=== PATIENT | female | born 1955 | race Caucasian/White ===

== ENCOUNTER 2022-03-22 09:41 | Observation (INO) | payer MEDICARE, SELFPAY ==
[2022-03-22] VITALS (8 sets, daily range): BP systolic 92–118; BP diastolic 49–58; PULSE 78–94; RESP 16–20; TEMP 36.3–38.5; O2SAT 94–97; BMI 35.4
--- NOTE | ~2022-03-22 | CT_ITS ---
EXAMINATION: CT abdomen pelvis wo con DATE: 03/22/2022 13:04 INDICATION: Abdominal pain. Leukocytosis. Fever. Diarrhea. TECHNIQUE: Computed tomography (CT) of the abdomen and pelvis was performed without intravenous contr ast. Automated exposure control and iterative reconstruction technique were employed. Exam dose: 193 6.93 mGy-cm total exam DLP. COMPARISON: None. FINDINGS: Mild discoid atelectasis or scarring at the lung bases. Normal Small sliding hiatal hernia.. Uniform the liver, spleen, pancreas are unremarkable. The gallbladder i s distended. No pericholecystic fluid or fat stranding. No bile duct or pancreatic duct dilatation. No Normal morphology of the left adrenal gland. Approximately 1.8 x 2.1 cm right adrenal mass, most likely an adenoma if there is no known malignancy . No renal mass lesion is evident on this limited noncontrast examination. No urinary tract calculus or hydroureteronephrosis. The urinary bladder is evacuated, not optimally demonstrated. The uterus and adnexal areas are unremarkable. Normal appendix. There is diverticulosis of the sigmoid colon; no CT evidence of diverticulitis. No b owel obstruction, bowel wall thickening, pneumatosis or intraperitoneal free air. There is atherosclerotic calcification but normal caliber of the abdominal aorta. No intraperitoneal or retroperitoneal or pelvic mass lesion or adenopathy or ascites. Bilateral severe hip osteoarthritis. There is levoscoliosis and severe degenerative disc disease throughout the lumbar and lumbosacral spi ne. IMPRESSION: Normal appendix Diverticulosis of the sigmoid colon; no CT evidence of diverticulitis Small sliding hiatal hernia 1.8 x 2.1 cm right adrenal mass Reviewed, dictated and finalized at [facility]. Reviewed, dictated and finalized at location A.
--- NOTE | ~2022-03-22 | XR_ITS ---
EXAMINATION: XR chest 1V portable DATE: 03/22/2022 11:37 INDICATION: Weakness. Leukocytosis. TECHNIQUE: A single frontal view of the chest was obtained. COMPARISON: Chest 2 views 03/27/15 FINDINGS: There is chronic blunting of left lateral costophrenic angle, consistent with scarring. No pneumonia, pleural effusion, or pneumothorax. The heart size is normal. There is an old healed left r ib fracture. IMPRESSION: 1. Chronic scarring in left lateral costophrenic angle. Reviewed, dictated and finalized at location A.
--- NOTE | 2022-03-22 09:52 | ED.GENADULT ---
HPI - General Adult General Chief complaint: Weakness Stated complaint: ambulance Time Seen by Provider: 03/22/22 09:53 Source: patient Mode of arrival: EMS History of Present Illness HPI narrative: 66-year-old female with a history of arthritis, bursitis was diagnosed with urinary tract infection yesterday and started on Macrobid. She presents to the ER today via EMS with -- body ache -- abdominal pain. pain is diffuse. no exacerbating or relieving factors. she denied fever Onset (ago): day(s) ( Since yesterday) Radiation: non-radiation Severity: mild Relieving factors: none Exacerbating factors: none Associated symptoms: denies other symptoms Treatments prior to arrival: none Related Data Home Medications Medication Instructions Recorded Confirmed bupropion HCl 150 mg 24 hr tablet, 1 tablet PO DAILY 03/22/22 03/22/22 extended release duloxetine 30 mg capsule,delayed 1 cap PO DAILY 03/22/22 03/22/22 release meloxicam 15 mg tablet 1 tablet PO DAILY 03/22/22 03/22/22 risperidone 0.5 mg tablet 1 tablet PO DAILY 03/22/22 03/22/22 rosuvastatin 20 mg tablet 1 tablet PO DAILY 03/22/22 03/22/22 trazodone 150 mg tablet 1 tablet PO HS 03/22/22 03/22/22 Allergies Allergy/AdvReac Type Severity Reaction Status Date / Time Sulfa (Sulfonamide Allergy Unknown Verified 03/22/22 10:21 Antibiotics) Review of Systems Review of Systems: All systems reviewed & are unremarkable except as noted in HPI and below Constitutional: Constitutional: Reports as per HPI and Reports no additional constitutional complaints Eyes: Eyes: Reports as per HPI and Reports no additional eye complaints ENT: Reports system reviewed and no additional complaints, except as documented and Reports as per HPI Cardiovascular: Cardiovascular: Reports as per HPI and Reports no additional cardiovascular complaints Respiratory: Respiratory: Reports as per HPI and Reports no additional respiratory complaints Gastrointestinal: Gastrointestinal: Reports as per HPI and Reports no additional gastrointestinal complaints Genitourinary: Genitourinary: Reports no additional female genitourinary complaints and Reports as per HPI Musculoskeletal: Musculoskeletal: Reports no additional musculoskeletal complaints, Reports as per HPI and Reports myalgias Integumentary/Breasts: Skin/Breast: Reports system reviewed and no additional complaints, except as docu and Reports as per HPI Neurologic: Reports system reviewed and no additional complaints, except as documented and Reports as per HPI Psychiatric: Psychiatric: Reports no additional psychiatric complaints and Reports as per HPI Endocrine: Endocrine: Reports no additional endocrine complaints and Reports as per HPI Hematologic/Lymphatic: Hematologic/Lymphatic: Reports no additional hematologic/lymphatic complaints and Reports as per HPI Allergic/Immunologic: Allergic/Immunologic: Reports no additional allergic/immunologic complaints and Reports as per HPI Exam Const: General: cooperative, healthy appearing and comfortable HENMT: Head: normal to inspection and No palpable skull fracture present Ears: hearing grossly normal bilaterally and external ears normal General nose exam: Normal external nose present and Normal nares present Face and sinus: normal facial exam and sinuses nontender Mouth: Yes Normal oral and palatal mucosa present, Yes lip normal and Yes tongue normal Throat: posterior oropharynx normal Eyes: General: appearance normal, both eyes and all related structures Neck: Neck: normal visual inspection and full ROM Chest: Chest palpation & inspection: normal inspection of the chest Resp: Effort & Inspection: normal respiratory effort Auscultation: clear to auscultation bilaterally Cardio: Jugular venous distension: no JVD Palpation: normal PMI Rate: regular rate Rhythm: regular rhythm Heart sounds: S1 normal heart sound present and S2 normal heart sound present GI: Inspection:
--- NOTE | 2022-03-22 09:59 | ECG_ITS ---
Measurements Intervals [place] Rate: 75 P: 63 ID: 136 QRS: 64 QRSD: 92 T: 53 QT: 360 QTc: 405 Interpretive Statements SINUS RHYTHM WITH SINUS ARRHYTHMIA BASELINE ARTIFACT- I, III, AVR, AVL, AVF NORMAL ECG Electronically Signed On 03-22-2022 10:16:11 CDT by Hugo Larsen D.O.
[2022-03-22 10:27] LABS: Basophils Absolute Auto 0.02 K/mm3 (0.00-0.10); Basophils Percent Auto 0.1 % (0.0-1.0); Eosinophils Absolute Auto 0.01 K/mm3 (0.02-0.50); Eosinophils Percent Auto 0.1 % (1.0-6.0); Hematocrit 39.9 % (35.0-42.0); Immature Granulocyte Absolute 0.06 K/mm3 (0.00-0.00); Immature Granulocyte Percent A 0.3 % (0.0-0.0); Lymphocytes Absolute Auto 0.07 K/mm3 (1.10-4.50); Lymphocytes Percent Auto 0.4 % (18.0-42.0); Mean Corpuscular HGB Conc 32.6 g/dL (32.0-36.0); Mean Corpuscular Volume 92.1 fL (78.0-102.0); Mean Platelet Volume 9.3 fl (9.2-11.8); Monocytes Absolute Auto 0.28 K/mm3 (0.10-0.90); Monocytes Percent Auto 1.6 % (2.0-11.0); Neutrophils Absolute Auto 17.3 K/mm3 (1.7-7.2); Neutrophils Percent Auto 97.5 % (50.0-70.0); Platelet Count Result 171 K/mm3 (150-420); Red Blood Count 4.33 M/mm3 (4.20-5.40); Red Cell Distribution Width 13.3 % (11.6-14.4); White Blood Count 17.8 K/mm3 (4.8-10.8)
[2022-03-22 10:40] LABS: INR 1.1; Prothrombin Time 11.5 Seconds (9.50-12.10)
[2022-03-22 10:44] LABS: SARS-CoV-2 Ag Negative (Negative)
[2022-03-22 10:46] LABS: Lactic Acid Reflex 1.2 mmol/L (0.4-2.0)
[2022-03-22 10:51] LABS: Alanine Aminotransferase 89 U/L (14-59); Albumin Level 3.1 g/dL (3.4-5.0); Alkaline Phosphatase 59 U/L (46-116); Anion Gap 7 mmol/L (8-16); Aspartate Amino Transferase 66 U/L (15-37); Bilirubin,Total 0.8 mg/dL (0.00-1.00); Blood Urea Nitrogen 22 mg/dL (7-18); Calcium 8.1 mg/dL (8.5-10.1); Carbon Dioxide 24 mmol/L (21-32); Chloride 108 mmol/L (98-108); Estimated Glomerular Filt Rate > 60; Glucose 111 mg/dL (70-99); Lipase 137 U/L (73-393); Osmolality Calculated 292 mOsm/kg (285-295); Potassium 3.9 mmol/L (3.5-5.1); Sodium 139 mmol/L (136-145); Total Protein 5.8 g/dL (6.4-8.2); Troponin I 7.9 ng/L (0.00-60.4)
[2022-03-22 11:14] LABS: Appearance Urine Clear (Clear); Bilirubin Urine Negative (Negative); Color Urine Dark Yellow (Yellow); Glucose Urine UA Negative (Negative); Ketones Urine Trace (Negative); Leukocyte Esterase Ur Negative (Negative); Nitrate Urine Negative (Negative); Protein Urine Trace (Negative); Urobilinogen Urine 0.2 mg/dL (0.2-1.0); pH Urine 6.5 (5.0-8.0)
[2022-03-22 11:19] LABS: Add Urine Microscopic? YES; Bacteria Urine Trace /hpf; Blood Urine Trace-lysed (Negative); Mucus Urine Moderate /lpf; RBC Urine 0-2 /hpf (0-2); Squamous Epithelial Cell Urine Moderate /hpf (Few); WBC Urine 0-3 /hpf (0-3)
[2022-03-22] MEDS: LACTATED RINGERS 1,000 ML 999 ML IV CONT (11:25)
--- NOTE | 2022-03-22 12:16 | PC.NURSE ---
rn called in to room by patient with c.o. shivering, blood sugar 109, temp 101.3. erp made aware.
[2022-03-22 12:19] LABS: Glucose Point of Care 102 mg/dl (65-105)
[2022-03-22] MEDS: ACETAMINOPHEN 325 MG TABLET 650 MG PO ×2 (12:19→21:44)
--- NOTE | 2022-03-22 13:05 | ADMGEN ---
This patient, Kymberly Osullivan, was admitted to 2nd Floor Room 209-1. Patient/family oriented to hospital policies and general routines including ID bracelet, bed and alarms, visiting hours, pain management, procedures, bathroom and other care routines, personal items, smoking policy, room service/diet, and visiting hours. Information on how to activate the Rapid Response Team has been discussed. Patient/Family are encouraged to report perceived risks to care and to ask questions if they do not understand what they are told or what they should do.
[2022-03-22] MEDS: HYDROcodone/acetaminophen (*CRX) 5-325 MG TABLET 1 TAB PO (13:15)
[2022-03-22] MEDS: SODIUM CHLORIDE 0.9% IV 1,000 ML 125 ML IV CONT ×2 (13:15→21:39)
[2022-03-22] MEDS: traMADol HCL (*CRX) 25 MG TABLET PO (20:19)
[2022-03-22] MEDS: traZODone HCL 50 MG TABLET 150 MG PO (20:20)
[2022-03-23] MEDS: SODIUM CHLORIDE 0.9% IV 1,000 ML 125 ML IV CONT (05:18)
[2022-03-23] MEDS: ACETAMINOPHEN 325 MG TABLET 650 MG PO (05:46)
[2022-03-23 08:00] VITALS: BP 114/56; PULSE 67; RESP 16; TEMP 36.1; O2SAT 96
[2022-03-23] MEDS: MELOXICAM 7.5 MG TABLET 15 MG PO (08:16)
[2022-03-23] MEDS: ROSUVASTATIN 10 MG TABLET 20 MG PO (08:17)
[2022-03-23] MEDS: PANTOPRAZOLE SOD SESQUIHYDRATE 20 MG TAB PO (08:17)
[2022-03-23] MEDS: buPROPion HCL XL (24 HR) 150 MG TABCR PO (08:18)
[2022-03-23] MEDS: risperiDONE 1 MG TABLET PO (08:18)
[2022-03-23] MEDS: DULoxetine HCL 30 MG CAPSULE.DR PO (08:18)
[2022-03-23] MEDS: ENOXAPARIN 40 MG/0.4 ML SYRINGE SUB-Q (08:19)
[2022-03-23 08:43] LABS: Hematocrit 38.3 % (35.0-42.0); Hemoglobin 12.4 g/dL (11.7-13.8); Mean Corpuscular HGB Conc 32.4 g/dL (32.0-36.0); Mean Corpuscular Hemoglobin 30.1 pg (27.0-31.0); Mean Platelet Volume 9.3 fl (9.2-11.8); Platelet Count Result 142 K/mm3 (150-420); Red Blood Count 4.12 M/mm3 (4.20-5.40); Red Cell Distribution Width 13.7 % (11.6-14.4); White Blood Count 6.9 K/mm3 (4.8-10.8)
--- NOTE | 2022-03-23 09:19 | PM.SD2 ---
Same Day Admit/Disch: HPI History of Present Illness Chief complaint: FEBRILE ILLNESS Narrative: Kymberly Osullivan is a 66 year old female that presented to emergency department with complaints of body aches and abdominal cramping. Patient has a past medical history of chronic lower back pain, bursitis of the hips and depression. According to patient approxi-1 day before her presentation to our ED she experienced abdominal cramping in body aches. At that time patient denied any nausea, vomiting, bloody stools, the p SOB, CP, palpitation, extremity numbness, lightheadedness, dizziness, constipation, diarrhea, chills, or fever. Patient notes that her symptoms have resolved since her admission and she feels as if she is ready to go home she does live alone denies any PT OT evaluation. Patient was being treated for urinary tract infection with Bactrim. UA does not indicate urinary tract infection patient denies any painful urination hematuria urgency or frequency she will not discharge home with antibiotics to treat urinary tract infection. Patient was treated for febrile illness this hospital stay which has resolved. Vital signs 114/56, 67, 16, 96.9, 96% on room air, WBC 17.8, hemoglobin 13.0, hematocrit 39.9, platelets 171, potassium 3.9, sodium 139, BUN 22, creatinine 0.88, glucose 111, lactic acid 1.2, AST 66, ALT 89, total bilirubin 0.8, troponin 7.9, UA with a trace of protein ketones blood COVID-negative chest x-ray no new findings CT of the abdomen indicates diverticulosis, hiatal hernia, and adrenal mass, EKG sinus rhythm with a heart rate of 78. Patient agrees that she is ready for discharge she will discharge today and follow-up with her primary care physician for follow-up of the adrenal mass she is no longer experiencing any body aches or abdominal cramps. [facility] Past Medical History Medical History (Updated 03/23/22 @ 09:43 by HELADIO Mckeon) Adrenal mass, right Depression Diverticulosis Hiatal hernia Social History Social History Smoking status: Never smoker Same Day Admit/Disch: Med Pre-admit Medications Home Medications Medication Instructions Recorded Confirmed Type bupropion HCl 150 mg 24 hr tablet, 1 tablet PO DAILY 03/22/22 03/22/22 History extended release duloxetine 30 mg capsule,delayed 1 cap PO DAILY 03/22/22 03/22/22 History release meloxicam 15 mg tablet 1 tablet PO DAILY 03/22/22 03/22/22 History risperidone 0.5 mg tablet 1 tablet PO DAILY 03/22/22 03/22/22 History rosuvastatin 20 mg tablet 1 tablet PO DAILY 03/22/22 03/22/22 History trazodone 150 mg tablet 1 tablet PO HS 03/22/22 03/22/22 History Exam Narrative: GENERAL: This is a well-nourished, well-developed patient, in no apparent distress. HEAD: normocephalic, atraumatic. EYES: PERRL. Sclera clear/white. Vision is grossly intact. EARS: External ears normal, auditory canals clear and without drainage, TMs normal without perforation. Hearing grossly intact. NOSE: External nose normal with no obvious nasal discharge, nares without redness, no rhinorrhea. THROAT: Mucous membranes moist, posterior pharynx clear. NECK: Neck supple, non-tender without lymphadenopathy, masses or thyromegaly. CARDIOVASCULAR: Regular rate and rhythm without murmurs, gallops, or rubs. RESPIRATORY: Clear to auscultation. Breath sounds equal bilaterally. No wheezes, rales, or rhonchi. GASTROINTESTINAL: Abdomen soft, non-tender, nondistended. Bowel sounds are active. No hepato-splenomegaly, or palpable masses. No guarding. SKIN: warm, intact with no suspicious lesions or rash, good texture and turgor. NEURO: awake, alert, and oriented to person, place and time. There were no obvious focal neurologic abnormalities. Steady gait EXTREMITIES: Normal range of motion. No edema. No calf tenderness. Negative Homans sign bilaterally. BACK: Nontender without deformity or crepitance. No flank tenderness. DS: Data D
--- NOTE | 2022-03-23 11:05 | PC.NURSE ---
IV access discontinued in preparation for discharge. Discharge instructions give to patient, and patient voiced understanding. Awaiting patient's ride to discharge from unit.
--- NOTE | 2022-03-23 11:25 | PC.NURSE ---
Patient transported off unit in w/c accompanied by her daughter and automobile and property underwriter. Patient left facility in privately owned vehicle. Personal belongings sent with patient.
--- NOTE | 2022-03-29 13:49 | PC.NURSE ---
Unable to contact for discharge call back.
== END 2022-03-23 11:25 | disposition home or self-care (01) ==
LOC: CHSED 12:35 → CHS2ND 12:41
PROVIDERS: Nurse Practitioner; Admitting Provider Internal Medicine; Emergency Provider Internal Medicine Critical Care Medicine; PCP Family Medicine; Visit Provider Internal Medicine
DX: R50.9 Fever, unspecified (principal); N39.0 Urinary tract infection, site not specified; K57.30 Diverticulosis of large intestine without perforation or abscess without bleeding; K44.9 Diaphragmatic hernia without obstruction or gangrene; E27.8 Other specified disorders of adrenal gland; M71.9 Bursopathy, unspecified; M19.90 Unspecified osteoarthritis, unspecified site; F32.A Depression, unspecified
CPT/HCPCS: 36415; 71045; 74176; 80053; 81001; 82948; 83605; 83690; 84443; 84484; 85025; 85027; 85610; 87040; 87426; 93005; 96360; 96361; 96365; 96372; 99285; A9270; C9803; G0378; J0696; J1650; J7030; J7120

== ENCOUNTER 2022-03-29 13:07 | Outpatient (CLI) | payer MEDICARE, SELFPAY ==
[2022-03-29 13:44] LABS: D Dimer 1.31 mg/L (0.19-0.50)
[2022-03-29 13:50] LABS: Alanine Aminotransferase 173 U/L (14-59); Alkaline Phosphatase 167 U/L (46-116); Anion Gap 5 mmol/L (8-16); Aspartate Amino Transferase 30 U/L (15-37); Bilirubin,Total 0.5 mg/dL (0.00-1.00); Blood Urea Nitrogen 12 mg/dL (7-18); Calcium 8.5 mg/dL (8.5-10.1); Carbon Dioxide 29 mmol/L (21-32); Chloride 107 mmol/L (98-108); Estimated Glomerular Filt Rate > 60; Glucose 80 mg/dL (70-99); Osmolality Calculated 290 mOsm/kg (285-295); Potassium 3.8 mmol/L (3.5-5.1); Sodium 141 mmol/L (136-145); Total Protein 6.4 g/dL (6.4-8.2)
== END 2022-03-29 13:08 | disposition home or self-care (01) ==
LOC: CHSLAB 13:13
PROVIDERS: PCP Family Medicine; Visit Provider Family Medicine
DX: M79.604 Pain in right leg (principal); E27.8 Other specified disorders of adrenal gland; N39.0 Urinary tract infection, site not specified
CPT/HCPCS: 36415; 80053; 85380; 87086

== ENCOUNTER 2022-03-29 15:44 | Outpatient (CLI) | payer MEDICARE, SELFPAY ==
--- NOTE | ~2022-03-29 | US_ITS ---
EXAMINATION: US venous doppler [facility] DATE: 03/29/2022 16:55 INDICATION: ELEVATED D DIMER . TECHNIQUE: Grayscale images without and with compression and Doppler images of the bilateral lower ex tremity veins were obtained. COMPARISON: None FINDINGS: The right common femoral vein, profunda (deep) femoral vein, femoral vein, popliteal vein, peroneal v ein, posterior tibial veins, gastrocnemius vein, and greater saphenous vein are patent. The left common femoral vein, profunda femoral vein, femoral vein, popliteal vein, peroneal vein, pos terior tibial veins, gastrocnemius vein, and greater saphenous vein are patent. IMPRESSION: 1. Patent bilateral lower extremity veins. No evidence of deep venous thrombosis. Reviewed, dictated and finalized at location K. IMPRESSION: 1. Patent bilateral lower extremity veins. No evidence of deep venous thrombos is.
== END 2022-03-29 15:45 | disposition home or self-care (01) ==
PROVIDERS: PCP Family Medicine; Visit Provider Family Medicine
DX: R79.89 Other specified abnormal findings of blood chemistry (principal)
CPT/HCPCS: 93970

== ENCOUNTER 2022-04-07 14:05 | Outpatient (CLI) | payer MEDICARE, SELFPAY ==
--- NOTE | ~2022-04-07 | CT_ITS ---
EXAMINATION: CT abdomen wo/w con DATE: 04/07/2022 14:57 INDICATION: TECHNIQUE: Computed tomography (CT) of the abdomen and pelvis was performed without and with 100 cc O mnipaque 300 intravenous contrast. The dose-length product was 2174.20 mGy-cm. Automated exposure con trol and iterative reconstruction technique were employed. COMPARISON: CT dated 03/22/2022. FINDINGS: There is a low-density right adrenal mass measuring 10 Hounsfield units precontrast, compat ible with benign adenoma measuring 1.5 cm. There is left lower lobe atelectasis/scarring. Postcontras t immediate and delayed images performed which demonstrates 78% absolute washout and 64% relative was hout. Absolute washout of 60% or higher is consistent with an adenoma. The spleen, pancreas, left adr enal gland and liver are unremarkable. Gallbladder is present. Small fat-containing umbilical hernia. Nonobstructive bowel gas pattern. No free air or free fluid. IMPRESSION: 1. 1.5 cm right adrenal adenoma. Reviewed, dictated and finalized at location A.
== END 2022-04-07 14:06 | disposition home or self-care (01) ==
PROVIDERS: PCP Family Medicine; Visit Provider Family Medicine
DX: E27.8 Other specified disorders of adrenal gland (principal); D35.01 Benign neoplasm of right adrenal gland
CPT/HCPCS: 74170; Q9967

== ENCOUNTER 2022-06-15 12:39 | Outpatient (CLI) | payer MEDICARE, SELFPAY ==
--- NOTE | ~2022-06-15 | XR_ITS ---
EXAMINATION:XR cervical spine 4-5V DATE: 06/15/2022 13:01 INDICATION: Neck pain TECHNIQUE: AP, lateral, lateral swimmers and odontoid views of the cervical spine are provided. COMPARISON: None FINDINGS: There are 2 mm of retrolisthesis of C3 on C4. The odontoid is intact. No fracture is identi fied. The vertebral body heights are maintained. There is moderate loss of intervertebral disc space height from C3-4 through C6-7. There is severe multilevel facet and uncovertebral joint osteoarthriti s. Prevertebral soft tissues are normal. IMPRESSION: 1. Moderate to severe cervical spondylosis without acute findings. Reviewed, dictated and finalized at location B.
== END 2022-06-15 12:40 | disposition home or self-care (01) ==
PROVIDERS: PCP Family Medicine; Visit Provider Family Medicine
DX: M47.892 Other spondylosis, cervical region (principal)
CPT/HCPCS: 72050

== ENCOUNTER 2022-11-21 15:04 | Outpatient (CLI) | payer MEDICARE, SELFPAY ==
--- NOTE | ~2022-11-21 | US_ITS ---
EXAMINATION: US venous doppler [facility] DATE: 11/21/2022 15:47 INDICATION: Left lower limb pain and swelling. TECHNIQUE: Grayscale ultrasound images without and with compression and Doppler ultrasound images of the left lower extremity veins were obtained. COMPARISON: Ultrasound 03/29/2022 FINDINGS: The visualized portions of left common femoral vein, profunda (deep) femoral vein, femoral vein, popl iteal vein, peroneal veins, posterior tibial veins, and greater saphenous vein outflow are patent. IMPRESSION: 1. No deep venous thrombosis. Reviewed, dictated and finalized at location A.
== END 2022-11-21 15:05 | disposition home or self-care (01) ==
PROVIDERS: PCP Family Medicine
DX: M79.89 Other specified soft tissue disorders (principal)
CPT/HCPCS: 93971

== ENCOUNTER 2022-11-29 13:47 | Outpatient (RCR) | payer MEDICARE, SELFPAY ==
--- NOTE | 2022-11-29 14:40 | PTOPEVAL1 ---
Assessment and note entered by JT File, PT Evaluation Information Assessment Status Evaluation Diagnosis s/p L RICH Onset 10/09/22 Subjective Information patient reports she had her L hip replaced on . she reports she had a lot of arthritis in the L hip prior to surgery, and had a lot of difficulty getting around/walking. she reports since she has been having a lot of pain in the L leg. she reports the pain is in the thigh. she reports it feels like a knife is sticking into her leg. she reports she does have back issues. Reported Pain Level Pain Score 8: Self Report Assessment PT Clinical Summary mrs. salamanca is a 67 yo woman who presents to skilled PT services for evaluation and treatment of pain and weakness in the L hip/LE following L RICH. she presents this date with signs and symptoms of ITB pain and hip weakness, but lumbar radiculopathy cannot be ruled out at this time. she would benefit from skilled PT to improve her objective/ functional deficits, and progress towards a return to her prior level functional activity performance/quality of life. Plan of Care Interventions Electrical Stimulation,Gait Training,Hot Pack/Cold Pack,Manual Therapy,Neuro Re-education,Patient/ Caregiver Educati,Therapeutic Activities, Therapeutic Exercise PT Services Indicated Yes Treatment Frequency and 2x weekly for 10 visits Duration These treatments will address the objective and functional deficits as defined above. The patient will be advanced safely and appropriately in order for the patient to progress towards his/her prior level of function. Additional exercises will be introduced and as well as a comprehensive home exercise program upon discharge, if needed, ?to ensure carryover of functional gains achieved in the clinic. This treatment plan has been reviewed and agreement upon by the patient.
--- NOTE | 2023-01-09 14:41 | PTOPDC ---
Assessment and note entered by Nidhi Ahumada DPT Evaluation Information Assessment Status Re-evaluation Diagnosis s/p L RICH Onset 10/09/22 Subjective Information Patient reports that since start of PT LE strength has improved. She reports that she is able to do activity longer before fatiguing. She does report she is unable to stand or walk for prolonged periods. She reports she would like to make today her last visit. Reported Pain Level Pain Score 4: Self Report Assessment PT Clinical Summary Patient has been seen for 10 visits of skilled PT from 11/29/22-01/09/23. She partially met goals but made good progress towards all. She demonstrated improved LE strength and hip ROM but continues to have difficulty with prolonged ambulation and standing. She also demonstrated a 27% improvement on LEFS score. She was educated on independent HEP this date and will be discharged at this time. Plan of Care PT Services Indicated No
== END 2023-01-09 16:55 | disposition home or self-care (01) ==
LOC: CHSPT 13:47
DX: Z47.1 Aftercare following joint replacement surgery (principal); Z96.642 Presence of left artificial hip joint
CPT/HCPCS: 97014; 97110; 97112; 97140; 97161; 97530; G0283

== ENCOUNTER 2022-12-26 11:00 | Outpatient (CLI) | payer MEDICARE, SELFPAY ==
[2022-12-26 11:17] LABS: Basophils Absolute Auto 0.03 K/mm3 (0.00-0.10); Basophils Percent Auto 0.3 % (0.0-1.0); Eosinophils Absolute Auto 0.21 K/mm3 (0.02-0.50); Eosinophils Percent Auto 2.4 % (1.0-6.0); Hematocrit 42.6 % (35.0-42.0); Hemoglobin 13.6 g/dL (11.7-13.8); Immature Granulocyte Absolute 0.03 K/mm3 (0.00-0.00); Immature Granulocyte Percent A 0.3 % (0.0-0.0); Lymphocytes Absolute Auto 1.78 K/mm3 (1.10-4.50); Mean Corpuscular HGB Conc 31.9 g/dL (32.0-36.0); Mean Corpuscular Hemoglobin 29.1 pg (27.0-31.0); Monocytes Absolute Auto 0.39 K/mm3 (0.10-0.90); Monocytes Percent Auto 4.4 % (2.0-11.0); Neutrophils Absolute Auto 6.5 K/mm3 (1.7-7.2); Neutrophils Percent Auto 72.6 % (50.0-70.0); Platelet Count Result 271 K/mm3 (150-420); Red Blood Count 4.68 M/mm3 (4.20-5.40); Red Cell Distribution Width 13.2 % (11.6-14.4); White Blood Count 8.9 K/mm3 (4.8-10.8)
[2022-12-26 11:49] LABS: Strep Group A RT-PCR NOT DETECTED (Negative)
[2022-12-26 11:51] LABS: Alanine Aminotransferase 22 U/L (14-59); Albumin Level 3.6 g/dL (3.4-5.0); Alkaline Phosphatase 78 U/L (46-116); Anion Gap 8 mmol/L (8-16); Aspartate Amino Transferase 18 U/L (15-37); Bilirubin,Total 0.3 mg/dL (0.00-1.00); Blood Urea Nitrogen 28 mg/dL (7-18); Carbon Dioxide 31 mmol/L (21-32); Chloride 104 mmol/L (98-108); Estimated Glomerular Filt Rate 59; Glucose 94 mg/dL (70-99); Osmolality Calculated 301 mOsm/kg (285-295); Potassium 4.4 mmol/L (3.5-5.1); Sodium 143 mmol/L (136-145); Thyroid Stimulating Hormone 1.23 uIU/mL (0.36-3.74); Total Protein 6.9 g/dL (6.4-8.2)
[2022-12-26 11:57] LABS: Influenza A QL RT-PCR Negative (Negative); Influenza B QL RT-PCR Negative (Negative); SARS-CoV-2 RNA PCR Negative (Negative)
== END 2022-12-26 11:01 | disposition home or self-care (01) ==
LOC: CHSLAB 11:03
PROVIDERS: PCP Family Medicine; Visit Provider Family Medicine
DX: R53.83 Other fatigue (principal); R51.9 Headache, unspecified; J02.9 Acute pharyngitis, unspecified
CPT/HCPCS: 36415; 80053; 84443; 85025; 87636; 87651

== ENCOUNTER 2023-04-10 15:50 | Outpatient (RCR) | payer MEDICARE, SELFPAY ==
--- NOTE | 2023-04-10 17:09 | PTOPEVAL1 ---
Assessment and note entered by Marti Mendez, PT Evaluation Information Assessment Status Evaluation Diagnosis lumbar spinal stenosis Subjective Information Kymberly Osullivan reports she has been having low back pain that increases with walking, twisting, and lifting/carrying household items. She notes stiffness as well. She is using her rollator walker to place household items on the seat and move them around the house. She has to use curbside rock picker or just go in for a few items because she can not walk long enough to grocery shop. She had a left total hip replacement in September 2022 and she feels her low back pain has been exacerbated due to compensation for her hip. She also reports she fell out of bed about one month ago and her right shoulder has been hurting since then which leads to even more difficulty with lifting/carrying household items. Reported Pain Level Pain Score 5: Self Report Assessment PT Clinical Summary Kymberly Osullivan presents with low back pain with a spinal stenosis diagnosis. She reports her back pain started while she was recovering from a left total hip arthroplasty performed in September 2022. She objectively demonstrates impaired gait, decreased balance, decreased and painful lumbar AROM, and tenderness at the left quadratus lumborum. She has limitations with standing, walking, lifting, and carrying which leads to deficits in her ability to perform household activities and grocery shop. She will benefit from skilled PT to address these limitations and improve ability to perform daily activities. Plan of Care Interventions Electrical Stimulation,Hot Pack/Cold Pack,Manual Therapy,Neuro Re-education,Patient/Caregiver Educati,Therapeutic Activities,Therapeutic Exercise PT Services Indicated Yes Treatment Frequency and 2 times a week for 12 visits Duration These treatments will address the objective and functional deficits as defined above. The patient will be advanced safely and appropriately in order for the patient to progress towards his/her prior level of function. Additional exercises will be introduced and as well as a comprehensive home exercise program upon discharge, if needed, ?to ensure carryover of functional gains achieved in the clinic. This treatment plan has been reviewed and agreement upon by the patient.
--- NOTE | 2023-04-10 17:09 | OPREHPOC ---
Outpatient Therapy Plan of Care This is a Multidisciplinary Plan of Care that may contain components documented by all disciplines (PT, OT, and ST.) PT Problem 1 PT Problem #1 Knowledge Deficit PT Goal 1 Goal The patient will be independent in a home exercise program to continue after discharge from formal PT. Target Visit 12 PT Problem 2 PT Problem #2 Pain PT Goal 1 Goal The patient will report a reduction in low back pain to no greater than 3/10 with ADLs. Target Visit 12 PT Problem 3 PT Problem #3 Impaired Strength PT Goal 1 Goal The patient will demonstrate 4+/5 strength in the left gluteus medius to improve gait and balance. Target Visit 12 PT Problem 4 PT Problem #4 Impaired Gait PT Goal 1 Goal The patient will demonstrate a non antalgic gait pattern and walk at least 1,000 feet during a 6 min walk test to improve community ambulation. Target Visit 12
--- NOTE | 2023-05-11 15:26 | PCPTNOTE ---
follow up from early visit and referral to ED services. patient is negative for DVT in the R LE. will call to get back on schedule and finish remaining visits on her POC.
--- NOTE | 2023-05-18 11:21 | OPREHPOC ---
Outpatient Therapy Plan of Care This is a Multidisciplinary Plan of Care that may contain components documented by all disciplines (PT, OT, and ST.) PT Problem 1 PT Problem #1 Knowledge Deficit PT Goal 1 Goal The patient will be independent in a home exercise program to continue after discharge from formal PT. Target Visit 12 Progress Met PT Problem 2 PT Problem #2 Pain PT Goal 1 Goal The patient will report a reduction in low back pain to no greater than 3/10 with ADLs. Target Visit 12 Progress Not Met PT Problem 3 PT Problem #3 Impaired Strength PT Goal 1 Goal The patient will demonstrate 4+/5 strength in the left gluteus medius to improve gait and balance. Target Visit 12 Progress Met PT Problem 4 PT Problem #4 Impaired Gait PT Goal 1 Goal The patient will demonstrate a non antalgic gait pattern and walk at least 1,000 feet during a 6 min walk test to improve community ambulation. Target Visit 12 Progress Not Met
--- NOTE | 2023-05-18 11:22 | PTOPDC ---
Assessment and note entered by JT File, PT Evaluation Information Assessment Status Discharge Diagnosis lumbar spinal stenosis Onset 04/05/23 Subjective Information patient reports her back hurts today, but also reports she is having pain in the R knee over the past few weeks. she reports she has a lot of pain in the R knee with getting up and down from a chair. patient reports she has increased pain in the lower back with walking and standing. Reported Pain Level Pain Score 7,7: Self Report Assessment PT Clinical Summary mrs. salamanca presents to skilled PT services for her 12th skilled PT visit today. she continues to report pain in the lower back that is unchanged in intensity since beginning therapy. she also reports new pain in the R knee beginning about 2 weeks ago. per her re-evalaution today, patient presents with continued DDD in the lumbar spine, and signs/symptoms of hip OA in the R hip. she has met only her goal for HEP performance as of this date, and subjectively reports feeling no significant improvement since beginning skilled PT . she will DC skilled PT and return to MD for evaluation/imaging of the R hip, and referral to seek pain management services for the lower back. Plan of Care PT Services Indicated Yes
== END 2023-05-18 09:38 | disposition home or self-care (01) ==
LOC: CHSPT 15:50
PROVIDERS: PCP Family Medicine; Visit Provider Anesthesiology Pain Medicine
DX: M48.062 Spinal stenosis, lumbar region with neurogenic claudication (principal)
CPT/HCPCS: 97014; 97110; 97140; 97161; 97530; G0283

== ENCOUNTER 2023-04-16 13:41 | Outpatient (CLI) | payer MEDICARE, SELFPAY | END 2023-04-16 13:42 | disposition home or self-care (01) | LOC: CHSCARD 13:44 | PROVIDERS: PCP Family Medicine; Visit Provider Family Medicine | DX: J45.909 Unspecified asthma, uncomplicated (principal); J44.9 Chronic obstructive pulmonary disease, unspecified; R94.2 Abnormal results of pulmonary function studies | CPT/HCPCS: 94060; 94726; 94729 ==

== ENCOUNTER 2023-05-11 11:09 | Emergency (ER) | payer MEDICARE, SELFPAY ==
--- NOTE | ~2023-05-11 | US_ITS ---
EXAMINATION: US venous doppler LE RT DATE: 05/11/2023 11:47 INDICATION: Right lower limb swelling TECHNIQUE: Grayscale ultrasound images without and with compression and Doppler ultrasound images of the right lower extremity veins were obtained. COMPARISON: None. FINDINGS: The visualized portions of right common femoral vein, profunda (deep) femoral vein, femoral vein, pop liteal vein, peroneal trunk, posterior tibial veins, peroneal veins, gastrocnemius vein and greater s aphenous vein outflow are patent. IMPRESSION: 1. No deep venous thrombosis in the right lower limb. Reviewed, dictated and finalized at location A.
[2023-05-11 11:10] VITALS: BP 119/72; PULSE 87; RESP 20; TEMP 36.7; O2SAT 96
--- NOTE | 2023-05-11 11:25 | ED.LOWEXIN ---
HPI - Extremity Injury (Lower) General Chief Complaint: Extremity Problem,Nontraumatic Stated Complaint: DVT r/o Time Seen by Provider: 05/11/23 11:13 Source: patient Mode of arrival: ambulatory Limitations: no limitations History of Present Illness HPI Narrative: patient is a 67-year-old female doing physical therapy here at the hospital for her back pain. She complained of right lower extremity swelling and pain to the therapist and they called the primary doctor who wanted ER visit for ultrasound to rule out DVT. Onset (ago): day(s) (1) Place: home Severity: mild Severity scale (1-10): 3 Relieving factors: nothing Exacerbating factors: nothing Other symptoms: none Related Data Home Medications Medication Instructions Recorded Confirmed bupropion HCl 150 mg 24 hr tablet, 1 tablet PO DAILY 03/22/22 03/22/22 extended release duloxetine 30 mg capsule,delayed 1 cap PO DAILY 03/22/22 03/22/22 release meloxicam 15 mg tablet 1 tablet PO DAILY 03/22/22 03/22/22 risperidone 0.5 mg tablet 1 tablet PO DAILY 03/22/22 03/22/22 rosuvastatin 20 mg tablet 1 tablet PO DAILY 03/22/22 03/22/22 trazodone 150 mg tablet 1 tablet PO HS 03/22/22 03/22/22 Allergies Allergy/AdvReac Type Severity Reaction Status Date / Time Sulfa (Sulfonamide Allergy Unknown Verified 03/22/22 10:21 Antibiotics) Review of Systems Review of Systems: All systems reviewed & are unremarkable except as noted in HPI and below Constitutional: Constitutional: Reports no additional constitutional complaints Eyes: Eyes: Reports no additional eye complaints ENT: Reports system reviewed and no additional complaints, except as documented Cardiovascular: Cardiovascular: Reports no additional cardiovascular complaints Respiratory: Respiratory: Reports no additional respiratory complaints Gastrointestinal: Gastrointestinal: Reports no additional gastrointestinal complaints Genitourinary: Genitourinary: Reports no additional female genitourinary complaints Musculoskeletal: Musculoskeletal: Reports no additional musculoskeletal complaints Integumentary/Breasts: Skin/Breast: Reports system reviewed and no additional complaints, except as docu Neurologic: Reports system reviewed and no additional complaints, except as documented Psychiatric: Psychiatric: Reports no additional psychiatric complaints Endocrine: Endocrine: Reports no additional endocrine complaints Hematologic/Lymphatic: Hematologic/Lymphatic: Reports no additional hematologic/lymphatic complaints Allergic/Immunologic: Allergic/Immunologic: Reports no additional allergic/immunologic complaints [facility] Past Medical History Medical History Adrenal mass, right Depression Diverticulosis Hiatal hernia Social History Social History Smoking status: Never smoker Exam Const: General: healthy appearing, no acute distress and alert Resp: Effort & Inspection: normal respiratory effort, not labored and no retractions Auscultation: clear to auscultation bilaterally and no crackles Cardio: Rate: regular rate Rhythm: regular rhythm Heart sounds: no murmurs GI: Inspection: non-distended GI Palp: Yes Soft to palpation, No Tenderness to palpation present (GI) and No Guarding due to palpation present (GI) Auscultation: normal bowel sounds Back/Spine/Pelvis: Back: no CVA tenderness and No CVA tenderness Cervical Spine: No collar present Skin: General skin exam: normal color, no jaundice and no pallor Neuro: General: patient oriented x3, moves all extremities and no meningeal signs Extrem: General: abnormal to inspection, no clubbing, cyanosis or edema and no pedal edema Other: Right lower extremity is slightly swollen at the calf and ankle with +1 edema and tenderness to palpation with slight redness locally Psych: Mental Status: mental status grossly normal [employer]
--- NOTE | 2023-05-11 11:30 | PC.NURSE ---
pt out of department for uls. per wheelchair
== END 2023-05-11 12:15 | disposition home or self-care (01) ==
PROVIDERS: Emergency Provider Emergency Medicine; PCP Family Medicine
DX: R60.0 Localized edema (principal)
CPT/HCPCS: 93971; 99284

== ENCOUNTER 2023-06-15 10:27 | Outpatient (CLI) | payer MEDICARE, SELFPAY ==
[2023-06-15 11:23] LABS: Alanine Aminotransferase 26 U/L (14-59); Albumin Level 3.7 g/dL (3.4-5.0); Alkaline Phosphatase 68 U/L (46-116); Anion Gap 6 mmol/L (8-16); Aspartate Amino Transferase 16 U/L (15-37); Bilirubin,Total 0.4 mg/dL (0.00-1.00); Blood Urea Nitrogen 27 mg/dL (7-18); Calcium 9.1 mg/dL (8.5-10.1); Carbon Dioxide 29 mmol/L (21-32); Chloride 107 mmol/L (98-108); Estimated Glomerular Filt Rate 53; Glucose 77 mg/dL (70-99); Osmolality Calculated 298 mOsm/kg (285-295); Potassium 4.5 mmol/L (3.5-5.1); Sodium 142 mmol/L (136-145); Total Protein 6.5 g/dL (6.4-8.2)
== END 2023-06-15 10:28 | disposition home or self-care (01) ==
LOC: CHSLAB 10:32
DX: E78.01 Familial hypercholesterolemia (principal)
CPT/HCPCS: 36415; 80053

== ENCOUNTER 2023-06-28 08:52 | Outpatient (CLI) | payer MEDICARE, SELFPAY ==
[2023-06-28 09:49] LABS: Alanine Aminotransferase 27 U/L (14-59); Albumin Level 3.7 g/dL (3.4-5.0); Alkaline Phosphatase 65 U/L (46-116); Anion Gap 10 mmol/L (8-16); Aspartate Amino Transferase 16 U/L (15-37); Bilirubin,Total 0.4 mg/dL (0.00-1.00); Blood Urea Nitrogen 20 mg/dL (7-18); Carbon Dioxide 28 mmol/L (21-32); Chloride 106 mmol/L (98-108); Cholesterol 123 mg/dL (0-200); Estimated Glomerular Filt Rate 60; Glucose 99 mg/dL (70-99); HDL Direct 52 mg/dL (40-60); LDL Cholesterol Calculated 50 mg/dL (<130); Osmolality Calculated 300 mOsm/kg (285-295); Potassium 4.5 mmol/L (3.5-5.1); Sodium 144 mmol/L (136-145); Total Protein 6.4 g/dL (6.4-8.2); Triglycerides 104 mg/dL (0-150)
== END 2023-06-28 08:53 | disposition home or self-care (01) ==
DX: E78.01 Familial hypercholesterolemia (principal)
CPT/HCPCS: 36415; 80053; 80061

== ENCOUNTER 2023-07-27 13:20 | Outpatient (CLI) | payer MEDICARE, SELFPAY ==
--- NOTE | ~2023-07-27 | MM_ITS ---
EXAMINATION: MM screening giulia BI w raghavendra HISTORY: Screening mammogram TECHNIQUE: Craniocaudal and mediolateral oblique 3-D tomosynthesis images were obtained and synthetic 2-D images were generated. CAD analysis was submitted and interpreted. COMPARISON: No prior mammogram is available for comparison at this institution. BREAST PARENCHYMAL COMPOSITION: There are scattered areas of fibroglandular density. FINDINGS: RIGHT BREAST: There is focal asymmetry in the subareolar aspect of the right breast. LEFT BREAST: There are grouped calcifications in the middle third of the upper outer quadrant of the breast. IMPRESSION: 1. Bilateral breast findings as described above which may represent the patient's baseline however no comparison is currently available. 2. Comparison with prior mammograms is necessary. BI-RADS Category 0: Incomplete: Needs comparison with prior mammograms. Reviewed, dictated and finalized at location A. 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 Bilateral breast findings as described above which may represent the patient 's baseline however no comparison is currently available. 2. Comparison with prior mammograms is necessary. BI-RADS Category 0: Incomplete: Needs comparison with prior mammograms.
== END 2023-07-27 13:21 | disposition home or self-care (01) ==
LOC: CHSIMG 13:21
DX: Z12.31 Encounter for screening mammogram for malignant neoplasm of breast (principal); R92.8 Other abnormal and inconclusive findings on diagnostic imaging of breast
CPT/HCPCS: 77063; 77067

== ENCOUNTER 2023-10-20 13:46 | Outpatient (CLI) | payer MEDICARE, SELFPAY | END 2023-10-20 13:47 | disposition home or self-care (01) | LOC: CHSLAB 13:50 | DX: Z51.81 Encounter for therapeutic drug level monitoring (principal); Z79.899 Other long term (current) drug therapy | CPT/HCPCS: 80307; 80349; 80361; G0480 ==

== ENCOUNTER 2024-02-22 19:19 | Emergency (ER) | payer MEDICARE, SELFPAY ==
[2024-02-22 19:27] VITALS: BP 149/84; PULSE 70; RESP 18; TEMP 36.3; O2SAT 97
--- NOTE | 2024-02-22 19:30 | ECG_ITS ---
Test Date: 2024-02-22 19:41:40 Measurements Intervals [place] Rate: 69 P: 58 [place]: 147 QRS: 66 QRSD: 95 T: 67 QT: 382 QTc: 411 Interpretive Statements SINUS RHYTHM WITH SINUS ARRHYTHMIA borderline ECG No previous ECG available for comparison Electronically Signed On 02-25-2024 11:25:46 CDT by Rosas Molina M.D.
--- NOTE | 2024-02-22 19:32 | ED.CHESTPAIN ---
HPI - Chest Pain General Chief Complaint: Chest Pain Stated Complaint: Indigestion/heartburn Time Seen by Provider: 02/22/24 19:30 Source: patient Mode of arrival: ambulatory History of Present Illness HPI narrative: patient is a 60-year-old female with significant past medical history that presents today for indigestion/ abdominal/chest pain. She states she has had ingestion very bad for the last 3-4 days now. She says she has taken [id number] medications prior sec and famotidine and has not had any relief with that. She states she did not eat very much because this but then today went to [employer] and had a cheeseburger and a shake because she thought she needed some food in her and that made it worse. She states she has had heartburn in the past and this does feel similar to that. She does have a little chest pain with heartburn but denies any shortness of breath or any other symptoms. MD complaint: chest discomfort and other (GERD) Pertinent past history: other (prior GERD) Onset (ago): day(s) Timing of current episode: constant Prior episodes: Yes Onset: after eating Pain location: epigastric Pain radiation: none Severity: mild Pain scale (0-10): 3 Quality: heaviness, dull and burning Relieving factors: antacids Exacerbating factors: nothing Associated symptoms: nausea Treatment prior to arrival: other ( antacids ) Risk Factors Coronary artery disease risk factors: none Related Data Home Medications Medication Instructions Recorded Confirmed bupropion HCl 150 mg 24 hr tablet, 1 tablet PO DAILY 03/22/22 02/22/24 extended release duloxetine 30 mg capsule,delayed 1 cap PO DAILY 03/22/22 02/22/24 release meloxicam 15 mg tablet 1 tablet PO DAILY 03/22/22 02/22/24 risperidone 0.5 mg tablet 1 tablet PO DAILY 03/22/22 02/22/24 rosuvastatin 20 mg tablet 1 tablet PO DAILY 03/22/22 02/22/24 trazodone 150 mg tablet 1 tablet PO HS 03/22/22 02/22/24 Allergies Allergy/AdvReac Type Severity Reaction Status Date / Time Sulfa (Sulfonamide Allergy Unknown Verified 03/22/22 10:21 Antibiotics) Review of Systems Review of Systems: All systems reviewed & are unremarkable except as noted in HPI and below Constitutional: Constitutional: Reports as per HPI Eyes: Eyes: Reports no additional eye complaints ENT: Reports system reviewed and no additional complaints, except as documented Cardiovascular: Cardiovascular: Reports chest pain Respiratory: Respiratory: Reports no additional respiratory complaints Gastrointestinal: Gastrointestinal: Reports abdominal pain, Reports bloating and Reports heartburn Genitourinary: Genitourinary: Reports no additional female genitourinary complaints Musculoskeletal: Musculoskeletal: Reports no additional musculoskeletal complaints Integumentary/Breasts: Skin/Breast: Reports system reviewed and no additional complaints, except as docu Neurologic: Reports system reviewed and no additional complaints, except as documented Psychiatric: Psychiatric: Reports no additional psychiatric complaints Endocrine: Endocrine: Reports no additional endocrine complaints Hematologic/Lymphatic: Hematologic/Lymphatic: Reports no additional hematologic/lymphatic complaints Allergic/Immunologic: Allergic/Immunologic: Reports no additional allergic/immunologic complaints [facility] Past Medical History Medical History Adrenal mass, right Depression Diverticulosis Hiatal hernia Social History Social History Smoking status: Never smoker Exam Const: General: healthy appearing Nutritional Appearance: well nourished Orientation/consciousness: patient oriented x3 HENMT: Head: normal to inspection Ears: external ears normal Face/Nose/Sinus: Normal external nose present Face and sinus: normal facial exam Eyes: Conjunctivae: conjunctivae normal Pupils: Equal, round and reactiv
--- NOTE | 2024-02-22 19:35 | PC.NURSE ---
Cardiopulmonary at the bedside. Lab notified of new orders
--- NOTE | 2024-02-22 19:39 | PC.NURSE ---
Addendum entered by Rukhsana Monroy RN 02/22/24 19:39: at the bedside Original Note: lab
[2024-02-22 19:44] LABS: Basophils Absolute Auto 0.02 K/mm3 (0.00-0.10); Basophils Percent Auto 0.2 % (0.0-1.0); Hematocrit 42.4 % (35.0-42.0); Hemoglobin 13.8 g/dL (11.7-13.8); Immature Granulocyte Absolute 0.03 K/mm3 (0.00-0.00); Immature Granulocyte Percent A 0.3 % (0.0-0.0); Lymphocytes Absolute Auto 0.73 K/mm3 (1.10-4.50); Lymphocytes Percent Auto 7.3 % (18.0-42.0); Mean Corpuscular HGB Conc 32.5 g/dL (32-36); Mean Corpuscular Hemoglobin 30.3 pg (27.0-31.0); Mean Platelet Volume 9.3 fl (9.2-11.8); Monocytes Absolute Auto 0.33 K/mm3 (0.10-0.90); Monocytes Percent Auto 3.3 % (2.0-11.0); Neutrophils Absolute Auto 8.84 K/mm3 (1.70-7.20); Neutrophils Percent Auto 87.9 % (50.0-70.0); Platelet Count Result 228 K/mm3 (150-420); Red Blood Count 4.56 M/mm3 (4.20-5.40); Red Cell Distribution Width 12.2 % (11.6-14.4); White Blood Count 10.1 K/mm3 (4.8-10.8)
[2024-02-22] MEDS: MAG HYDROX/ALUMINUM HYD/SIMETH 30 ML, PHENobarb/HYOSCY/ATROPINE/SCOP 32.4 MG, LIDOCAINE... PO (19:51)
[2024-02-22] MEDS: SODIUM CHLORIDE 0.9% IV 1,000 ML 999 ML IV CONT (19:51)
[2024-02-22] MEDS: KETOROLAC 30 MG/ML VIAL (*BKC) IV PUSH (19:52)
[2024-02-22] MEDS: ONDANSETRON INJ 4 MG/2 ML VIAL IV PUSH (19:52)
[2024-02-22] MEDS: PANTOPRAZOLE SODIUM IV 40 MG VIAL IV PUSH (19:52)
[2024-02-22 20:02] LABS: Alanine Aminotransferase 120 U/L (14-59); Albumin Level 3.4 g/dL (3.4-5.0); Alkaline Phosphatase 80 U/L (46-116); Anion Gap 11 mmol/L (4-12); Aspartate Amino Transferase 164 U/L (15-37); Bilirubin,Total 0.8 mg/dL (0.00-1.00); Blood Urea Nitrogen 23 mg/dL (7-18); Calcium 8.8 mg/dL (8.5-10.1); Carbon Dioxide 27 mmol/L (21-32); Chloride 104 mmol/L (98-108); Estimated CRCL calculation 61 ml/min; Estimated Glomerular Filt Rate 60; Glucose 140 mg/dL (70-99); Lactic Acid Reflex 1.6 mmol/L (0.4-2.0); Lipase 19 U/L (16-77); Osmolality Calculated 299 mOsm/kg (285-295); Potassium 4.1 mmol/L (3.5-5.1); Sodium 142 mmol/L (136-145); Total Protein 6.8 g/dL (6.4-8.2); Troponin I 6.9 ng/L (0.00-60.4)
[2024-02-22 20:04] VITALS: BP 141/69; PULSE 76; RESP 15; O2SAT 96
--- NOTE | 2024-02-22 20:04 | PC.NURSE ---
patient medicated per NOV. Now laying on her left side. call light in reach
--- NOTE | 2024-02-22 20:28 | PC.NURSE ---
patient reports that she is feeling better. no longer has indigestion. ER provider notified
[2024-02-22 20:31] VITALS: BP 123/56; PULSE 86; RESP 20; O2SAT 96
== END 2024-02-22 20:49 | disposition home or self-care (01) ==
PROVIDERS: Emergency Provider Family Medicine
DX: K21.9 Gastro-esophageal reflux disease without esophagitis (principal); Z79.899 Other long term (current) drug therapy; Z79.1 Long term (current) use of non-steroidal anti-inflammatories (NSAID)
CPT/HCPCS: 36415; 80053; 83605; 83690; 84484; 85025; 93005; 96361; 96374; 96375; 99284; A9270; C9113; J1885; J2405; J7030

== ENCOUNTER 2024-05-15 14:24 | Outpatient (CLI) | payer MEDICARE, SELFPAY ==
--- NOTE | ~2024-05-15 | DEXA_ITS ---
Bone Density Report Name: JUAN MIGUEL MALDONADO Age: 68 Sex: Female Ethnicity: White Date of : 1955 Indication: postmenopausal; screening for osteoporosis; height loss; Referring Provider: UNKNOWN, UNKNOWN Study: Bone densitometry was performed. Exam Date: May 15, 2024 Accession number: [id number] Bone Density: Region BMD T-score Z-score Classification AP Spine(L1-L4) 1.212 1.5 3.5 Normal Femoral Neck (Right) 0.716 -1.2 0.5 Osteopenia Total Hip (Right) 0.817 -1.0 0.4 Normal World Health Organization criteria for BMD impression classify patients as: Normal (T-score at or above -1.0), Osteopenia (T-score between -1.0 and -2.5), or Osteoporosis (T-score at or below -2.5). 10-year Fracture Risk(1): Major Osteoporotic Fracture 8.5% Hip Fracture 0.9% Reported Risk Factors: [place] (), Neck BMD=0.716, BMI=33.6 (1) FRAX(R) Version 3.08. Fracture probability calculated for an untreated patient. Fracture probability may be lower if the patient has received treatment. Clinical Information Provided by Patient: Patient maximum height was 69 Menopause Age: 47 No regular weight bearing exercise Does not regularly consume dairy products Drinks caffeinated beverages Onset of menses at age 12 Number of children 2 Impression: The patient has low bone mass, based on the Right Femoral Neck T-score. The patient has an estimated ten-year risk of hip fracture of 0.9% and an estimated ten-year risk of major fracture of 8.5%, based on the WHO FRAX algorithm. Discussion: BONE DENSITY IS LOW AT ONE OR MORE SKELETAL SITES. This patient's lowest T-score is low at one or more skeletal sites. It meets the World Health Organization's (WHO) criteria for ?low bone mass? (T-score between -1.0 and -2.5). The patient's 10-year risk of fracture as calculated by FRAX is less than the threshold where pharmacological therapy is recommended by the National Osteoporosis Foundation (NOF). However, all treatment decisions require clinical judgment and consideration of individual patient factors, including patient preferences, comorbidities, previous drug use, risk factors not captured in the FRAX model (e.g., frailty, falls, vitamin D deficiency, increased bone turnover, interval significant decline in bone density) and possible under or overestimation of fracture risk by FRAX. The patient should follow a healthful lifestyle (good nutrition with adequate calcium and vitamin D, and appropriate weight-bearing exercise). Follow-Up: Consider repeating this study in 2 to 3 years to reassess this patient's status, or sooner if there is some new clinical indication. Reported by: Dr. Jas Henderson on 05/15/2024 2:51:00 PM. Reviewed, dictated and finalized at location A. [facility]
== END 2024-05-15 14:25 | disposition home or self-care (01) ==
DX: Z78.0 Asymptomatic menopausal state (principal); M85.88 Other specified disorders of bone density and structure, other site
CPT/HCPCS: 77080

== ENCOUNTER 2024-05-23 19:20 | Emergency (ER) | payer MEDICARE, SELFPAY ==
--- NOTE | ~2024-05-23 | XR_ITS ---
XR hip RT min 3V w AP pelvis Ordering provider: Yifan Allen MD History: . Right hip pain after sudden twist . Comparison: None. FINDINGS: BONES: No acute fracture or dislocation. HIP JOINT SPACES: Left hip arthroplasty. Right hip severe osteoarthritic changes. SACROILIAC JOINT SPACES/LUMBAR SPINE: The sacroiliac joint spaces are normal. Mild degenerative dietrich es of the visualized lower lumbar spine. Levoscoliosis. PUBIC SYMPHYSIS: Normal. SOFT TISSUES: Normal. IMPRESSION: No acute osseous abnormality pelvis and right hip. Reviewed, dictated and finalized at location A.
[2024-05-23 19:24] VITALS: BP 126/68; PULSE 81; RESP 18; TEMP 36.2; O2SAT 95
--- NOTE | 2024-05-23 19:57 | ED.EXTPRO ---
HPI - Extremity Problem General Chief complaint: Extremity Problem,Nontraumatic Stated complaint: hip pain Time Seen by Provider: 05/23/24 19:26 Source: patient Mode of arrival: ambulatory Limitations: no limitations History of Present Illness HPI Narrative: 68 years old white female came to the ED complaining of right hip pain which been going for over E. patient is status post left hip replacement September 2021. Patient been favoring right hip since, 1 leg shorter than the other, limping during walking, has been on hydrocodone 10 mg for over 1 year for chronic right hip pain. Yesterday patient twisted her right hip while standing and tried to turn, triggered more pain. She denies any specific trauma. Fever, chills, nausea, vomiting, radiation of pain. Pain worse with certain movement and certain position, better laying still. Patient did not see her orthopedic for the last 2 years Patient currently on meloxicam 50 mg once a day and hydrocodone 10 mg as needed Related Data Home Medications Medication Instructions Recorded Confirmed bupropion HCl 150 mg 24 hr tablet, 1 tablet PO DAILY 03/22/22 02/22/24 extended release duloxetine 30 mg capsule,delayed 1 cap PO DAILY 03/22/22 02/22/24 release meloxicam 15 mg tablet 1 tablet PO DAILY 03/22/22 02/22/24 risperidone 0.5 mg tablet 1 tablet PO DAILY 03/22/22 02/22/24 rosuvastatin 20 mg tablet 1 tablet PO DAILY 03/22/22 02/22/24 trazodone 150 mg tablet 1 tablet PO HS 03/22/22 02/22/24 Allergies Allergy/AdvReac Type Severity Reaction Status Date / Time Sulfa (Sulfonamide Allergy Unknown Verified 03/22/22 10:21 Antibiotics) Review of Systems Review of Systems: All systems reviewed & are unremarkable except as noted in HPI and below PMFSH Past Medical History Medical History Adrenal mass, right Depression Diverticulosis Hiatal hernia Social History Social History Smoking status: Never smoker Exam Narrative: General appearance: Well-developed, well-nourished Skin: Normal color Chest and respiratory: Airway patent, no respiratory distress, no accessory muscle use Heart: Regular rate/rhythm Abdomen: Soft, nontender, no organomegaly, quiet bowel sounds Vascular: Normal peripheral pulses, normal capillary refill. Musculoskeletal: moderate pain right groin area, worse with hip movement, no bruises, no swelling, no rash, no mass, no lymphadenopathy Neurologic: Alert and oriented ?3, [employer] RECEPTIONIST is normal as tested, no gross motor deficit Course Vital Signs Vital signs: Vital Signs Temperature 36.2 C L 05/23/24 19:24 Pulse Rate 81 05/23/24 19:24 Respiratory Rate 18 05/23/24 19:24 Blood Pressure 126/68 05/23/24 19:24 Pulse Oximetry 95 05/23/24 19:24 Oxygen Delivery Room Air 05/23/24 19:24 Temperature 36.2 C L 05/23/24 19:24 Pulse Rate 81 05/23/24 19:24 Respiratory Rate 18 05/23/24 19:24 Blood Pressure 126/68 05/23/24 19:24 Pulse Oximetry 95 05/23/24 19:24 Oxygen Delivery Room Air 05/23/24 19:24 MDM - Extremity (Nontraumatic) Differential Diagnosis Differential diagnosis: Likely other ( progression of arthritis, strain, sprain, less likely fracture) Imaging Data Radiologist's impression: Impressions Hip/Pelvis X-Ray 05/23/24 20:03 IMPRESSION: No acute osseous abnormality pelvis and right hip. Critical Care Time Critical Care Time Critical Care Time: No Discharge Plan Discharge Clinical Impression: Chronic pain of right hip Patient Disposition: Home, Self-Care Condition: Stable Instru
[2024-05-23] MEDS: HYDROmorphone HCL INJ (*CRX) 2 MG/ML VIAL 1 MG IM (20:21)
[2024-05-23] MEDS: ONDANSETRON HCL ODT 4 MG TABLET PO (20:24)
[2024-05-23] MEDS: IBUPROFEN 600 MG TABLET PO (20:24)
== END 2024-05-23 20:32 | disposition home or self-care (01) ==
PROVIDERS: Emergency Provider Emergency Medicine
DX: M25.551 Pain in right hip (principal); Z79.891 Long term (current) use of opiate analgesic
CPT/HCPCS: 73502; 96372; 99283; A9270; J1170

== ENCOUNTER 2024-08-19 14:46 | Outpatient (RCR) | payer MEDICARE, SELFPAY ==
--- NOTE | 2024-08-19 16:20 | OPREHPOC ---
Outpatient Therapy Plan of Care This is a Multidisciplinary Plan of Care that may contain components documented by all disciplines (PT, OT, and ST.) PT Problem 1 PT Problem #1 Knowledge Deficit PT Goal 1 Goal / Goal Update The patient will be independent in a home exercise program. Target Visit 4 PT Problem 2 PT Problem #2 Pain PT Goal 1 Goal / Goal Update The patient will report no greater than 5/10 right hip pain with standing for 10 minutes. Target Visit 10 PT Problem 3 PT Problem #3 Impaired Functional Mobility PT Goal 1 Goal / Goal Update 1. The patient will demonstrate 40% or less self perceived disability per the LEFS questionnaire. 2. The patient will ambulate 800 feet during the 6 minute walk test to improve community ambulation. Target Visit 10 PT Problem 4 PT Problem #4 Impaired Range of Motion PT Goal 1 Goal / Goal Update 1. The patient will demonstrate 90 of right hip flexion AROM to improve transfers. Target Visit 10
--- NOTE | 2024-08-19 16:20 | PTOPEVAL1 ---
Assessment and note entered by Marti Mendez, PT Evaluation Information Assessment Status Evaluation ICD-10 Condition Codes (PT) Pain in right hip M25.551,Aftercare following joint replacement surgery Z47.1 Onset 08/11/24 Subjective Information Kymberly Osullivan reports she had her right hip replaced on 08/11/24. She had surgery secondary to osteoarthritis. She did not have to stay in the hospital. She has been using a walker for ambulation since surgery. She lives with her adult son who helps with cooking, cleaning, and getting groceries. She is able to perform bathing, grooming, and toileting independently. She drove today for the first time. She does note she has to help lift the left leg into the vehicle. She also feels limited with standing to 5 minutes or less. She has pain in the right hip down to the knee along the outside and into the groin. She has not been able to sleep in bed because she can not get her right leg into the bed. Reported Pain Level Pain Score 10: Self Report Assessment PT Clinical Summary Kymberly Osullivan presents 8 days s/p right RICH. 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 She objectively demonstrates impaired gait, decreased balance, decreased right hip AROM, decreased right hip and knee strength, and decreased functional mobility. She is unable to actively flex the right hip and requires moderate assist to transfer sit to/from supine. She is currently a high fall risk. She will benefit from skilled PT to address these limitations. Plan of Care Interventions Electrical Stimulation,Gait Training,Hot Pack/Cold Pack,Neuro Re-education,Patient/Caregiver Education,Therapeutic Activities,Therapeutic Exercise PT Services Indicated Yes Treatment Frequency and 2 times a week for 10 visits Duration These treatments will address the objective and functional deficits as defined above. The patient will be advanced safely and appropriately in order for the patient to progress towards his/her prior level of function. Additional exercises will be introduced and as well as a comprehensive home exercise program upon discharge, if needed, ?to ensure carryover of functional gains achieved in the clinic. This treatment plan has been reviewed and agreement upon by the patient.
--- NOTE | 2024-10-01 14:59 | OPREHPOC ---
Outpatient Therapy Plan of Care This is a Multidisciplinary Plan of Care that may contain components documented by all disciplines (PT, OT, and ST.) PT Problem 1 PT Problem #1 Knowledge Deficit PT Goal 1 Goal / Goal Update The patient will be independent in a home exercise program. Target Visit 4 Progress Met PT Problem 2 PT Problem #2 Pain PT Goal 1 Goal / Goal Update The patient will report no greater than 5/10 right hip pain with standing for 10 minutes. Target Visit 18 Progress Not Met PT Goal 2 Goal / Goal Update Continue PT Problem 3 PT Problem #3 Impaired Functional Mobility PT Goal 1 Goal / Goal Update 1. The patient will demonstrate 40% or less self perceived disability per the LEFS questionnaire. 2. The patient will ambulate 800 feet during the 6 minute walk test to improve community ambulation. Target Visit 18 Progress Not Met PT Goal 2 Goal / Goal Update Continue PT Problem 4 PT Problem #4 Impaired Range of Motion PT Goal 1 Goal / Goal Update 1. The patient will demonstrate 90 of right hip flexion AROM to improve transfers. Target Visit 10 Progress Met
--- NOTE | 2024-10-01 15:01 | PTOPPROG ---
Assessment and note entered by JT File, PT Evaluation Information Assessment Status Progress ICD-10 Condition Codes (PT) Pain in right hip M25.551,Aftercare following joint replacement surgery Z47.1 Onset 08/11/24 Subjective Information Mrs. Osullivan feels like she's improved her walking and now ambulates without AD. She experiences the most difficulty with getting out of her recliner at home, as well as some difficulty getting in and out of her car due to having to lift her leg to get in. She is now able to sleep in bed. Assessment PT Clinical Summary Mrs. Osullivan has attended 10 skilled PT visits for aftercare following R RICH on 08/11/24. She has made improvements in ROM and strength but continues to demonstrate significant hip flexor weakness and reduced functional capacity. She will benefit from continued skilled PT treatment to address these deficits to be able to perform all functional tasks without pain. Plan of Care Interventions Electrical Stimulation,Gait Training,Hot Pack/Cold Pack,Neuro Re-education,Patient/Caregiver Education,Therapeutic Activities,Therapeutic Exercise PT Services Indicated Yes Treatment Frequency and 2x/week for 8 more visits Duration These treatments will address the objective and functional deficits as defined above. The patient will be advanced safely and appropriately in order for the patient to progress towards his/her prior level of function. Additional exercises will be introduced and as well as a comprehensive home exercise program upon discharge, if needed, ?to ensure carryover of functional gains achieved in the clinic. This treatment plan has been reviewed and agreement upon by the patient.
--- NOTE | 2024-11-05 15:29 | OPREHPOC ---
Outpatient Therapy Plan of Care This is a Multidisciplinary Plan of Care that may contain components documented by all disciplines (PT, OT, and ST.) PT Problem 1 PT Problem #1 Knowledge Deficit PT Goal 1 Goal / Goal Update The patient will be independent in a home exercise program. Target Visit 4 Progress Met PT Goal 2 Progress Met PT Problem 2 PT Problem #2 Pain PT Goal 1 Goal / Goal Update The patient will report no greater than 5/10 right hip pain with standing for 10 minutes. Target Visit 18 Progress Not Met PT Goal 2 Goal / Goal Update Continue Progress Met PT Problem 3 PT Problem #3 Impaired Functional Mobility PT Goal 1 Goal / Goal Update 1. The patient will demonstrate 40% or less self perceived disability per the LEFS questionnaire. 2. The patient will ambulate 800 feet during the 6 minute walk test to improve community ambulation. Target Visit 18 Progress Partially Met PT Goal 2 Goal / Goal Update progress towards Progress Partially Met PT Problem 4 PT Problem #4 Impaired Range of Motion PT Goal 1 Goal / Goal Update 1. The patient will demonstrate 90 of right hip flexion AROM to improve transfers. Target Visit 10 Progress Met PT Goal 2 Goal / Goal Update progress towards Progress Not Met
--- NOTE | 2024-11-05 15:29 | PTOPDC ---
Assessment and note entered by Marti Mendez, PT Evaluation Information Assessment Status Discharge Diagnosis s/p R RICH ICD-10 Condition Codes (PT) Pain in right hip M25.551,Aftercare following joint replacement surgery Z47.1 Onset 08/11/24 Subjective Information Kymberly Osullivan reports her right hip is doing well overall. She is able to get around in her home, go up and down 2-3 stairs, and walk short distances without difficulty. She does still have stiffness in her right hip after sittting for a long period or first thing in the morning. Reported Pain Level Pain Score 0,0: Self Report Assessment PT Clinical Summary Kymberly Osullivan has completed 18 skilled PT visits following a right RICH performed on 08/11/24. She is reporting no pain in the right hip most of the time and she is able to ambulate in her home and short distances without a cane now. She is also driving and going up and down stairs. She objectively demonstrates improved right hip ROM, improved right hip strength, improved gait, and improved balance. She is independent in a home exercise program to continue right hip strengthening. She will be discharged to her [facility]. Plan of Care PT Services Indicated No
== END 2024-11-05 15:53 | disposition home or self-care (01) ==
LOC: CHSPT 14:46
DX: M25.551 Pain in right hip (principal); Z47.1 Aftercare following joint replacement surgery
CPT/HCPCS: 97110; 97161; 97530; 97750

== ENCOUNTER 2024-11-07 14:02 | Outpatient (RCR) | payer MEDICARE, SELFPAY ==
--- NOTE | 2024-11-17 14:04 | PCPTNOTE ---
Cancelled session due to illness.
--- NOTE | 2024-11-20 17:57 | OPREHPOC ---
Outpatient Therapy Plan of Care This is a Multidisciplinary Plan of Care that may contain components documented by all disciplines (PT, OT, and ST.) PT Problem 1 PT Problem #1 Knowledge Deficit PT Goal 1 Goal / Goal Update 1. independent and compliant with HEP Target Visit 4 PT Problem 2 PT Problem #2 Pain PT Goal 1 Goal / Goal Update 1. decrease pain at worst to 3/10 or less in the bilateral shoulders Target Visit 8 PT Problem 3 PT Problem #3 Impaired Range of Motion PT Goal 1 Goal / Goal Update 1. 145 degrees or better active bilateral shoulder flexion 2. 65 degrees or better active bilateral shoulder IR 3. 80 degrees or better active bilateral shoulder ER Target Visit 8 PT Problem 4 PT Problem #4 Impaired Strength PT Goal 1 Goal / Goal Update 1. 4+/5 or better overall shoulder strength Target Visit 8 PT Problem 5 PT Problem #5 Impaired Functional Mobility PT Goal 1 Goal / Goal Update 1. 25% or less deficits per the quick dash 2. patient to lift 5lb weight overhead to tall shelf with bilateral UE's Target Visit 8
--- NOTE | 2024-11-20 17:57 | PTOPEVAL1 ---
Assessment and note entered by JT File, PT Evaluation Information Assessment Status Evaluation ICD-10 Condition Codes (PT) Pain in right shoulder M25.511,Pain in left shoulder M25.512 Onset 10/14/24 Subjective Information patient reports both of her shoulders have been bothering her for a few months. she reports no injury. 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 she reports she has increased pain in the bilateral shoulders with taking off her clothes. she reports it also hurts to reach and grab items from tables at home. Assessment PT Clinical Summary mrs. salamanca presents to skilled PT services for evaluation of her bilateral shoulder pain. she presents today with deficits in bilateral shoulder rom, shoulder strength, and functional use of the UE's due to pain in the shoulders. she displays signs and symptoms consistent with RTC tendonitis and secondary impingement. she would benefit from continued skilled PT to address her objective/ functional deficits and return to her prior level functional activity performance/quality of life. ` Plan of Care Interventions Electrical Stimulation,Hot Pack/Cold Pack,Manual Therapy,Neuro Re-education,Patient/Caregiver Education,Therapeutic Activities,Therapeutic Exercise PT Services Indicated Yes Treatment Frequency and 2x weekly for 8 visits Duration These treatments will address the objective and functional deficits as defined above. The patient will be advanced safely and appropriately in order for the patient to progress towards his/her prior level of function. Additional exercises will be introduced and as well as a comprehensive home exercise program upon discharge, if needed, ?to ensure carryover of functional gains achieved in the clinic. This treatment plan has been reviewed and agreement upon by the patient.
--- NOTE | 2024-11-28 15:03 | OPREHPOC ---
Outpatient Therapy Plan of Care This is a Multidisciplinary Plan of Care that may contain components documented by all disciplines (PT, OT, and ST.) PT Problem 1 PT Problem #1 Knowledge Deficit PT Goal 1 Goal / Goal Update 1. independent and compliant with HEP Target Visit 4 Progress Met PT Problem 2 PT Problem #2 Pain PT Goal 1 Goal / Goal Update 1. decrease pain at worst to 3/10 or less in the bilateral shoulders Target Visit 12 Progress Not Met PT Problem 3 PT Problem #3 Impaired Range of Motion PT Goal 1 Goal / Goal Update 1. 145 degrees or better active bilateral shoulder flexion 2. 65 degrees or better active bilateral shoulder IR. met 3. 80 degrees or better active bilateral shoulder ER Target Visit 12 Progress Partially Met PT Problem 4 PT Problem #4 Impaired Strength PT Goal 1 Goal / Goal Update 1. 4+/5 or better overall shoulder strength Target Visit 12 Progress Not Met PT Problem 5 PT Problem #5 Impaired Functional Mobility PT Goal 1 Goal / Goal Update 1. 25% or less deficits per the quick dash 2. patient to lift 5lb weight overhead to tall shelf with bilateral UE's Target Visit 12 Progress Not Met
--- NOTE | 2024-11-28 15:03 | PTOPREEVAL ---
Assessment and note entered by JT File, PT Evaluation Information Assessment Status Re-evaluation ICD-10 Condition Codes (PT) Pain in right shoulder M25.511,Pain in left shoulder M25.512 Onset 10/14/24 Subjective Information patient reports she is hurting more today in both her shoulders. she reports she really struggles to get dressed and perform activities like cleaning around her house. she reports her shoulder are a little better since starting PT. Reported Pain Level Pain Score 5,5: Self Report Assessment PT Clinical Summary mrs. salamanca presents to skilled PT for her 6th skilled PT visit for the bilateral shoulders. she continues to have pain and deficits in functional activities like getting dressed and caring for the house. she does display some improvement in bilateral shoulder arom and passive rom. however, she still lacks achievement of goals in pain, rom, strength, and function. continued skilled PT is indicated to further improved patients objective/ functional deficits and achieve her remaining goals to improve her quality of life and functional activity performance. Plan of Care Interventions Electrical Stimulation,Hot Pack/Cold Pack,Manual Therapy,Neuro Re-education,Patient/Caregiver Education,Therapeutic Activities,Therapeutic Exercise PT Services Indicated Yes Treatment Frequency and continue skilled PT 2x weekly for 6 more visits Duration These treatments will address the objective and functional deficits as defined above. The patient will be advanced safely and appropriately in order for the patient to progress towards his/her prior level of function. Additional exercises will be introduced and as well as a comprehensive home exercise program upon discharge, if needed, ?to ensure carryover of functional gains achieved in the clinic. This treatment plan has been reviewed and agreement upon by the patient.
--- NOTE | 2024-12-23 13:51 | OPREHPOC ---
Outpatient Therapy Plan of Care This is a Multidisciplinary Plan of Care that may contain components documented by all disciplines (PT, OT, and ST.) PT Problem 1 PT Problem #1 Knowledge Deficit PT Goal 1 Goal / Goal Update 1. independent and compliant with HEP Target Visit 4 Progress Met PT Problem 2 PT Problem #2 Pain PT Goal 1 Goal / Goal Update 1. decrease pain at worst to 3/10 or less in the bilateral shoulders Target Visit 12 Progress Not Met PT Problem 3 PT Problem #3 Impaired Range of Motion PT Goal 1 Goal / Goal Update 1. 145 degrees or better active bilateral shoulder flexion. met 2. 65 degrees or better active bilateral shoulder IR. met 3. 80 degrees or better active bilateral shoulder ER Target Visit 12 Progress Partially Met PT Problem 4 PT Problem #4 Impaired Strength PT Goal 1 Goal / Goal Update 1. 4+/5 or better overall shoulder strength Target Visit 12 Progress Not Met PT Problem 5 PT Problem #5 Impaired Functional Mobility PT Goal 1 Goal / Goal Update 1. 25% or less deficits per the quick dash. met 2. patient to lift 5lb weight overhead to tall shelf with bilateral UE's. met for L Target Visit 12 Progress Partially Met
--- NOTE | 2024-12-23 13:51 | PTOPDC ---
Assessment and note entered by JT File, PT Evaluation Information Assessment Status Discharge ICD-10 Condition Codes (PT) Pain in right shoulder M25.511,Pain in left shoulder M25.512 Onset 10/14/24 Subjective Information patient reports she feels Better since starting PT. she reports the R shoulder does not hurt at all today, and she only has a little pain in the L shoulder. she reports she is doing her cane exercises at home. she reports she is ready to take a break from skilled PT for a while. Reported Pain Level Pain Score 3,1: Self Report Assessment PT Clinical Summary mrs. salamanca presents to skilled PT services today for her 12th skilled PT visit. she displays improved active and passive rom of the selma shoulders today. she has met HEP goal, and made partial progress on other goals in skilled PT thus far. despite her continued deficits in rom and strength, as well as functional lifting ability of the bilateral shoulders, she would like to DC therapy to an independent HEP today. Plan of Care PT Services Indicated Yes
== END 2024-12-23 20:00 | disposition home or self-care (01) ==
LOC: CHSPT 14:02
DX: M25.511 Pain in right shoulder (principal); M25.512 Pain in left shoulder
CPT/HCPCS: 97014; 97110; 97112; 97140; 97150; 97161; G0283

== ENCOUNTER 2024-12-08 07:10 | Outpatient (CLI) | payer MEDICARE, SELFPAY ==
--- OUTSIDE RECORDS SUMMARY | 2024-12-08 07:17 | XMS_ITS | Clinical Summary ---
Author Organization [facility] Address [address] [place] [address] Care Team Providers Care Radiographic Technologist Name Role Phone Clem Suggs MD Unavailable [phone] Valentín Mandel MD Primary Care Provi desiree Allergies Active Allergy Reactions Criticality Noted Date Comments Cephalexin Anaphylaxis High 03/27/2024 Penicillins Anaphylaxis High 03/27/2024 Sulfa Anaphylaxis High 05/29/2024 Medications multivitamin capsule Take 1 capsule by mouth daily Active aspirin 81 mg enteric coated tablet Take 1 tablet (81 mg total) by mouth daily Active ARIPiprazole (ABILIFY) 5 mg tabletIndicatio ns:Bipolar Disorder TAKE 1 TABLET (5 MG TOTAL) BY MOUTH DAILY. 90 tablet 3 4 Active rosuvastatin (CRESTOR) 20 mg tablet TAKE 1 TABLET BY MOUTH EVERY DAY 90 tablet 3 4 Active celecoxib (CeleBREX) 200 mg capsuleIndicati ons:Osteoarthri tis Take 1 capsule (200 mg total) by mouth daily 90 capsule 3 5 Active buPROPion XL (WELLBUTRIN XL) 150 mg 24 hr tablet Take 1 tablet (150 mg total) by mouth every morning 90 tablet 3 5 10/13/19 26 Active oxyBUTYnin (DITROPAN) 5 mg tablet Take 1 tablet (5 mg total) by mouth 2 (two) times a day 30 tablet 5 10/30/19 26 Active solifenacin (VESIcare) 5 mg tablet Take 1 tablet (5 mg total) by mouth daily 30 tablet 5 5 11/11/19 26 Active oxyCODONE-aceta minophen (PERCOCET) 10-325 mg per tabletIndicatio ns:Pain Take 1 tablet by mouth every 6 (six) hours as needed for pain 78 tablet 5 Active oxyCODONE-aceta minophen (PERCOCET) 10-325 mg per tabletIndicatio ns:Pain Take 1 tablet by mouth every 6 (six) hours as needed for pain 78 tablet 5 11/28/19 25 Discontinu ed(Reorder ) Active Problems Problem Noted Date Diagnosed Date Cigarette nicotine dependence in remission 08/03 Chronic bilateral low back pain without sciatica 08/03/2021 Bipolar depression 08/03/2021 Panlobular emphysema 05/25/2021 Calcification of abdominal aorta 01/31/2021 Overview (08/16/2021): Noted on lumbar x-ray 09/16/20 Carotid atherosclerosis 01/31/2021 Overview (08/16/2021): Noted on CT 06/20/13 Alcoholism 01/06/2015 Insomnia 01/06/2015 Chronic GERD 02/12/2013 Essential familial hypercholesterolemia 02/13/20 13 Peripheral retinal edema 02/12/2013 Resolved Problems Problem Noted Date Diagnosed Date Resolved Date Primary osteoarthritis of right hip 06/23/2024 09/11/2024 Primary osteoarthritis of right hip 11/01/2023 09/11/2024 It band syndrome, left 11/23/202207/03 Aftercare following left hip joint replacement surgery 10/20/2022 07/03/2023 Primary osteoarthritis of left hip 09/12/2022 10/20/2022 Trochanteric bursitis, left hip 02/14/2022 09/11/2024 Palpitations 10/26/2021 07/03/2023 Precordial pain 09/14/2021 10/11/2021 Family history of coronary arteriosclerosis 09/14/2021 10/11/2021 Smoker 09/14/2021 10/11/2021 Tinnitus 07/22/2021 08/16/2021 KOROMA (dyspnea on exertion) 02/04/2021 Depression, major 2015 08/16/2021 Impaired fasting glucose 01/06/201503/2021 Sciatica 10/22/2013 08/16/2021 Arthralgia of left shoulder region 07/11/2013 10/11/2021 Generalized osteoarthritis 02/12/2013 1 10/17/2020 De Quervain's tenosynovitis 11/22/2012 10/11/2021 Ganglion 11/22/2012 08/16/2021 Encounters Date Type Department Care Team Description 12/02/2024 Telephone [facility] Family Medicine [address] [place] [address] Valentín Mandel MD Additional Services Or Orders 11/10/2024 Nurse Triage [facility] [address] [place] [address] Valentín Mandel MD 10/28/2024 Telephone [facility] [address] [place] [address] Valentín Mandel MD Med Refill 10/26/2024 Results Follow-Up [facility] [address] [place] [address] Valentín Mandel MD Encounter for colorectal cancer screening (Primary Dx) 10/13/2024 Patient Message [facility] [address] [place] [address] Valentín Mandel MD Tremors in left arm 10/12/2024 Patient Message [facility] [address] [place] [address] Valentín Mandel MD Arms 10/10/2024 3:25 PM UPWARD BOUND DIRECTOR Ancillary Procedure [facility] Imaging at [address] [phone] Chronic pain of both shoulders 10/10/2024 3:00 PM UPWARD BOUND DIRECTOR Office Visit [facility] at [address] [phone] Megan Yañez NP Chronic pain of both shoulders (Primary Dx) 10/10/2024 Nurse Triage [facility] [address] [place] [address] Valentín Mandel MD 09/17/2024 Telephone [facility] [address] [place] [phone] Valentín Mandel MD Medical Question/Miscellan eous 09/11/2024 11:15 AM UPWARD BOUND DIRECTOR Telemedicine [facility] [address] [place] [address] Valentín Mandel MD Bipolar depression (HCC) (Primary Dx); History of right hip replacement 09/11/2024 Telephone [facility] [address] [place] [phone] Valentín Mandel MD 09/09/2024 Orders Only [facility] [address] [place] [phone] Valentín Mandel MD from Last 3 Months Immunizations Immunization Administration Dates Next Due Influenza, Quad, Adjuvantate d, Intramuscular 05/29/2024(Deferred: Patient Refused),08/22/2023(Deferred: Patient Refused),11/08/2022(Deferred: Patient Refused),10/11/2022(Deferred: Patient Refused),10/11/2022(Deferred: Patient Refused) Influenza, Quadrivalent, Hig h Dose, Preservative Free, Intrr 05/29/2024(Deferred: Patient Refused),07/03/2023,06/22/2021 Influenza, Quadrivalent, Rec ombinant, Egg Free, Preservative Free, Intramuscular 05/25/2020,06/23/2019 Influenza, Quadrivalent, Spl it, Preservative Free, Intramuscular 06/14/2022,07/19/2015 Influenza, Trivalent, High D ose, Split, Preservative Free, Intramuscular 07/14/2024 Influenza, Unspecified 05/29/2024(Deferr ed: Patient Refused),11/14/2023(Deferred: Patient Refused),11/11/2023(Deferred: Patient decision),11/11/2023(Deferred: Patient Refused),11/10/2022(Deferred: Patient Refused),06/22/2021,06/04/2018, 017,10/03/2016,07/21/2015,07/19/2015,1 09/10/2012,09/30/2012 Pfizer SARS-CoV-2 Monovalent Vaccination (12+ Yrs) PURPLE 06/22/2021,11/12/2020,10/12/2020 Pneumococcal Conjugate PCV 13 05/25/2020 Pneumococcal Polysaccharide PPV23 05/28/2015 Sars-CoV-2, Unspecified 06/22/2021 ZOSTER Recombinant 07/12/2022,01/24/2022 Surgical History Surgery Date Site/Laterality Comments SPINE SURGERY HIP SURGERY 10/09/2021 Left replaced - Dr. Suggs Medical History Medical History Date Comments Arthritis Emphysema of lung (HCC) Hypercholesteremia Depression Family History Medical History Relation Name Comments No Known Problems Brother 1 Alcohol abuse Father Heart disease Father Hypertension Father Breast cancer Maternal Grandmother Gout Mother Heart disease Mother Hypertension Mother No Known Problems Other 2 children No Known Problems Sister 1 No Known Problems Sister 2 Relation Name Status Comments Brother 1 Alive Brother 2 Sucide Father Maternal Grandmother Mother Other 2 children Alive Sister 1 Alive Sister 2 Alive Social History Tobacco Use Types Packs/Day Years Used Date Smoking Tobacco: Former Cigarettes 1 45 0 09/25/1976 - 09/25/2021 Smokeless Tobacco: Never Tobacco Cessation:Counseling Given: Not Answered Alcohol Use Standard Drinks/Week Comments Yes 0 (1 standard drink = 0.6 oz pur e alcohol) OASIS D0700: Social Isolation Answer Da te Recorded Frequency of experiencing loneliness or isolatio n Never 11/01/2022 OASIS A1250: Transportation Answer Date Recorded Lack of Transportation (Medical) No 11/01/2022 Lack of Transportation (Non-Medical) No 11/01/2022 Patient Unable or Declines to Respond No 11/01/2022 OASIS B1300: Health Literacy Answer Kranthi e Recorded Frequency of needing help to read materials from doctor or pharmacy Sometimes 11/01/2022 AUDIT-C Answer Date Recorded Q1: How often do you have a drink containing alc ohol? Monthly or less 10/09/2022 Q2: How many drinks containi ng alcohol do you have on a typical day when you are drinking? 1 or 2 10/09/2022 Q3: How often do you have si x or more drinks on one occasion? Never 10/09/2022 PHQ-2 Answer Date Recorded PHQ-2 Total Score (If total score is 3 or more points, staff should administer the PHQ-9) 1 12/07/2024 Personal Safety Answer Date Recorded Getting School Help Needed Denies 08/22 Comments No Sex and Gender Information Value Date Recorded Sex Assigned at Not on file Legal Sex Female 5:33 PM UPWARD BOUND DIRECTOR Gender Identity Female 09/11/2024 10:09 AM UPWARD BOUND DIRECTOR Sexual Orientation Straight 09/11/2024 10 :09 AM UPWARD BOUND DIRECTOR Obstetrics History Para Term AB IAB SAB Ectopic Multiple Livin g Live Births 2 2 2 Date Outcome GA Total Labor Labor/2nd/3rd Weight Sex Type Anes PTL Cathie A1 A5 Name Clin Term Term Last Filed Vital Signs Vital Sign Reading Time Taken Comments Blood Pressure 132/68 10/10/2024 3:06 PM UPWARD BOUND DIRECTOR Pulse 68 10/10/2024 3:06 PM UPWARD BOUND DIRECTOR Temperature 36.7 C (98 F) 10/10/2024 3:06 PM UPWARD BOUND DIRECTOR Respiratory Rate 20 10/10/2024 3:06 PM UPWARD BOUND DIRECTOR Oxygen Saturation 98% 10/10/2024 3:06 PM UPWARD BOUND DIRECTOR Inhaled Oxygen Concentration - - Weight 93.9 kg (207 lb) 10/10/2024 3:06 PM UPWARD BOUND DIRECTOR Height 165.1 cm (5' 5 ) 09/11/2024 11:19 AM UPWARD BOUND DIRECTOR Body Mass Index 34.45 09/11/2024 11:19 AM UPWARD BOUND DIRECTOR Plan of Treatment Health Maintenance Due Date Last Done Comments Hepatitis C Screening 1955 DTaP/Tdap/Td Vaccine (1 - Tdap) 1966 Hepatitis B Screening 1973 Lung Cancer Screening 2005 Well Visit 65+ 07/03/2024 07/03/2023, 08/16/2021 Breast Cancer Screening-Mammogram 07/27/2024 07/27/2023, 07/27/2023, 12/26/2021, Additional history exists Covid-19 Vaccine ( season) 2025 08/07/2023, 07/11/2022, 01/24/2022, Additional history exists Postponed from 05/11/2024 (Patient declined, but will receive in the future) Pneumococcal vaccine 65+ (3 of 3 - PCV20 or PCV21) 05/29/2025 05/25/2020, 05/28/2015 Postponed f rom 05/25/2025 (Patient declined, but will receive in the future) Depression Screening 07/14/2025 07/14/2024, 07/03/2023, 10/10/2021, Additional history exists Fall Risk Assessment 07/14/2025 07/14/2024, 07/03/2023, 10/11/2022, Additional history exists Osteoporosis Screening-Bone Density Scan 05/19/2026 05/19/2024, 12/26/2021 Colon Cancer Screening-DNA Stool 10/23/2027 10/23/2024, 08/01/2024, 08/12/2021, Additional history exists Zoster Vaccine Completed 07/12/2022, 01/24/2022 Influenza Vaccine Completed 07/14/2024, , 06/14/2022, Additional history exists Colon Cancer Screening-FIT Discontinued 10/23, 08/01/2024, 08/12/2021, Additional history exists Medical Devices Implanted Type Area Wildland Fire Fighter Device Identifier Shelf Expiration Date Model / Serial / Lot [employer] [place] 54mm 36mm Hip Neutral Liner Acetabular Altrx Sterile Latex Free [id number] - [id number] Implanted:Qty: 1 on 10/09/2022 by Clem Suggs MD at [facility] Left: Hip [employer] 08/09/2027 [id number] / / [id number] [employer] [place] 54mm Sector Hip Shell Acetabular Gription Sterile Latex Free [id number] - [id number] Implanted:Qty: 1 on 10/09/2022 by Clem Suggs MD at [facility] Left: Hip [employer] 07/10/2032 [id number] / / [id number] [employer] [place] 6.5mm 35mm Acetabular Cancellous Screw Bone Sterile 1217-35-500 - [id number] Implanted:Qty: 1 on 10/09/2022 by Clem Suggs MD at [facility] Left: Hip [employer] 04/09/2032 1217-35-500 / / [id number] [employer] Actis Collar Hip 7 High Offset Stem Femoral [id number] - [id number] Implanted:Qty: 1 on 10/09/2022 by Clem Suggs MD at [facility] Left: Hip [employer] 04/09/2032 [id number] / / [id number] [employer] Articul/Viet 36mm Cementless Hip +1.5mm 08/23 Taper Head Femoral Latex Free [id number] - [id number] Implanted:Qty: 1 on 10/09/2022 by Clem Suggs MD at [facility] Left: Hip [employer] 09/09/2027 [id number] / / [id number] Procedures Procedure Name Priority Date/Time Associated Diagnosis Comments STOOL DNA COLOGUARD Routine 10/23/2024 8:55 AM UPWARD BOUND DIRECTOR Colon cancer screening XR SHOULDER BILATERAL 2+ VIEWS Schedule GELACIO, Read GELACIO (Appt Today, Awaiting Results) 10/10/2024 3:30 PM UPWARD BOUND DIRECTOR Chronic pain of both shoulders DEXA AXIAL SKELETON BONE DENSITY 1 OR MORE SITES Schedule Routine, Read Routine (OP Routine) 05/19/2024 11:38 AM CDT Postmenopausal SCREENING MAMMOGRAM BILATERAL W JOE Schedule Routine, Read Routine (OP Routine) 07/27/2023 Breast cancer screening by mammogram from Last 3 Months or Most Recently Relevant to Health Maintenance Results * Stool DNA - Cologuard (10/23/2024 8:55 AM UPWARD BOUND DIRECTOR) Stool DNA - Cologuard Negative Negative [employer] (CLIA #:[id number]) Comment: NEGATIVE TEST RESULT. A negative Cologuard result indicates a low likelihood that a colorectal cancer (CRC) or advanced adenoma (adenomatous polyps with more advanced pre-malignant features) is present. The chance that a person with a negative Cologuard test has a colorectal cancer is less than 1 in 1500 (negative predictive value >99.9%) or has an advanced adenoma is less than 5.3% (negative predictive value 94.7%). These data are based on a prospective cross-sectional study of 10,000 individuals at average risk for colorectal cancer who were screened with both Cologuard and colonoscopy. (Diego Bauer al, N Engl J Med 2014;370(14):4420-3944) The normal value (reference range) for this assay is negative. COLOGUARD RE-SCREENING RECOMMENDATION: Periodic colorectal cancer screening is an important part of preventive healthcare for asymptomatic individuals at average risk for colorectal cancer. Following a negative Cologuard result, the [place] [employer] Society and U.S. Multi-Society Task Force screening guidelines recommend a Cologuard re-screening interval of 3 years. References: [place] [employer] Guideline for Colorectal Cancer Screening: https://www.cancer.org/cancer/afcsj-plzgnq-eilbfk/ijdpkisrw-adxkxftap-efskycp/ac s-rec ommendations.html.; Larry DK, Joshua CR, Tom JonesK, Colorectal Cancer Screening: Recommendations for Physicians and Patients from the U.S. Multi-Society Task Force on Colorectal Cancer Screening , Am J Gastroenterology 2017; 112:1507-4308. TEST DESCRIPTION: Composite algorithmic analysis of stool DNA-biomarkers with hemoglobin immunoassay. Quantitative values of individual biomarkers are not reportable and are not associated with individual biomarker result reference ranges. Cologuard is intended for colorectal cancer screening of adults of either sex, 45 years or older, who are at average-risk for colorectal cancer (CRC). Cologuard has been approved for use by the U.S. FDA. The performance of Cologuard was established in a cross sectional study of average-risk adults aged 50-84. Cologuard performance in patients ages 45 to 49 years was estimated by sub-group analysis of near-age groups. Colonoscopies performed for a positive result may find as the most clinically significant lesion: colorectal cancer [4.0%], advanced adenoma (including sessile serrated polyps greater than or equal to 1cm diameter) [20%] or non- advanced adenoma [31%]; or no colorectal neoplasia [45%]. These estimates are derived from a prospective cross-sectional screening study of 10,000 individuals at average risk for colorectal cancer who were screened with both Cologuard and colonoscopy. (Diego Bauer al, N Engl J Med 2014;370(14):2705-0821.) Cologuard may produce a false negative or false positive result (no colorectal cancer or precancerous polyp present at colonoscopy follow up). A negative Cologuard test result does not guarantee the absence of CRC or advanced adenoma (pre-cancer). The current Cologuard screening interval is every 3 years. ([place] [employer] Society and U.S. Multi-Society Task Force). Cologuard performance data in a 10,000 patient pivotal study using colonoscopy as the reference method can be accessed at the following location: www.FibeRio.NanoCompound/results. Additional description of the Cologuard test process, warnings and precautions can be found at www.FontselfogLagoonrd.com. Stool 10/23/2024 8:55 AM UPWARD BOUND DIRECTOR 11/20/2024 9:49 AM CDT Valentín Mandel MD LAB BODY FLUIDS AND STOOLS ORDERABLES Final Result [employer] (CLIA #:[id number]) [address] [place], [place] [address] * XR Shoulder Bilateral 2 or More Views (10/10/2024 3:30 PM UPWARD BOUND DIRECTOR) Anatomical Region Laterality Modality Upper Extremities, Shoulder Digi julee Radiography 10/10/2024 8:39 PM UPWARD BOUND DIRECTOR Narrative 10/10/2024 8:41 PM UPWARD BOUND DIRECTOR EXAM DESCRIPTION: XR SHOULDER BILATERAL 2+ VIEWS REASON FOR STUDY: Other (type) Pt complains of generalized bilateral shoulder pain for months. No known injury. No prior surgery to either shoulder. TECHNIQUE: Internal rotation, external rotation, and Y views of the right and left shoulder. COMPARISON: 03/02/2023 FINDINGS: BONES/JOINTS: No fracture, malalignment, or suspicious osseous lesion is identified. Mild glenohumeral and acromioclavicular joint osteoarthritis. Subacromial space and coracoclavicular distance appear normal. Visualized ribs and spine intact. SOFT TISSUES: Unremarkable. IMPRESSION: Mild glenohumeral and acromioclavicular joint osteoarthritis. Moderate C-spine facet hypertrophy incidentally noted. THIS IS AN ELECTRONICALLY VERIFIED FINAL REPORT 10/10/2024 8:41 PM - Electronically signed by Ross Barbosa M.D. AR T: Report ID: [id number] Reading Location: [id number] Procedure Note Ross Barbosa MD - 10/10/2024 EXAM DESCRIPTION: XR SHOULDER BILATERAL 2+ VIEWS REASON FOR STUDY: Other (type) Pt complains of generalized bilateral shoulder pain for months. No known injury. No prior surgery to either shoulder. TECHNIQUE: Internal rotation, external rotation, and Y views of theright and left shoulder. COMPARISON: 03/02/2023 FINDINGS: BONES/JOINTS: No fracture, malalignment, or suspicious osseous lesion is identified. Mild glenohumeral and acromioclavicular joint osteoarthritis. Subacromial space and coracoclavicular distance appear normal. Visualized ribs and spine intact. SOFT TISSUES: Unremarkable. IMPRESSION: Mild glenohumeral and acromioclavicular joint osteoarthritis. Moderate C-spine facet hypertrophy incidentally noted. THIS IS AN ELECTRONICALLY VERIFIED FINAL REPORT 10/10/2024 8:41 PM - Electronically signed by Ross Barbosa M.D. AR T: Report ID: [id number] Reading Location: [id number] Megan Yañez NP IMG XR PROCEDURES Final Result * Dexa Axial Skeleton Bone Density 1 Or 2 Site (05/19/2024 11:38 AM CDT) Anatomical Region Laterality Modality Body N/A Radiographic Krissy ging Valentín Mandel MD IM DXA PROCEDURES Final Result * Screening Mammogram Bilateral W Joe (07/27/2023) Anatomical Region Laterality Modality Breast Bilateral Mammography Valentín Mandel MD [facility] MAMMO PROCEDURE S Final Result from Last 3 Months or Most Recently Relevant to Health Maintenance Insurance [employer] MEDICARE [facility] Address: [place] [address] [employer] MEDICARE [facility] Address: [address] [address] [facility] MEDICARE [facility] Address: [address] [address] [place] [address] [facility] MED[facility] Address: [address] [address] [place] [address] Advance Directives For more information, please contact: [phone] * Full Code (Latest Code Status on File) Date Activated Date Inactivated Comments 10/09/2022 5:02 PM 10/11/2022 8:58 PM Care Teams Radiographic Technologist Relationship Specialty Start Date End Date Valentín Mandel MD [address] [place] [address] PCP - General Family Medicine 05/03/23 Clem Suggs MD [address] [place] [address] [address], [place] [address] Surgeon Orthopedic Surgery 10/10/22
--- OUTSIDE RECORDS SUMMARY | 2024-12-08 07:17 | XMS_ITS | Encounter Summary ---
Author Organization [facility] Address [address] [place] [address] Care Team Providers Care Product Safety And Standards Engineer Name Role Phone Valentín Mandel MD Primary Care Provider Encounter Details Date Type Department Care Team (Late Contact Info) Description 06/23/2024 [place] [address] Malinda Nicholson, [facility] [address] [facility] [place] [address] Visit Follow Up Social History Tobacco Use Types Packs/Day Years Used Date Smoking Tobacco: Former Cigarettes 1 42 0 01/16/1978 - 01/17/2020 Smokeless Tobacco: Never Alcohol Use Standard Drinks/Week Comments Yes 0 (1 standard drink = 0.6 oz pur e alcohol) occasional PHQ-2 Answer Date Recorded PHQ-2 Score - If the patient scores above 3, please move on to questions 3-9 2 05/25/2021 Comments No Sex and Gender Information Value Date Recorded Sex Assigned at Female 10/20/2024 2:15 PM BANDSAW OPERATOR Legal Sex Female 9:56 PM CDT Gender Identity Not on file Sexual Orientation Not on file documented as of this encounter Plan of Treatment Upcoming Encounters Date Type Department Care Team (Late Contact Info) Description 08/17/2025 1:30 PM BANDSAW OPERATOR Office Visit [address] [place] [phone] Sahil Marcano Jr., DO [address] [place] [address] documented as of this encounter Visit Diagnoses Not on filedocumented in this encounter Additional Health Concerns Infection Onset Date Last Indicated Resolved Time MRSA 04/16/2017 04/16/2017 Assessment Noted Time PHQ-9 Depression Total Score: 2 05/25/20 21 11:41 AM CDT documented as of this encounter Care Teams Product Safety And Standards Engineer Relationship Specialty Start Date End Date Valentín Mandel MD PCP - General FAMILY PRACTICE 09/14/21 documented as of this encounter
--- OUTSIDE RECORDS SUMMARY | 2024-12-08 07:17 | XMS_ITS | Encounter Summary ---
Author Organization [facility] Address [address] [place] [address] Care Team Providers Care Software Configuration Specialist Name Role Phone Valentín Mandel MD Primary Care Provider Encounter Details Date Type Department Care Team (Late Contact Info) Description 11/19/2024 [employer] Office [address] [place] [phone] [address] [employer], [facility] Provider Action Needed Social History Tobacco Use Types Packs/Day Years [...] Sex Assigned at Female 10/20/2024 2:15 PM OVENS SUPERVISOR Legal Sex Female 9:56 PM CDT Gender Identity Not on file Sexual Orientation Not on file documented as of this encounter Plan of Treatment Upcoming Encounters Date Type Department Care Team (Late Contact Info) Description 08/17/2025 1:30 PM OVENS SUPERVISOR Office Visit [facility] [address] [address] Sahil Marcano Jr., DO [address] [place] [address] documented as of this encounter Visit Diagnoses Not on filedocumented in this encounter Additional Health Concerns Infection Onset Date Last Indicated Resolved Time MRSA 04/16/2017 04/16/2017 Assessment Noted Time PHQ-9 Depression Total Score: 2 05/25/20 21 11:41 AM CDT documented as of this encounter Care Teams Software Configuration Specialist Relationship Specialty Start Date End Date Valentín Mandel MD PCP - General FAMILY PRACTICE 09/14/21 documented as of this encounter
--- OUTSIDE RECORDS SUMMARY | 2024-12-08 07:17 | XMS_ITS | Encounter Summary ---
Author Organization [facility] Healthcare Address [address] [place] [address] Care Team Providers Care Forklift Picker Name Role Phone Clem Suggs MD Unavailable [phone] Valentín Mandel MD Primary Care Provi desiree Encounter Details Date Type Department Care Team (Late st Contact Info) Description 10/26/2024 Results Follow-Up [facility] Family Medicine [address] [place] [address] Valentín Mandel MD [address] [place] [address] Encounter for colorectal cancer screening (Primary Dx) Social History Tobacco Use Types Packs/Day Years Used Date Smoking Tobacco: Former Cigarettes 1 45 0 09/25/1976 - 09/25/2021 Smokeless Tobacco: Never Alcohol Use Standard Drinks/Week [...] more points, staff should administer the PHQ-9) 0 07/14/2024 Personal Safety Answer Date Recorded Getting School Help Needed Denies 08/22 Comments No Sex and Gender Information Value Date Recorded Sex Assigned at Not on file Legal Sex Female 5:33 PM KILN SETTER Gender Identity Female 09/11/2024 10:09 AM KILN SETTER Sexual Orientation Straight 09/11/2024 10 :09 AM KILN SETTER documented as of this encounter Plan of Treatment Not on file documented as of this encounter Visit Diagnoses Diagnosis Encounter for colorectal cancer screening- Primary documented in this encounter Care Teams Forklift Picker Relationship Specialty Start Date End Date Valentín Mandel MD [address] [place] [address] PCP - General Family Medicine 05/03/23 Clem Suggs MD [address] [place] [address] Surgeon Orthopedic Surgery 10/10/22 documented as of this encounter
--- OUTSIDE RECORDS SUMMARY | 2024-12-08 07:17 | XMS_ITS | Clinical Summary ---
Author Organization [facility] Address [address] [place] [address] Care Team Providers Care Unit Clerk Name Role Phone Valentín Mandel MD Primary Care Provider Allergies Active Allergy Reactions Criticality Noted Date Comments Cephalexin Anaphylaxis High 03/27/2024 Penicillins Anaphylaxis High 03/27/2024 Sulfa Antibiotics Hives,Anaphylaxis High 06/17/2018 Medications multivitamin tablet Take 1 tablet by mouth daily. Active TRAZODONE 150 MG tabletIndicatio ns:Recurrent major depressive disorder, in remission,Chron ic bilateral low back pain without sciatica TAKE 1 TABLET BY MOUTH NIGHTLY AT BEDTIME 90 tablet 1 08/14/2021 Active ARIPiprazole (ABILIFY) 5 MG tablet Take 1 tablet (5 mg total) by mouth daily. 04/11/2024 Active MYRBETRIQ 50 MG 24 hr tablet Take 1 tablet (50 mg total) by mouth daily. 04/01/2024 Active oxyCODONE-aceta minophen (PERCOCET) 10-325 MG tablet Take 1 tablet by mouth every 6 (six) hours as needed. 06/10/2024 Active celecoxib (CELEBREX) 200 MG capsule Take 1 capsule (200 mg total) by mouth daily. 06/30/2024 Active aspirin 81 MG chewable tablet Chew 1 tablet (81 mg total) by mouth daily. 30 tablet 08/11/2024 Active rosuvastatin (CRESTOR) 20 MG tablet Take 1 tablet (20 mg total) by mouth daily. 06/23/2024 Active Active Problems Problem Noted Date Diagnosed Date History of right hip replacement 08/25/2024 Primary osteoarthritis of right hip 06/23/2024 Tinnitus, unspecified laterality 07/22/2021 Other emphysema ([facility]) 05/25/2021 Shortness of breath 02/04/2021 Calcification of abdominal aorta 01/31/2021 Overview (01/31/2021): Noted on lumbar x-ray 09/16/20 Carotid atherosclerosis, unspecified laterality 01/31/2021 Overview (01/31/2021): Noted on CT 06/20/13 Mild mood disorder 05/25/2020 Depression, major 2015 Impaired fasting glucose 01/06/2015 Alcoholism ([facility]) 01/06/2015 Insomnia 01/06/2015 Chronic lower back pain 05/22/2014 Sciatica 10/22/2013 Arthralgia of left shoulder region 07/11/2013 Bipolar affective disorder ([facility]) 01/2013 Chronic GERD 02/12/2013 Essential familial hypercholesterolemia 02/13/20 13 Generalized osteoarthritis 02/12/2013 Peripheral retinal edema 02/12/2013 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 11/22/2012 De Quervain's tenosynovitis 11/22/2012 Ganglion 11/22/2012 Encounters Date Type Department Care Team Description 11/19/2024 [employer] [facility] Business Office [address] [place] [id number] [facility] Provider Action Needed 10/20/2024 2:30 PM COMPUTER COMPOSITOR Office Visit [address] [address] Sahil Marcano Jr., DO Postop Followup (DOS: 08/11/2024 - RIGHT primary total hip arthroplasty, non-cemented, via a direct anterior approach)) 10/20/2024 Travel 09/22/2024 1:30 PM COMPUTER COMPOSITOR Office Visit [address] [address] Sahil Marcano Jr., DO Postop Followup (DOS: 08/11/2024 - RIGHT primary total hip arthroplasty, non-cemented, via a direct anterior approach) 09/22/2024 Telephone [facility] [address], [place] [address] Erum Ferrell PA Follow Up Call 09/22/2024 Travel from Last 3 Months Immunizations Name Administration Dates Next Due Flublok (Quadrivalent) 05/25/2020,06/23/2019 Influenza (Generic) 10/03/2016,07/21/2015,2012,09/30/2012 Influenza Adult (Generic) 06/22/2021,06/04/2018, 07/12/2017,07/19/2015 Pneumococcal (Pneumovax 23) 05/28/2015 Pneumococcal (Prevnar 13) 05/25/2020 Family History Medical History Relation Comments CHF Father Coronary artery disease Father Breast Cancer Maternal Grandmother Stroke Maternal Grandmother Stroke Mother Relation Status Comments Father Alive Maternal Grandmother Mother Social History Tobacco Use Types Packs/Day Years [...] Sex Assigned at Female 10/20/2024 2:15 PM COMPUTER COMPOSITOR Legal Sex Female 9:56 PM CDT Gender Identity Not on file Sexual Orientation Not on file Last Filed Vital Signs Vital Sign Reading Time Taken Comments Blood Pressure 117/52 08/11/2024 1:08 PM COMPUTER COMPOSITOR Pulse 84 08/11/2024 1:08 PM COMPUTER COMPOSITOR Temperature 35.9 C (96.6 F) 08/11/2024 1:08 PM COMPUTER COMPOSITOR Respiratory Rate 16 08/11/2024 1:08 PM COMPUTER COMPOSITOR Oxygen Saturation 100% 08/11/2024 1:08 PM COMPUTER COMPOSITOR Inhaled Oxygen Concentration - - Weight 93.4 kg (206 lb) 10/20/2024 2:22 PM COMPUTER COMPOSITOR Height 170.2 cm (5' 7 ) 10/20/2024 2:22 PM COMPUTER COMPOSITOR Body Mass Index 32.26 10/20/2024 2:22 PM COMPUTER COMPOSITOR Plan of Treatment Upcoming Encounters Date Type Department Care Team (Late st Contact Info) Description 08/17/2025 1:30 PM COMPUTER COMPOSITOR Office Visit [facility] [address] [place] [address] Sahil Marcano Jr., DO [address] [place] [address] Health Maintenance Due Date Last Done Comments Hepatitis C 1973 DTaP, Tdap and Td Vaccines (1 - Tdap) 1974 Lung Cancer Screening 2005 RSV Immunization or 60+ Years (1 - Risk 60-74 years 1-dose series) 2015 Colorectal Cancer Screening Colonoscopy (10 Years) 09/10/2017 09/10/2007 Pneumococcal Vaccine: 65+ Years (3 of 3 - PPSV23 or PCV20) 05/25/2021 05/25/2020, 05/28/2015 ASCVD LDL 06/07/2021 06/07/2020, 08/0 02/2019, 04/09/2018, Additional history exists Annual Medicare Wellness Visit 05/26/2022 05/25/2021 COVID-19 Vaccine ( season) 2024 06/22/2021, 06/22/2021, 11/12/2020, Additional history exists Mammogram Screening 07/27/2025 07/27/2023, 12/26/2021, 12/24/2020, Additional history exists Zoster Vaccines Completed 07/12/2022, 01/24/2022 Dexa Scan (General) Completed 05/19/2024, Meningococcal B Vaccine Aged Out No l onger eligible based on patient's age to complete this topic Meningococcal Vaccine Aged Out No saida mariah eligible based on patient's age to complete this topic RSV Immunizations Under 20 Months Aged Out No longer eligible based on patient's age to complete this topic Medical Devices Implanted Type Area Toxics Program Officer Device Identifier Shelf Expiration Date Model / Serial / Lot Shell Acetabular Zayra [employer] Osseoti G7 4 Hole 56mm F - [id number] Implanted:Qty: 1 on 08/11/2024 by Sahil Marcano Jr. DO at [facility] Hip Components Right: Hip [employer] INC [id number] 04/05/2034 [id number] / / [id number] Stem Femoral Collar Avenir Complete 6 Standard Hip Sterile Latex Free - [id number] Implanted:Qty: 1 on 08/11/2024 by Sahil Marcano Jr., DO at [facility] Hip Components Right: Hip [employer] INC [id number] 12/16/2028 [id number] / / [id number] Dual Mobility Acetabular System 44mm Bearing Size Liner Size F Neutral Acetabular Liner Co-Cr-Mo Implanted:Qty: 1 on 08/11/2024 by Sahil Marcano Jr. DO at [facility] Right: Hip [employer] INC [id number] 02/19/2034 [id number] / / [id number] Biolox Option Ceramic Femoral Head Implanted:Qty: 1 on 08/11/2024 by Sahil Marcano Jr. DO at [facility] Right: Hip [employer] INC [id number] 03/19/2034 [id number] -[id number] / / [id number] Dual Mobility Vivacit-E Vitamin E Highly Crosslinked Polyethylene Implanted:Qty: 1 on 08/11/2024 by Sahil Marcano Jr., DO at [facility] Right: Hip [employer] [id number] 02/04/2029 [id number] / / [id number] Procedures Procedure Name Priority Date/Time Associated Diagnosis Comments MG SCREENING W ADRIANNA NORM DIGI Routine 12/24/2020 12:17 PM CDT Encounter for screening mammogram for malignant neoplasm of breast LIPID PANEL Routine 06/07/2020 9:59 AM CDT Essential familial hypercholesterolemia Encounter For Preventive Health Examination COLONOSCOPY Routine 09/10/2007 12:00 AM COMPUTER COMPOSITOR from Last 3 Months or Most Recently Relevant to Health Maintenance Results * MG SCREENING W ADRIANNA NORM DIGI (12/24/2020 12:17 PM CDT) Anatomical Region Laterality Modality Breast Bilateral Mammography 12/24/2020 12:3 8 PM CDT Impressions 12/28/2020 9:58 AM CDT IMPRESSION: No significant interval change. No mammographic evidence of malignancy. . RECOMMENDATION: Annual screening mammography bilaterally in 12 months. BI-RADS 2 - BENIGN FINDINGS. . Referred By: DENTON MALDONADO Interpreted By: Kd Vaca, 12/24/2020 12:38 PM Narrative 12/28/2020 9:58 AM CDT EXAMINATION: MG SCREENING W ADRIANNA NORM DIGI INDICATIONS: Screening TECHNIQUE: Digital full field CC and MLO screening mammography bilaterally to include 3-D Tomosynthesis technique. This study was read with the assistance of a computer-aided detection system. HISTORY: No reported personal or first degree family history of breast cancer. No reported prior breast procedure or current breast complaint. COMPARISON: Multiple prior examinations dating back to 05/17/2007 the most recent of 11/12/2019, 10/31/2018, and 10/30/2017. TISSUE DENSITY: The breasts are heterogeneously dense, which may obscure small masses. FINDINGS: Scattered grossly stable typically benign round, rim, and punctate calcifications bilaterally. No suspicious microcalcification or mass. No architectural distortion or developing asymmetry. No axillary adenopathy. us Denton Maldonado MD MAMMO Final Result * (ABNORMAL) LIPID PANEL (06/07/2020 9:59 AM CDT) CHOLESTEROL 202(H) 0 - 199 MG/DL [facility] TRIGLYCERIDES 156(H) 0 - 149 MG/DL [facility] HDL 49(L) 50 - 240 MG/DL [facility] LDL (CALCULATED) 122(H) 0 - 99 MG/DL [facility] CHOL/HDL RATIO 4.1 [facility] NON HDL CHOLESTEROL 153(H) 0 - 129 MG/DL [facility] Comment: FOR AGES >=20 YEARS (MG/DL) .................IDEAL....ELEVATED....BORDERLINE......HIGH.....VERY HIGH CHOL*........<200.......................................200-239....>=240 TRIG...........<150.....................150-199......200-499....>=500 LDL-C.......<100...100-129.....130-159......160-189....>=190 NONHDL-C.<130...130-159.....160-189......190-219....>=220 BRANDEE GOLDEN, ET AL. NATIONAL LIPID ASSOCIATION RECOMMENDATIONS FOR PATIENT-CENTERED MANAGEMENT OF DYSLIPIDEMIA: PART 1-FULL REPORT. J CLIN LIPIDOL 2015;129-169. *THIRD REPORT OF THE NATIONAL CHOLESTEROL EDUCATION PROGRAM (NCEP) EXPERT PANEL ON DETECTION, EDUCATION, AND TREATMENT OF HIGH BLOOD CHOLESTEROL IN ADULTS (ADULT TREATMENT PANEL III): FINAL REPORT. CIRCULATION 2002; 106:3143. 06/07/2020 9:59 AM CDT 06/08/2020 5:20 AM CDT Narrative [facility] - 06/08/2020 6:49 AM CDT REPORT: [id number] IS PATIENT FASTING?->YES Shyam Lewis DO LABORATORY Final Resul t Performing Organization Address City/[facility] de Phone Number [id number] [place] [address] * Colonoscopy (09/10/2007 12:00 AM COMPUTER COMPOSITOR) 09/10/2007 09/10/2007 Narrative [facility] TO EPIC CONVERSION - 09/10/2007 12:00 AM COMPUTER COMPOSITOR Documented hx of procedure Procedure Note Dipak Peña MD - 07/14/2018 Documented hx of procedure Dipak Conversion Md PEÑA GI PROCEDURE ORDERABLES Final Result [facility] TO EPIC CONVERSION from Last 3 Months or Most Recently Relevant to Health Maintenance Additional Health Concerns Infection Onset Date Last Indicated MRSA 04/16/2017 04/16/2017 Insurance [id number] Care Teams Unit Clerk Relationship Specialty Start Date End Date Valentín Mandel MD PCP - General FAMILY PRACTICE 09/14/21
--- OUTSIDE RECORDS SUMMARY | 2024-12-08 07:17 | XMS_ITS | Referral Summary ---
Author Organization [facility] Address [address] [place] [address] Care Team Providers Care Software Quality Analyst Name Role Phone Clem Suggs MD Unavailable Valentín Mandel MD Primary Care Provi desiree Encounters Date Type Department Care Team Description 12/02/2024 Telephone [facility] Family Medicine [address] [place] [address] Valentín Mandel MD Additional Services Or Orders 11/10/2024 Nurse Triage [facility] Family Medicine [address] [place] [address] Valentín Mandel MD 10/28/2024 Telephone [facility] Family Medicine [address] [place] [address] Valentín Mandel MD Med Refill 10/26/2024 Results Follow-Up [facility] Family Medicine [address] [place] [address] Valentín Mandel MD Encounter for colorectal cancer screening (Primary Dx) 10/13/2024 Patient Message [facility] Family Medicine [address] [place] [address] Valentín Mandel MD Tremors in left arm 10/12/2024 Patient Message [facility] Medicine [address] [place] [address] Valentín Mandel MD Arms 10/10/2024 3:25 PM AIRPORT OPERATIONS COORDINATOR Ancillary Procedure [facility] Imaging at [address] [phone] Chronic pain of both shoulders 10/10/2024 3:00 PM AIRPORT OPERATIONS COORDINATOR Office Visit [facility] at [address] [phone] Megan Yañez NP Chronic pain of both shoulders (Primary Dx) 10/10/2024 Nurse Triage [facility] [address] [place] [address] Valentín Mandel MD 09/17/2024 Telephone [facility] [address] [place] [address] Valentín Mandel MD Medical Question/Miscellan eous 09/11/2024 Telephone [facility] [address] [place] [address] Valentín Manedl MD 09/11/2024 11:15 AM AIRPORT OPERATIONS COORDINATOR Telemedicine [facility] [address] [place] [address] Valentín Mandel MD Bipolar depression (HCC) (Primary Dx); History of right hip replacement 09/09/2024 Orders Only [facility] [address] [place] [address] Valentín Mandel MD from Last 3 Months Allergies Active Allergy Reactions Criticality Noted Date [...] Chronic GERD 02/12/2013 Essential familial hypercholesterolemia 02/13/20 Peripheral retinal edema 02/12/2013 Resolved Problems Problem [...] Quervain's tenosynovitis 11/22/2012 10/11/2021 Ganglion 11/22/2012 08/16/2021 Immunizations Immunization Administration Dates Next Due Influenza, [...] 05/28/2015 Sars-CoV-2, Unspecified 06/22/2021 ZOSTER Recombinant 07/12/2022,01/24/2022 Social History Tobacco Use Types Packs/Day Years [...] on file Legal Sex Female 5:33 PM AIRPORT OPERATIONS COORDINATOR Gender Identity Female 09/11/2024 10:09 AM AIRPORT OPERATIONS COORDINATOR Sexual Orientation Straight 09/11/2024 10 :09 AM AIRPORT OPERATIONS COORDINATOR Last Filed Vital Signs Vital Sign Reading Time Taken Comments Blood Pressure 132/68 10/10/2024 3:06 PM AIRPORT OPERATIONS COORDINATOR Pulse 68 10/10/2024 3:06 PM AIRPORT OPERATIONS COORDINATOR Temperature 36.7 C (98 F) 10/10/2024 3:06 PM AIRPORT OPERATIONS COORDINATOR Respiratory Rate 20 10/10/2024 3:06 PM AIRPORT OPERATIONS COORDINATOR Oxygen Saturation 98% 10/10/2024 3:06 PM AIRPORT OPERATIONS COORDINATOR Inhaled Oxygen Concentration - - Weight 93.9 kg (207 lb) 10/10/2024 3:06 PM AIRPORT OPERATIONS COORDINATOR Height 165.1 cm (5' 5 ) 09/11/2024 11:19 AM AIRPORT OPERATIONS COORDINATOR Body Mass Index 34.45 09/11/2024 11:19 AM AIRPORT OPERATIONS COORDINATOR Plan of Treatment Not on file Medical Devices Implanted Type Area Industrial Production Manager Device Identifier Shelf Expiration Date Model / Serial / Lot Depuy [employer] [place] 54mm 36mm Hip Neutral Liner Acetabular Altrx Sterile Latex Free [id number] - [id number] Implanted:Qty: 1 on 10/09/2022 by Clem Suggs MD at [facility] Left: Hip [employer] Inc 08/09/2027 [id number] / / [id number] [employer] [place] 54mm Sector Hip Shell Acetabular Gription Sterile Latex Free [id number] - [id number] Implanted:Qty: 1 on 10/09/2022 by Clem Suggs MD at [facility] Left: Hip [employer] 07/10/2032 [id number] / / [id number] Dep[employer] [place] 6.5mm 35mm Acetabular Cancellous Screw Bone Sterile [id number] - [id number] Implanted:Qty: 1 on 10/09/2022 by Clem Suggs MD at [facility] Left: Hip [employer] Inc 04/09/2032 [id number] / / [id number] Depuy [employer] Inc Actis Collar Hip 7 High Offset Stem Femoral [id number] - [id number] Implanted:Qty: 1 on 10/09/2022 by Clem Suggs MD at [facility] Left: Hip [employer] 04/09/2032 [id number] / / [id number] Dep[employer] Inc Articul/Viet 36mm Cementless Hip +1.5mm 08/23 Taper Head Femoral Latex Free [id number] - [id number] Implanted:Qty: 1 on 10/09/2022 by Clem Suggs MD at [facility] Left: Hip [employer] 09/09/2027 [id number] / / [id number] Procedures Procedure Name Priority Date/Time Associated Diagnosis Comments STOOL DNA COLOGUARD Routine 10/23/2024 8:55 AM AIRPORT OPERATIONS COORDINATOR Colon cancer screening XR SHOULDER BILATERAL 2+ VIEWS Schedule GELACIO, Read GELACIO (Appt Today, Awaiting Results) 10/10/2024 3:30 PM AIRPORT OPERATIONS COORDINATOR Chronic pain of both shoulders DEXA AXIAL SKELETON BONE DENSITY 1 OR MORE SITES Schedule Routine, Read Routine (OP Routine) 05/19/2024 11:38 AM CDT Postmenopausal SCREENING MAMMOGRAM BILATERAL W JOE Schedule Routine, Read Routine (OP Routine) 07/27/2023 Breast cancer screening by mammogram from Last 3 Months or Most Recently Relevant to Health Maintenance Results * Stool DNA - Cologuard (10/23/2024 8:55 AM AIRPORT OPERATIONS COORDINATOR) Stool DNA - Cologuard Negative Negative [facility] (CLIA #:[id number]) Comment: NEGATIVE TEST RESULT. A negative Cologuard [...] screened with both Cologuard and colonoscopy. (Diego Hawkins et al, N Engl J Med 2014;370(14):5009-4666) The normal value (reference range) for this assay is negative. COLOGUARD RE-SCREENING RECOMMENDATION: Periodic colorectal cancer screening is an important part of preventive healthcare for asymptomatic individuals at average risk for colorectal cancer. Following a negative Cologuard result, the [place] [employer] Society and U.S. Multi-Society Task Force screening guidelines recommend a Cologuard re-screening interval of 3 years. References: [place] [employer] Guideline for Colorectal Cancer Screening: https://www.cancer.org/cancer/hqxdk-tostog-xxlkfz/qnjzgrjky-seldfknjo-jqjehbs/ac s-rec ommendations.html.; Larry DK, Joshua MOISE, Tom JonesK, Colorectal Cancer Screening: Recommendations for Physicians and Patients from the U.S. Multi-Society Task Force on Colorectal Cancer Screening , Am J Gastroenterology 2017; 112:9726-8866. TEST DESCRIPTION: Composite algorithmic analysis of stool [...] (Diego Bauer al, N Engl J Med 2014;370(14):8335-8915.) Cologuard may produce a false negative or false positive result (no colorectal cancer or precancerous polyp present at colonoscopy follow up). A negative Cologuard test result does not guarantee the absence of CRC or advanced adenoma (pre-cancer). The current Cologuard screening interval is every 3 years. ([place] [employer] Society and U.S. Multi-Society Task Force). Cologuard performance data in a 10,000 patient pivotal study using colonoscopy as the reference method can be accessed at the following location: www.[employer]/results. Additional description of the Cologuard test process, warnings and precautions can be found at www.[employer].com. Stool 10/23/2024 8:55 AM AIRPORT OPERATIONS COORDINATOR 11/20/2024 9:49 AM CDT Valentín Mandel MD LAB BODY FLUIDS AND STOOLS ORDERABLES Final Result [facility] (CLIA #:[id number]) [address] [place] [address] * XR Shoulder Bilateral 2 or More Views (10/10/2024 3:30 PM AIRPORT OPERATIONS COORDINATOR) Anatomical Region Laterality Modality Upper Extremities, Shoulder Digi julee Radiography 10/10/2024 8:39 PM AIRPORT OPERATIONS COORDINATOR Narrative 10/10/2024 8:41 PM AIRPORT OPERATIONS COORDINATOR EXAM DESCRIPTION: XR SHOULDER BILATERAL 2+ VIEWS [...] Ross Barbosa M.D. AR T: Report ID: [id number] Reading Location: [id number] Procedure Note Ross Barbosa MD - 10/10/2024 [...] Ross Barbosa M.D. AR T: Report ID: [id number] Reading Location: [id number] us Megan Yañez NP IMG XR PROCEDURES Final Result * Dexa Axial Skeleton Bone Density 1 Or 2 Site (05/19/2024 11:38 AM CDT) Anatomical Region Laterality Modality Body N/A Radiographic Krissy ging Valentín Mandel MD IMG DXA PROCEDURES Final Result * Screening Mammogram Bilateral W Joe (07/27/2023) Anatomical Region Laterality Modality Breast Bilateral Mammography Valentín Mandel MD IMG MAMMO PROCEDURE S Final Result from Last 3 Months or Most Recently Relevant to Health Maintenance Insurance MEDICARE ADVANTAGE MEDICARE ADVANTAGE Member Subscriber Plan / Payer (Ef fective 2022-) Name:Kymberly Osullivan Relation to Subscriber:Self Name:Kymberly Osullivan Payer ID:[id number] (NAIC) Type:[facility] MEDICARE Address: [place] [id number] [facility] MEDICARE ADVANTAGE [facility] MEDICARE ADVANTAGE Advance Directives For more information, please contact: [phone] * Full Code (Latest Code Status on File) Date Activated Date Inactivated Comments 10/09/2022 5:02 PM 10/11/2022 8:58 PM Care Teams Software Quality Analyst Relationship Specialty Start Date End Date Valentín Mandel MD [address] [facility] [address] [place] [address] PCP - General Family Medicine 05/03/23 Clem Suggs MD [address] [place] [address] Surgeon Orthopedic Surgery 10/10/22
--- OUTSIDE RECORDS SUMMARY | 2024-12-08 07:17 | XMS_ITS | Encounter Summary ---
Author Organization [facility] Address [address] [place] [address] Care Team Providers Care Cut Press Operator Name Role Phone Shyam Lewis DO Primary Care Provider [phone] Valentín Mandel MD Primary Care Provider Encounter Details Date Type Department Care Team (Latest Contact Info) Description 04/19/2021 Locappy Message Enc [facility] Medical Group Multispecialty Care - [facility] [address] [facility], [address] [place] [address] Face-Me, [facility] Provider please call our office Social History Tobacco Use Types Packs/Day Years Used Date Smoking Tobacco: Former Cigarettes 1 42 0 01/16/1978 - 01/17/2020 Smokeless Tobacco: Never Alcohol Use Standard Drinks/Week Comments Yes 0 (1 standard drink = 0.6 oz pur e alcohol) occasional PHQ-2 Answer Date Recorded PHQ-2 Score - If the patient scores above 3, please move on to questions 3-9 2 05/25/2020 Comments No Sex and Gender Information Value Date Recorded Sex Assigned at Female 10/20/2024 2:15 PM MESSAGE CLERK Legal Sex Female 9:56 PM CDT Gender Identity Not on file Sexual Orientation Not on file documented as of this encounter Plan of Treatment Upcoming Encounters Date Type Department Care Team (Late st Contact Info) Description 08/17/2025 1:30 PM MESSAGE CLERK Office Visit [facility] [place] [id number] [address] Sahil Marcano Jr., DO [address] [place] [address] documented as of this encounter Visit Diagnoses Not on filedocumented in this encounter Additional Health Concerns Infection Onset Date Last Indicated Resolved Time MRSA 04/16/2017 04/16/2017 COVID-19 Rule Out 05/09/2021 05/09/2021 05/10/2021 12:31 PM CDT documented as of this encounter Care Teams Cut Press Operator Relationship Specialty Start Date End Date Shyam Lewis DO PCP - General 09/27/16 09/13/21 Valentín Mandel MD PCP - General FAMILY PRACTICE 09/14/21 documented as of this encounter
[2024-12-08 08:46] LABS: Alanine Aminotransferase 30 U/L (14-59); Albumin Level 3.7 g/dL (3.4-5.0); Alkaline Phosphatase 72 U/L (46-116); Anion Gap 4 mmol/L (4-12); Aspartate Amino Transferase 17 U/L (15-37); Bilirubin,Total 0.5 mg/dL (0.00-1.00); Blood Urea Nitrogen 21 mg/dL (7-18); Calcium 9.2 mg/dL (8.5-10.1); Carbon Dioxide 32 mmol/L (21-32); Chloride 104 mmol/L (98-108); Cholesterol 127 mg/dL (0-200); Estimated Glomerular Filt Rate 54; Glucose 80 mg/dL (70-99); HDL Direct 62 mg/dL (40-60); LDL Cholesterol Calculated 49 mg/dL (<130); Osmolality Calculated 292 mOsm/kg (285-295); Potassium 4.4 mmol/L (3.5-5.1); Sodium 140 mmol/L (136-145); Total Protein 6.8 g/dL (6.4-8.2); Triglycerides 81 mg/dL (0-150)
== END 2024-12-08 07:11 | disposition home or self-care (01) ==
LOC: CHSLAB 07:14
DX: E78.2 Mixed hyperlipidemia (principal)
CPT/HCPCS: 36415; 80053; 80061

== ENCOUNTER 2024-12-19 11:56 | Outpatient (CLI) | payer MEDICARE, SELFPAY ==
--- NOTE | ~2024-12-19 | MM_ITS ---
EXAMINATION: MM screening [facility] BI w raghavendra HISTORY: Screening TECHNIQUE: Craniocaudal and mediolateral oblique 3-D tomosynthesis images were obtained and synthetic 2-D images were generated. CAD analysis was submitted and interpreted. COMPARISON: 08/06/2023 BREAST PARENCHYMAL COMPOSITION: Not dense: There are scattered areas of fibroglandular density. FINDINGS: The right breast is stable without evidence for malignancy. There is increased number and d ensity of clustered calcifications in a linear array in the upper outer quadrant of the left breast. IMPRESSION: 1. Developing cluster of indeterminate left breast calcifications, upper outer quadrant, middle third . 2. Magnification views are recommended. BI-RADS Category 0: Incomplete: Needs additional imaging evaluation. Reviewed, dictated and finalized at location A. IMPRESSION: 1. Developing cluster of indeterminate left breast calcifications, upper outer quadrant, middle third. 2. Magnification views are recommended. BI-RADS Category 0: Incomplete: Needs additional imaging evaluation.
--- OUTSIDE RECORDS SUMMARY | 2024-12-19 12:04 | XMS_ITS | Encounter Summary ---
Author Organization [facility] Address [address] [place] [address] Care Team Providers Care Crossword Puzzle Maker Name Role Phone Shyam Lewis DO Primary Care Provider [phone] Valentín Mandel MD Primary Care Provider Encounter Details Date Type Department Care Team (Latest Contact Info) Description 04/19/2021 trakkies Research Message Enc [facility] Medical Group Multispecialty Care - [facility] [address] [facility], [address] [place] [address] PrivacyProtector, [facility] Provider please call our office Social History [...] Sex Assigned at Female 10/20/2024 2:15 PM DENTAL ASSISTING INSTRUCTOR Legal Sex Female 9:56 PM CDT Gender Identity Not on file Sexual Orientation Not on file documented as of this encounter Plan of Treatment Upcoming Encounters Date Type Department Care Team (Late st Contact Info) Description 08/17/2025 1:30 PM DENTAL ASSISTING INSTRUCTOR Office Visit [facility] [place] [id number] [address] Sahil Marcano Jr., DO [address] [place] [address] documented as of this encounter Visit Diagnoses Not on filedocumented in this encounter Additional Health Concerns Infection Onset Date Last Indicated Resolved Time MRSA 04/16/2017 04/16/2017 COVID-19 Rule Out 05/09/2021 05/09/2021 05/10/2021 12:31 PM CDT documented as of this encounter Care Teams Crossword Puzzle Maker Relationship Specialty Start Date End Date Shyam Lewis DO PCP - General 09/27/16 09/13/21 Valentín Mandel MD PCP - General FAMILY PRACTICE 09/14/21 documented as of this encounter
--- OUTSIDE RECORDS SUMMARY | 2024-12-19 12:04 | XMS_ITS | Encounter Summary ---
Author Organization [facility] Address [address] [place] [address] Care Team Providers Care Television Service Engineer Name Role Phone Valentín Mandel MD Primary Care Provider Encounter Details Date Type Department Care Team (Late Contact Info) Description 11/19/2024 [employer] [facility] [address] [place] [address] [employer], [facility] Provider Action Needed Social History Tobacco Use [...] Sex Assigned at Female 10/20/2024 2:15 PM VARNISHER APPRENTICE Legal Sex Female 9:56 PM CDT Gender Identity Not on file Sexual Orientation Not on file documented as of this encounter Plan of Treatment Upcoming Encounters Date Type Department Care Team (Late Contact Info) Description 08/17/2025 1:30 PM VARNISHER APPRENTICE Office Visit [facility] [address] [address] Sahil Marcano Jr., DO [address] [place] [address] documented as of this encounter Visit Diagnoses Not on filedocumented in this encounter Additional Health Concerns Infection Onset Date Last Indicated Resolved Time MRSA 04/16/2017 04/16/2017 Assessment Noted Time PHQ-9 Depression Total Score: 2 05/25/20 21 11:41 AM CDT documented as of this encounter Care Teams Television Service Engineer Relationship Specialty Start Date End Date Valentín Mandel MD PCP - General FAMILY PRACTICE 09/14/21 documented as of this encounter
--- OUTSIDE RECORDS SUMMARY | 2024-12-19 12:04 | XMS_ITS | Referral Summary ---
Author Organization [facility] Address [address] [place] [address] Care Team Providers Care Collar Fuser Name Role Phone Clem Suggs MD Unavailable [phone] Valentín Mandel MD Primary Care Provi desiree Encounters Date Type Department Care Team Description 12/12/2024 Letter (Out) [facility] Family Medicine [address] [place] [address] 12/12/2024 9:00 AM CDT Telemedicine [facility] Medicine [address] [facility] [address] [place] [address] Valentín Mandel MD Essential familial hypercholesterolemia (Primary Dx); Breast cancer screening by mammogram; Bipolar depression (HCC); Panlobular emphysema (HCC); Alcoholism (HCC) 12/09/2024 Orders Only [facility] Family Medicine [address] [place] [address] Valentín Mandel MD 12/02/2024 Telephone [facility] Medicine [address] [facility] [address] [place] [address] Valentín Mandel MD Additional Services Or Orders 11/10/2024 Nurse Triage [facility] [address] [facility] [address] [place] [address] Valentín Mandel MD 10/28/2024 Telephone [facility] [address] [facility] [address] [place] [address] Valentín Mandel MD Med Refill 10/26/2024 Results Follow-Up [facility] [address] [facility] [address] [place] [address] Valentín Mandel MD Encounter for colorectal cancer screening (Primary Dx) 10/13/2024 Patient Message [facility] [address] [facility] [address] [place] [address] Valentín Mandel MD Tremors in left arm 10/12/2024 Patient Message [facility] [address] [facility] [address] [place] [address] Valentín Mandel MD Arms 10/10/2024 3:25 PM DONOR RELATIONS OFFICER Ancillary Procedure [facility] Imaging at [address] [phone] Chronic pain of both shoulders 10/10/2024 3:00 PM DONOR RELATIONS OFFICER Office Visit [facility] Convenient Care at [address] [address] Megan Yañez NP Chronic pain of both shoulders (Primary Dx) 10/10/2024 Nurse Triage [facility] [address] [phone] Valentín Mandel MD from Last 3 Months Allergies Active Allergy Reactions Criticality Noted Date Comments Sulfa Anaphylaxis High 05/29/2024 Medications multivitamin capsule Take 1 capsule by mouth daily Active aspirin 81 mg enteric coated tablet Take 1 tablet (81 mg total) by mouth daily Active ARIPiprazole (ABILIFY) 5 mg tabletIndicatio ns:Bipolar Disorder TAKE 1 TABLET (5 MG TOTAL) BY MOUTH DAILY. 90 tablet 3 Active rosuvastatin (CRESTOR) 20 mg tablet TAKE [...] 90 tablet 3 5 10/13/19 26 Active solifenacin (VESIcare) 5 mg tablet Take 1 tablet (5 mg total) by mouth daily 30 tablet 5 5 11/11/19 26 Active oxyCODONE-aceta minophen (PERCOCET) 10-325 mg per tabletIndicatio ns:Pain Take 1 tablet by mouth every 6 (six) hours as needed for pain 78 tablet 5 Active clonazePAM (KlonoPIN) 0.5 mg tablet Take 1 tablet (0.5 mg total) by mouth 2 (two) times a day 60 tablet 5 5 01/08/20 25 Active traZODone (DESYREL) 150 mg tablet Take 1 tablet (150 mg total) by mouth nightly 5 Active oxyCODONE-aceta minophen (PERCOCET) 10-325 mg per tabletIndicatio ns:Pain Take 1 tablet by mouth every 6 (six) hours as needed for pain 78 tablet 5 11/28/19 25 Discontinu ed(Reorder ) oxyBUTYnin (DITROPAN) 5 mg tablet Take 1 tablet (5 mg total) by mouth 2 (two) times a day 30 tablet 5 12/13/19 25 Discontinu ed(Therapy completed) Active Problems Problem Noted Date Diagnosed Date History of right hip replacement 08/25/2024 Cigarette nicotine dependence in remission 08/03 Chronic bilateral low back pain without sciatica 08/03/2021 Bipolar depression 08/03/2021 Panlobular emphysema 05/25/2021 Calcification of abdominal aorta 01/31/2021 Overview (08/16/2021): Noted on lumbar x-ray 1/7/21 Carotid atherosclerosis 01/31/2021 Overview (08/16/2021): Noted on [...] Used Date Smoking Tobacco: Former Cigarettes 1 48.5 0 03/10/1973 - 09/25/2021 Vaping Smokeless Tobacco: Current Tobacco Cessation:Ready to Q uit: No; Counseling Given: Not Answered Comments:I quit smoking cigarettes 09/25/2020. Alcohol Use Standard Drinks/Week Comments Yes 0 [...] on file Legal Sex Female 5:33 PM DONOR RELATIONS OFFICER Gender Identity Female 09/11/2024 10:09 AM DONOR RELATIONS OFFICER Sexual Orientation Straight 09/11/2024 10 :09 AM DONOR RELATIONS OFFICER Last Filed Vital Signs Vital Sign Reading Time Taken Comments Blood Pressure 132/68 10/10/2024 3:06 PM DONOR RELATIONS OFFICER Pulse 68 10/10/2024 3:06 PM DONOR RELATIONS OFFICER Temperature 36.7 C (98 F) 10/10/2024 3:06 PM DONOR RELATIONS OFFICER Respiratory Rate 20 10/10/2024 3:06 PM DONOR RELATIONS OFFICER Oxygen Saturation 98% 10/10/2024 3:06 PM DONOR RELATIONS OFFICER Inhaled Oxygen Concentration - - Weight 93.9 kg (207 lb) 10/10/2024 3:06 PM DONOR RELATIONS OFFICER Height 165.1 cm (5' 5 ) 09/11/2024 11:19 AM DONOR RELATIONS OFFICER Body Mass Index 34.45 09/11/2024 11:19 AM DONOR RELATIONS OFFICER Plan of Treatment Not on file Medical Devices Implanted Type Area Silver Recovery Operator Device Identifier Shelf Expiration Date Model / Serial / Lot [employer] [place] 54mm 36mm Hip Neutral Liner Acetabular Altrx Sterile Latex Free [id number] - [id number] Implanted:Qty: 1 on 10/09/2022 by Clem Suggs MD at [facility] Left: Hip [employer] 08/09/2027 [id number] / / [id number] [employer] [place] 54mm Sector Hip Shell Acetabular Gription Sterile Latex Free [id number] - [id number] Implanted:Qty: 1 on 10/09/2022 by Clem Suggs MD at [facility] Left: Hip [employer] 07/10/2032 [id number] / / [id number] [employer] [place] 6.5mm 35mm Acetabular Cancellous Screw Bone Sterile 1217-35-500 - [id number] Implanted:Qty: 1 on 10/09/2022 by Clem Suggs MD at [facility] Left: Hip [employer] 04/09/2032 1217-35-500 / / [id number] [employer] Actis Collar Hip 7 High Offset Stem Femoral [id number] - [id number] Implanted:Qty: 1 on 10/09/2022 by Clem Suggs MD at [facility] Left: Hip [employer] 04/09/2032 [id number] / / [id number] [employer] Articul/Viet 36mm Cementless Hip +1.5mm 12/14 Taper Head Femoral Latex Free [id number] - [id number] Implanted:Qty: 1 on 10/09/2022 by Clem Suggs MD at [facility] Left: Hip [employer] 09/09/2027 [id number] / / [id number] Procedures Procedure Name Priority Date/Time Associated Diagnosis Comments SCAN - LABS Routine 12/08/2024 STOOL DNA COLOGUARD Routine 10/23/2024 8:55 AM DONOR RELATIONS OFFICER Colon cancer screening XR SHOULDER BILATERAL 2+ VIEWS Schedule GELACIO, Read GELACIO (Appt Today, Awaiting Results) 10/10/2024 3:30 PM DONOR RELATIONS OFFICER Chronic pain of both shoulders DEXA AXIAL SKELETON BONE DENSITY 1 OR MORE SITES Schedule Routine, Read Routine (OP Routine) 05/19/2024 11:38 AM CDT Postmenopausal SCREENING MAMMOGRAM BILATERAL W JOE Schedule Routine, Read Routine (OP Routine) 07/27/2023 Breast cancer screening by mammogram from Last 3 Months or Most Recently Relevant to Health Maintenance Results * SCAN - LABS (12/08/2024) us Historical Provider MD Final Res ult [address] [phone] * Stool DNA - Cologuard (10/23/2024 8:55 AM DONOR RELATIONS OFFICER) Stool DNA - Cologuard Negative Negative [employer] (CLIA #:[id number]) Comment: NEGATIVE TEST RESULT. A negative Cologuard [...] Hawkins et al, N Engl J Med 2014;370(14):7520-4351) The normal value (reference range) for this assay is negative. COLOGUARD RE-SCREENING RECOMMENDATION: Periodic colorectal cancer screening is an important part of preventive healthcare for asymptomatic individuals at average risk for colorectal cancer. Following a negative Cologuard result, the [place] [employer] Society and U.S. Multi-Society Task Force screening guidelines recommend a Cologuard re-screening interval of 3 years. References: [place] [employer] Guideline for Colorectal Cancer Screening: https://www.cancer.org/cancer/ysmvz-jahzad-kniltl/nisjqxlwz-byjxjiqki-qtaivdy/ac s-rec ommendations.html.; Larry DK, Joshua CR, Tom JonesK, Colorectal Cancer Screening: Recommendations for Physicians and Patients from the U.S. Multi-Society Task Force on Colorectal Cancer Screening , Am J Gastroenterology 2017; 112:7031-1449. TEST DESCRIPTION: Composite algorithmic analysis of stool [...] (Diego Bauer al, N Engl J Med 2014;370(14):1126-1952.) Cologuard may produce a false negative or false positive result (no colorectal cancer or precancerous polyp present at colonoscopy follow up). A negative Cologuard test result does not guarantee the absence of CRC or advanced adenoma (pre-cancer). The current Cologuard screening interval is every 3 years. ([place] [employer] Society and U.S. Multi-Society Task Force). Cologuard performance data in a 10,000 patient pivotal study using colonoscopy as the reference method can be accessed at the following location: www.Tagwhat.Around Knowledge/results. Additional description of the Cologuard test process, warnings and precautions can be found at www.cologuard.com. Stool 10/23/2024 8:55 AM DONOR RELATIONS OFFICER 11/20/2024 9:49 AM CDT us Valentín Mandel MD LAB BODY FLUIDS AND STOOLS ORDERABLES Final Result [facility] (CLIA #:[id number]) [address] [place] [address] * XR Shoulder Bilateral 2 or More Views (10/10/2024 3:30 PM DONOR RELATIONS OFFICER) Anatomical Region Laterality Modality Upper Extremities, Shoulder Digi julee Radiography 10/10/2024 8:39 PM DONOR RELATIONS OFFICER Narrative 10/10/2024 8:41 PM DONOR RELATIONS OFFICER EXAM DESCRIPTION: XR SHOULDER BILATERAL 2+ VIEWS [...] Ross Barbosa M.D. AR T: Report ID: [id number] Reading Location: [id number] Procedure Note Ross Barbosa MD - 10/10/2024 [...] Ross Barbosa M.D. AR T: Report ID: [id number] Reading Location: [id number] us Megan Yañez NP IMG XR PROCEDURES Final Result * Dexa Axial Skeleton Bone Density 1 Or 2 Site (05/19/2024 11:38 AM CDT) Anatomical Region Laterality Modality Body N/A Radiographic Krissy ging us Valentín Mandel MD IMG DXA PROCEDURES Final Result * Screening Mammogram Bilateral W Joe (07/27/2023) Anatomical Region Laterality Modality Breast Bilateral Mammography us Valentín Mandel MD IMG MAMMO PROCEDURE S Final Result from Last 3 Months or Most Recently Relevant to Health Maintenance Insurance MEDICARE [facility] MEDICARE Address: [address] [address] [facility] MEDICARE [facility] MEDICARE Address: [address] [address] [place] [address] [facility] MEDICARE [facility] MEDIC[facility] Address: [address] [place] [address] [facility] MEDICARE [facility] MEDIC[facility] Address: [address] [address] [place] [address] Advance Directives For more information, please contact: [phone] * Full Code (Latest Code Status on File) Date Activated Date Inactivated Comments 10/09/2022 5:02 PM 10/11/2022 8:58 PM Care Teams Collar Fuser Relationship Specialty Start Date End Date Valentín Mandel MD [facility] [address] [address] PCP - General Family Medicine 05/03/23 Clem Suggs MD [address] [place] [address] DR ROSENBERG [address] [place], [place] [address], [place] [address] Surgeon Orthopedic Surgery 10/10/22
--- OUTSIDE RECORDS SUMMARY | 2024-12-19 12:04 | XMS_ITS | Encounter Summary ---
Author Organization [facility] Address [address] [place] [address] Care Team Providers Care Wall And Floor Tiler Name Role Phone Valentín Mandel MD Primary Care Provider Encounter Details Date Type Department Care Team (Late Contact Info) Description 06/23/2024 [place] [address] Malinda Nicholson, [facility] [address] [facility] [place] [address] Visit Follow Up Social History Tobacco Use [...] Sex Assigned at Female 10/20/2024 2:15 PM DATA DEVELOPER Legal Sex Female 9:56 PM CDT Gender Identity Not on file Sexual Orientation Not on file documented as of this encounter Plan of Treatment Upcoming Encounters Date Type Department Care Team (Late Contact Info) Description 08/17/2025 1:30 PM DATA DEVELOPER Office Visit [address] [place] [phone] Sahil Marcano Jr., DO [address] [place] [address] documented as of this encounter Visit Diagnoses Not on filedocumented in this encounter Additional Health Concerns Infection Onset Date Last Indicated Resolved Time MRSA 04/16/2017 04/16/2017 Assessment Noted Time PHQ-9 Depression Total Score: 2 05/25/20 21 11:41 AM CDT documented as of this encounter Care Teams Wall And Floor Tiler Relationship Specialty Start Date End Date Valentín Mandel MD PCP - General FAMILY PRACTICE 09/14/21 documented as of this encounter
--- OUTSIDE RECORDS SUMMARY | 2024-12-19 12:04 | XMS_ITS | Clinical Summary ---
Author Organization [facility] Address [address] [place] [address] Care Team Providers Care Sale Professional Digital Marketing Name Role Phone Clem Suggs MD Unavailable [phone] Valentín Mandel MD Primary Care Provi desiree [...] Date Type Department Care Team Description 12/12/2024 9:00 AM CDT Telemedicine [facility] [address] [facility] [address] [place] [phone] Valentín Mandel MD Essential familial hypercholesterolemia (Primary Dx); Breast cancer screening by mammogram; Bipolar depression (HCC); Panlobular emphysema (HCC); Alcoholism (HCC) 12/12/2024 Letter (Out) [facility] [address] [facility] [address] [place] [phone] 12/09/2024 Orders Only [address] [place] [phone] Valentín Mandel MD 12/02/2024 Telephone [facility] [address] [facility] [address] [place] [phone] Valentín Mandel MD Additional Services Or Orders 11/10/2024 Nurse Triage [address] [place] [phone] Valentín Mandel MD 10/28/2024 Telephone [facility] [address] [facility] [address] [place] [phone] Valentín Mandel MD Med Refill 10/26/2024 Results Follow-Up [facility] [address] [facility] [address] [place] [address] Valentín Mandel MD Encounter for colorectal cancer screening (Primary Dx) 10/13/2024 Patient Message [facility] [address] [facility] [address] [place] [phone] Valentín Mandel MD Tremors in left arm 10/12/2024 Patient Message [facility] [address] [facility] [address] [place] [phone] Valentín Mandel MD Arms 10/10/2024 3:25 PM PICKLER HELPER Ancillary Procedure [facility] Imaging at [address] [phone] Chronic pain of both shoulders 10/10/2024 3:00 PM PICKLER HELPER Office Visit [facility] at [address] [phone] Megan Yañez NP Chronic pain of both shoulders (Primary Dx) 10/10/2024 Nurse Triage [facility] [address] [facility] [address] [place] [phone] Valentín Mandel MD from Last 3 Months [...] SURGERY 10/09/2021 Left replaced - Dr. Suggs ANGIOPLASTY 10/09/2020 & 08/11/2024 TUBAL LIGATION 02/1986 FRACTURE SURGERY 10/2010 Medical History Medical History Date Comments Arthritis Emphysema of lung (HCC) Hypercholesteremia Depression GERD (gastroesophageal reflux disease) 03/2024 Alcohol abuse 1994 Anxiety 2016? Family History Medical History Relation Name Comments No Known Problems Brother 1 Alcohol abuse Father Luis Oquendo Heart disease Father Luis Oquendo Hypertension Father Luis Oquendo Breast cancer Maternal Grandmother Gout Mother [place] Muskopf Heart disease Mother Dana Muskopf Hypertension Mother [place] Stroke Mother Dana Muskopf No Known Problems Other 2 children No Known Problems Sister 1 No Known Problems Sister 2 Relation Name Status Comments Brother 1 Alive Brother 2 Sucide Father Luis Oquendo Maternal Grandmother Mother Dana Mon Other 2 children Alive Sister 1 Alive [...] on file Legal Sex Female 5:33 PM PICKLER HELPER Gender Identity Female 09/11/2024 10:09 AM PICKLER HELPER Sexual Orientation Straight 09/11/2024 10 :09 AM PICKLER HELPER Obstetrics History Para Term AB IAB SAB Ectopic Multiple Livin g Live Births 2 2 2 Date Outcome GA Total Labor Labor/2nd/3rd Weight Sex Type Anes PTL Cathie A1 A5 Name Clin Term Term Last Filed Vital Signs Vital Sign Reading Time Taken Comments Blood Pressure 132/68 10/10/2024 3:06 PM PICKLER HELPER Pulse 68 10/10/2024 3:06 PM PICKLER HELPER Temperature 36.7 C (98 F) 10/10/2024 3:06 PM PICKLER HELPER Respiratory Rate 20 10/10/2024 3:06 PM PICKLER HELPER Oxygen Saturation 98% 10/10/2024 3:06 PM PICKLER HELPER Inhaled Oxygen Concentration - - Weight 93.9 kg (207 lb) 10/10/2024 3:06 PM PICKLER HELPER Height 165.1 cm (5' 5 ) 09/11/2024 11:19 AM PICKLER HELPER Body Mass Index 34.45 09/11/2024 11:19 AM PICKLER HELPER Plan of Treatment Health Maintenance Due Date Last Done Comments Hepatitis C Screening 1955 DTaP/Tdap/Td Vaccine (1 - Tdap) 1966 Hepatitis B Screening 1973 Lung Cancer Screening 2005 Breast Cancer Screening-Mammogram 07/27/2024 07/27/2023, 07/27/2023, 12/26/2021, Additional history exists Covid-19 Vaccine ( season) 2025 08/07/2023, 07/11/2022, 01/24/2022, Additional history exists Postponed from 05/11/2024 (Patient declined, but will receive in the future) Pneumococcal vaccine 65+ (3 of 3 - PCV20 or PCV21) 05/29/2025 05/25/2020, 05/28/2015 Postponed f rom 05/25/2025 (Patient declined, but will receive in the future) Depression Screening 12/12/2025 12/12/2024, 07/14/2024, 07/03/2023, Additional history exists Fall Risk Assessment 12/12/2025 12/12/2024, 07/14/2024, 07/03/2023, Additional history exists Well Visit 65+ 12/12/2025 12/12/2024, 04/0 12/2024, 07/03/2023, Additional history exists Osteoporosis Screening-Bone Density Scan 05/19/2026 05/19/2024, 12/26/2021 Colon Cancer Screening-DNA Stool 10/23/2027 10/23/2024, 08/01/2024, 08/12/2021, Additional history exists Zoster Vaccine Completed 07/12/2022, 01/24/2022 Influenza Vaccine Completed 07/14/2024, , 06/14/2022, Additional history exists Colon Cancer Screening-FIT Discontinued 10/23, 08/01/2024, 08/12/2021, Additional history exists Medical Devices Implanted Type Area Email Manager Device Identifier Shelf Expiration Date Model / Serial / Lot [employer] [place] 54mm 36mm Hip Neutral Liner Acetabular Altrx Sterile Latex Free [id number] - [id number] Implanted:Qty: 1 on 10/09/2022 by Clem Suggs MD at [facility] Left: Hip [employer] 08/09/2027 [id number] / / [id number] [employer] [place] 54mm Sector Hip Shell Acetabular Gription Sterile Latex Free [id number] - [id number] Implanted:Qty: 1 on 10/09/2022 by Clem Suggs MD at [facility] Left: Hip [employer] 07/10/2032 [id number] / / [id number] [employer] [place] 6.5mm 35mm Acetabular Cancellous Screw Bone Sterile [id number] - [id number] Implanted:Qty: 1 on 10/09/2022 by Clem Suggs MD at [facility] Left: Hip [employer] 04/09/2032 [id number] / / [id number] [employer] Actis Collar Hip 7 High Offset Stem Femoral [id number] - [id number] Implanted:Qty: 1 on 10/09/2022 by Clem Suggs MD at [facility] Left: Hip [employer] 04/09/2032 [id number] / / [id number] [employer] Articul/Viet 36mm Cementless Hip +1.5mm 12/14 Taper Head Femoral Latex Free [id number] - [id number] Implanted:Qty: 1 on 10/09/2022 by Clem Suggs MD at [facility] Left: Hip [employer] 09/09/2027 [id number] / / [id number] Procedures Procedure Name Priority Date/Time Associated Diagnosis Comments SCAN - LABS Routine 12/08/2024 STOOL DNA COLOGUARD Routine 10/23/2024 8:55 AM PICKLER HELPER Colon cancer screening XR SHOULDER BILATERAL 2+ VIEWS Schedule GELACIO, Read GELACIO (Appt Today, Awaiting Results) 10/10/2024 3:30 PM PICKLER HELPER Chronic pain of both shoulders DEXA AXIAL [...] us Historical Provider MD Final Res ult [address] [phone] * Stool DNA - Cologuard (10/23/2024 8:55 AM PICKLER HELPER) Stool DNA - Cologuard Negative Negative [employer] (CLIA #:[id number]) Comment: NEGATIVE TEST RESULT. A negative Cologuard [...] (Diego Bauer al, N Engl J Med 2014;370(14):1407-6501) The normal value (reference range) for this assay is negative. COLOGUARD RE-SCREENING RECOMMENDATION: Periodic colorectal cancer screening is an important part of preventive healthcare for asymptomatic individuals at average risk for colorectal cancer. Following a negative Cologuard result, the British Cancer Society and U.S. Multi-Society Task Force screening guidelines recommend a Cologuard re-screening interval of 3 years. References: British Cancer Society Guideline for Colorectal Cancer Screening: https://www.cancer.org/cancer/prfko-hlgoig-jwlykr/jajjhdfmk-apgifntsa-kusjqzt/ac s-rec ommendations.html.; Larry DK, Joshua CR, Tom JonesK, Colorectal Cancer Screening: Recommendations for Physicians and Patients from the U.S. Multi-Society Task Force on Colorectal Cancer Screening , Am J Gastroenterology 2017; 112:2649-2198. TEST DESCRIPTION: Composite algorithmic analysis of stool [...] (Diego Bauer al, N Engl J Med 2014;370(14):2724-1991.) Cologuard may produce a false negative or false positive result (no colorectal cancer or precancerous polyp present at colonoscopy follow up). A negative Cologuard test result does not guarantee the absence of CRC or advanced adenoma (pre-cancer). The current Cologuard screening interval is every 3 years. (British Cancer Society and U.S. Multi-Society Task Force). Cologuard performance data in a 10,000 patient pivotal study using colonoscopy as the reference method can be accessed at the following location: www.AudioCaseFiles[facility]/results. Additional description of the Cologuard test process, warnings and precautions can be found at www.Instantisrd.com. Stool 10/23/2024 8:55 AM PICKLER HELPER 11/20/2024 9:49 AM CDT us Valentín Mandel MD LAB BODY FLUIDS AND STOOLS ORDERABLES Final Result [employer] (CLIA #:[id number]) [address] [place] [address] * XR Shoulder Bilateral 2 or More Views (10/10/2024 3:30 PM PICKLER HELPER) Anatomical Region Laterality Modality Upper Extremities, Shoulder Digi julee Radiography 10/10/2024 8:39 PM PICKLER HELPER Narrative 10/10/2024 8:41 PM PICKLER HELPER EXAM DESCRIPTION: XR SHOULDER BILATERAL 2+ VIEWS [...] 8:41 PM - Electronically signed by Ross CRYSTAL T: Report ID: [id number] Reading Location: [place] [address] Procedure Note Ross Barbosa MD - 10/10/2024 [...] 8:41 PM - Electronically signed by Ross CRYSTAL T: Report ID: [id number] Reading Location: [place] [address] Megan Yañez NP IMG XR PROCEDURES Final Result * Dexa Axial Skeleton Bone Density 1 Or 2 Site (05/19/2024 11:38 AM CDT) Anatomical Region Laterality Modality Body N/A Radiographic Krissy ging Valentín Mandel MD [facility] DXA PROCEDURES Final Result * Screening Mammogram Bilateral W Joe (07/27/2023) Anatomical Region Laterality Modality Breast Bilateral Mammography Valentín Mandel MD [facility] MAMMO PROCEDURE S Final Result from Last 3 Months or Most Recently Relevant to Health Maintenance Insurance [facility] MEDICARE ADVANTAGE MEDICARE ADVANTAGE MEDICARE ADVANTAGE MEDICARE ADVANTAGE Advance Directives For more information, please contact: [phone] * Full Code (Latest Code Status on File) Date Activated Date Inactivated Comments 10/09/2022 5:02 PM 10/11/2022 8:58 PM Care Teams Sale Professional Digital Marketing Relationship Specialty Start Date End Date Valentín Mandel MD [address] [facility] [address] [place] [address] PCP - General Family Medicine 05/03/23 Clem Suggs MD [address] [place] [address] Surgeon Orthopedic Surgery 10/10/22
--- OUTSIDE RECORDS SUMMARY | 2024-12-19 12:04 | XMS_ITS | Clinical Summary ---
Author Organization [facility] Address [address] [place] [address] Care Team Providers Care Ornamental Ironworker Helper Name Role Phone Valentín Mandel MD Primary [...] 06/23/2024 Tinnitus, unspecified laterality 07/22/2021 Other emphysema ([facility]) 05/25/2021 Shortness of breath 02/04/2021 Calcification of abdominal aorta 01/31/2021 Overview (01/31/2021): Noted on lumbar x-ray 09/16/20 Carotid atherosclerosis, unspecified laterality 01/31/2021 Overview (01/31/2021): Noted on CT 06/20/13 Mild mood disorder 05/25/2020 Depression, major 2015 Impaired fasting glucose 01/06/2015 Alcoholism ([facility]) 01/06/2015 Insomnia 01/06/2015 Chronic lower back pain 05/22/2014 Sciatica 10/22/2013 Arthralgia of left shoulder region 07/11/2013 Bipolar affective disorder ([facility]) 01/2013 Chronic GERD 02/12/2013 Essential familial hypercholesterolemia 02/13/20 13 Generalized osteoarthritis 02/12/2013 Peripheral retinal edema 02/12/2013 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 11/22/2012 De Quervain's tenosynovitis 11/22/2012 Ganglion 11/22/2012 Encounters Date Type Department Care Team Description 11/19/2024 [facility] [address] [place] [phone] [facility] Provider Action Needed 10/20/2024 2:30 PM TECHNOLOGY SALES SPECIALIST Office Visit [address] [address] Sahil Marcano Jr., DO Postop Followup (DOS: 08/11/2024 - RIGHT primary total hip arthroplasty, non-cemented, via a direct anterior approach)) 10/20/2024 Travel 09/22/2024 1:30 PM TECHNOLOGY SALES SPECIALIST Office Visit [address] [address] Sahil Marcano Jr., DO Postop Followup (DOS: 08/11/2024 - RIGHT primary total hip arthroplasty, non-cemented, via a direct anterior approach) 09/22/2024 Telephone [facility] [address], [place] [address] Erum Ferrell PA Follow Up Call 09/22/2024 [...] Sex Assigned at Female 10/20/2024 2:15 PM TECHNOLOGY SALES SPECIALIST Legal Sex Female 9:56 PM CDT Gender Identity Not on file Sexual Orientation Not on file Last Filed Vital Signs Vital Sign Reading Time Taken Comments Blood Pressure 117/52 08/11/2024 1:08 PM TECHNOLOGY SALES SPECIALIST Pulse 84 08/11/2024 1:08 PM TECHNOLOGY SALES SPECIALIST Temperature 35.9 C (96.6 F) 08/11/2024 1:08 PM TECHNOLOGY SALES SPECIALIST Respiratory Rate 16 08/11/2024 1:08 PM TECHNOLOGY SALES SPECIALIST Oxygen Saturation 100% 08/11/2024 1:08 PM TECHNOLOGY SALES SPECIALIST Inhaled Oxygen Concentration - - Weight 93.4 kg (206 lb) 10/20/2024 2:22 PM TECHNOLOGY SALES SPECIALIST Height 170.2 cm (5' 7 ) 10/20/2024 2:22 PM TECHNOLOGY SALES SPECIALIST Body Mass Index 32.26 10/20/2024 2:22 PM TECHNOLOGY SALES SPECIALIST Plan of Treatment Upcoming Encounters Date Type Department Care Team (Late st Contact Info) Description 08/17/2025 1:30 PM TECHNOLOGY SALES SPECIALIST Office Visit [facility] [address] [facility] [address] [place] [address] Sahil Marcano Jr., DO [address] [place] [address] Health Maintenance Due Date Last [...] this topic Medical Devices Implanted Type Area Highway Maintenance Technician Device Identifier Shelf Expiration Date Model / Serial / Lot Shell Acetabular [employer] Osse[place] G7 4 Hole 56mm F - [id number] Implanted:Qty: 1 on 08/11/2024 by Sahil Marcano Jr. DO at [facility] Hip Components Right: Hip [employer] INC [id number] 04/05/2034 [id number] / / [id number] Stem Femoral Collar Avenir Complete 6 Standard Hip Sterile Latex Free - [id number] Implanted:Qty: 1 on 08/11/2024 by Sahil Marcano Jr., DO at [facility] Hip Components Right: Hip [employer] [id number] 12/16/2028 [id number] / / [id number] Dual Mobility Acetabular System 44mm Bearing Size Liner Size F Neutral Acetabular Liner Co-Cr-Mo Implanted:Qty: 1 on 08/11/2024 by Sahil Marcano Jr. DO at [facility] Right: Hip [employer] [id number] 02/19/2034 [id number] / / [id number] Biolox Option Ceramic Femoral Head Implanted:Qty: 1 on 08/11/2024 by Sahil Marcano Jr. DO at [facility] Right: Hip [employer] [id number] 03/19/2034 [id number] / / [id number] Dual Mobility Vivacit-E Vitamin E Highly Crosslinked Polyethylene Implanted:Qty: 1 on 08/11/2024 by Sahil Marcano Jr., DO at [facility] Right: Hip [employer] [id number] 02/04/2029 [id number] / / [id number] Procedures Procedure Name Priority Date/Time Associated Diagnosis Comments MG SCREENING W [place]NA NORM DIGI Routine 12/24/2020 12:17 PM CDT Encounter for screening mammogram for malignant neoplasm of breast LIPID PANEL Routine 06/07/2020 9:59 AM CDT Essential familial hypercholesterolemia Encounter For Preventive Health Examination COLONOSCOPY Routine 09/10/2007 12:00 AM TECHNOLOGY SALES SPECIALIST from Last 3 Months or Most Recently [...] CDT) CHOLESTEROL 202(H) 0 - 199 MG/DL [facility] 156(H) 0 - 149 MG/DL [facility] HDL 49(L) 50 - 240 MG/DL [facility] LDL (CALCULATED) 122(H) 0 - 99 MG/DL [facility] CHOL/HDL RATIO 4.1 [facility] NON HDL CHOLESTEROL 153(H) 0 - 129 MG/DL [facility] Comment: FOR AGES >=20 YEARS (MG/DL) .................IDEAL....ELEVATED....BORDERLINE......HIGH.....VERY [...] AM CDT 06/08/2020 5:20 AM CDT Narrative [facility] - 06/08/2020 6:49 AM CDT REPORT: [id number] IS PATIENT FASTING?->YES Shyam Lewis DO LABORATORY Final Resul t Performing Organization Address City/[facility] Phone Number [id number] [place] [address] * Colonoscopy (09/10/2007 12:00 AM TECHNOLOGY SALES SPECIALIST) 09/10/2007 09/10/2007 Narrative [facility] TO EPIC CONVERSION - 09/10/2007 12:00 AM TECHNOLOGY SALES SPECIALIST Documented hx of procedure Procedure Note Dipak Peña MD - 07/14/2018 Documented hx of procedure Dipak Conversion Md PEÑA GI PROCEDURE ORDERABLES Final Result [facility] CONVERSION from Last 3 Months or Most Recently Relevant to Health Maintenance Additional Health Concerns Infection Onset Date Last Indicated MRSA 04/16/2017 04/16/2017 Insurance [id number] Care Teams Ornamental Ironworker Helper Relationship Specialty Start Date End Date Valentín Mandel MD PCP - General FAMILY PRACTICE 09/14/21
--- OUTSIDE RECORDS SUMMARY | 2024-12-19 12:04 | XMS_ITS | Encounter Summary ---
Author Organization [facility] Healthcare Address [address] [place] [address] Care Team Providers Care Housekeeper Name Role Phone Clem Suggs MD Unavailable [phone] Valentín Mandel MD Primary Care Provi desiree Encounter Details Date Type Department Care Team (Late st Contact Info) Description 10/26/2024 Results Follow-Up [facility] Family Medicine [address] [place] [address] Valentín Mandel MD [address] [place] [address] Encounter for colorectal cancer screening [...] on file Legal Sex Female 5:33 PM DIRECTOR ONLINE MARKETING Gender Identity Female 09/11/2024 10:09 AM DIRECTOR ONLINE MARKETING Sexual Orientation Straight 09/11/2024 10 :09 AM DIRECTOR ONLINE MARKETING documented as of this encounter Plan of Treatment Not on file documented as of this encounter Visit Diagnoses Diagnosis Encounter for colorectal cancer screening- Primary documented in this encounter Care Teams Housekeeper Relationship Specialty Start Date End Date Valentín Mandel MD [address] [place] [address] PCP - General Family Medicine 05/03/23 Clem Suggs MD [address] [place] [address] Surgeon Orthopedic Surgery 10/10/22 documented as of this encounter
== END 2024-12-19 11:57 | disposition home or self-care (01) ==
LOC: CHSIMG 11:59
PROVIDERS: Visit Provider Family Medicine
DX: Z12.31 Encounter for screening mammogram for malignant neoplasm of breast (principal); R91.8 Other nonspecific abnormal finding of lung field
CPT/HCPCS: 77063; 77067

== ENCOUNTER 2025-01-13 09:39 | Outpatient (CLI) | payer MEDICARE, SELFPAY ==
--- NOTE | ~2025-01-13 | MM_ITS ---
EXAMINATION: MM diagnostic giulia LT w raghavendra HISTORY: Follow-up left breast calcifications TECHNIQUE: Additional 3-D tomosynthesis images of the left breast were performed and synthetic 2-D im ages were generated. CAD analysis was submitted and interpreted. COMPARISON: Comparison to multiple prior studies sequentially, with oldest reviewed study dated 07/11. BREAST PARENCHYMAL COMPOSITION: Not dense: There are scattered areas of fibroglandular density. FINDINGS: There is a cluster of calcifications in the upper outer quadrant of the left breast which i s developing compared with prior studies. These calcifications have an indeterminate appearance altho ugh course. No suspicious masses or architectural distortion. IMPRESSION: 1. Developing cluster of indeterminate calcifications upper outer quadrant of the left breast. 2. Stereotactic left breast biopsy recommended. BI-RADS category 4, suspicious findings. Reviewed, dictated and finalized at location A. IMPRESSION: 1. Developing cluster of indeterminate calcifications upper outer quadrant of t he left breast. 2. Stereotactic left breast biopsy recommended. BI-RADS category 4, suspicious findings.
--- OUTSIDE RECORDS SUMMARY | 2025-01-13 10:19 | XMS_ITS | Encounter Summary ---
Author Organization [facility] Address [address] [place] [address] Care Team Providers Care Junior Qa Analyst Name Role Phone Shyam Lewis DO Primary Care Provider [phone] Valentín Mandel MD Primary Care Provider Encounter Details Date Type Department Care Team (Latest Contact Info) Description 04/19/2021 Handmade Mobile Message Enc [facility] Medical Group Multispecialty Care - [facility] [address], [address] [place] [address] [employer], [facility] Provider please call our office [...] Sex Assigned at Female 10/20/2024 2:15 PM SENIOR BENEFITS MANAGER Legal Sex Female 9:56 PM CDT Gender Identity Not on file Sexual Orientation Not on file documented as of this encounter Plan of Treatment Upcoming Encounters Date Type Department Care Team (Late st Contact Info) Description 08/17/2025 1:30 PM SENIOR BENEFITS MANAGER Office Visit [facility] [place] [id number] [address] [address] Sahil Marcano Jr., DO [address] [place] [address] documented as of this encounter Visit Diagnoses Not on filedocumented in this encounter Additional Health Concerns Infection Onset Date Last Indicated Resolved Time MRSA 04/16/2017 04/16/2017 COVID-19 Rule Out 05/09/2021 05/09/2021 05/10/2021 12:31 PM CDT documented as of this encounter Care Teams Junior Qa Analyst Relationship Specialty Start Date End Date Shyam Lewis DO PCP - General 09/27/16 09/13/21 Valentín Mandel MD PCP - General FAMILY PRACTICE 09/14/21 documented as of this encounter
--- OUTSIDE RECORDS SUMMARY | 2025-01-13 10:19 | XMS_ITS | Clinical Summary ---
Author Organization [facility] Address [address] [place] [address] Care Team Providers Care Hot Molder Name Role Phone Valentín Mandel MD Primary [...] 06/23/2024 Tinnitus, unspecified laterality 07/22/2021 Other emphysema ([facility]) 05/25/2021 Shortness of breath 02/04/2021 Calcification of abdominal aorta 01/31/2021 Overview (01/31/2021): Noted on lumbar x-ray 09/16/20 Carotid atherosclerosis, unspecified laterality 01/31/2021 Overview (01/31/2021): Noted on CT 06/20/13 Mild mood disorder 05/25/2020 Depression, major 2015 Impaired fasting glucose 01/06/2015 Alcoholism ([facility]) 01/06/2015 Insomnia 01/06/2015 Chronic lower back pain 05/22/2014 Sciatica 10/22/2013 Arthralgia of left shoulder region 07/11/2013 Bipolar affective disorder ([facility]) 01/2013 Chronic GERD 02/12/2013 Essential familial hypercholesterolemia 02/13/20 13 Generalized osteoarthritis 02/12/2013 Peripheral retinal edema 02/12/2013 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 Message [employer] Business Office [address] [place] [phone] [facility] Provider Action Needed 10/20/2024 2:30 PM CAFETERIA WORKER Office Visit [facility] [address] [place] [address] Sahil Marcano Jr., DO Postop Followup (DOS: 08/11/2024 - RIGHT primary total hip arthroplasty, non-cemented, via a direct anterior approach)) 10/20/2024 Travel from Last 3 Months Immunizations Immunization Administration Dates Next Due Flublok (Quadrivalent) 05/25/2020,06/23/2019 [...] Sex Assigned at Female 10/20/2024 2:15 PM CAFETERIA WORKER Legal Sex Female 9:56 PM CDT Gender Identity Not on file Sexual Orientation Not on file Last Filed Vital Signs Vital Sign Reading Time Taken Comments Blood Pressure 117/52 08/11/2024 1:08 PM CAFETERIA WORKER Pulse 84 08/11/2024 1:08 PM CAFETERIA WORKER Temperature 35.9 C (96.6 F) 08/11/2024 1:08 PM CAFETERIA WORKER Respiratory Rate 16 08/11/2024 1:08 PM CAFETERIA WORKER Oxygen Saturation 100% 08/11/2024 1:08 PM CAFETERIA WORKER Inhaled Oxygen Concentration - - Weight 93.4 kg (206 lb) 10/20/2024 2:22 PM CAFETERIA WORKER Height 170.2 cm (5' 7 ) 10/20/2024 2:22 PM CAFETERIA WORKER Body Mass Index 32.26 10/20/2024 2:22 PM CAFETERIA WORKER Plan of Treatment Upcoming Encounters Date Type Department Care Team (Late st Contact Info) Description 08/17/2025 1:30 PM CAFETERIA WORKER Office Visit [facility] [address] [place] [phone] Sahil Marcano Jr., DO [address] [place] [address] Health Maintenance Due Date Last Done Comments Hepatitis C 1973 DTaP, Tdap and Td Vaccines (1 - Tdap) 1974 Lung Cancer Screening 2005 RSV Immunization or 60+ Years (1 - Risk 60-74 years 1-dose series) 2015 Colorectal Cancer Screening Colonoscopy (10 Years) 09/10/2017 09/10/2007 ASCVD LDL 06/07/2021 06/07/2020, 08/0 02/2019, 04/09/2018, Additional history exists Annual Medicare Wellness Visit 05/26/2022 05/25/2021 COVID-19 Vaccine ( season) 2024 06/22/2021, 06/22/2021, 11/12/2020, Additional history exists Pneumococcal Vaccine: 50+ Years (3 of 3 - PCV20 or PCV21) 05/25/2025 05/25/2020, 05/28/2015 Mammogram Screening 07/27/2025 07/27/2023, 12/26/2021, 12/24/2020, Additional history exists Zoster Vaccines Completed 07/12/2022, 01/24/2022 Dexa Scan (General) Completed 05/19/2024, 2 Meningococcal B Vaccine Aged Out No l onger eligible based on patient's age to complete this topic Meningococcal Vaccine Aged Out No saida mariah eligible based on patient's age to complete this topic RSV Immunizations Under 20 Months Aged Out No longer eligible based on patient's age to complete this topic Goals Goal Patient Goal Type Associated Problems Recent Progress Patient-Stated? Author Autogenerat ed Goal Care Plan Autogenerated Problem No Fabi Riley, RN Medical Devices Implanted Type Area Switchboard Manager Device Identifier Shelf Expiration Date Model / Serial / Lot Shell Acetabular Zayra [employer] Osseoti G7 4 Hole 56mm F - [id number] Implanted:Qty: 1 on 08/11/2024 by Sahil Marcano Jr. DO at [facility] Hip Components Right: Hip [employer] [id number] 04/05/2034 [id number] / / [id number] Stem Femoral Collar Avenir Complete 6 Standard Hip Sterile Latex Free - [id number] Implanted:Qty: 1 on 08/11/2024 by Sahil Marcano Jr., DO at [facility] [employer] Components Right: Hip [employer] [id number] 12/16/2028 [id number] / / [id number] Dual Mobility Acetabular System 44mm Bearing Size Liner Size F Neutral Acetabular Liner Co-Cr-Mo Implanted:Qty: 1 on 08/11/2024 by Sahil Marcano Jr., DO at [facility] Right: Hip [employer] [id number] 02/19/2034 [id number] / / [id number] Biolox Option Ceramic Femoral Head Implanted:Qty: 1 on 08/11/2024 by Sahil Marcano Jr., DO at [facility] Right: Hip [employer] [id number] 03/19/2034 [id number] -02 / / [id number] Dual Mobility Vivacit-E Vitamin E Highly Crosslinked Polyethylene Implanted:Qty: 1 on 08/11/2024 by Sahil Marcano Jr., DO at [facility] Right: Hip [employer] [id number] 02/04/2029 [id number] / / [id number] Procedures Procedure Name Priority Date/Time Associated Diagnosis Comments MG SCREENING W ADRIANNA NORM DIGI Routine 12/24/2020 12:17 PM CDT Encounter for screening mammogram for malignant neoplasm of breast LIPID PANEL Routine 06/07/2020 9:59 AM CDT Essential familial hypercholesterolemia Encounter For Preventive Health Examination COLONOSCOPY Routine 09/10/2007 12:00 AM CAFETERIA WORKER from Last 3 Months or Most Recently [...] AM CDT EXAMINATION: MG SCREENING W ADRIANNA PAUL INDICATIONS: Screening TECHNIQUE: Digital full field CC [...] distortion or developing asymmetry. No axillary adenopathy. Denton Maldonado MD MAMMO Final Result * (ABNORMAL) LIPID PANEL (06/07/2020 9:59 AM CDT) Pathologist [facility] CHOLESTEROL 202(H) 0 - 199 MG/DL [facility] TRIGLYCERIDES 156(H) 0 - 149 MG/DL [facility] HDL 49(L) 50 - 240 MG/DL [facility] LDL (CALCULATED) 122(H) 0 - 99 MG/DL [facility] CHOL/HDL RATIO 4.[address] [facility] NON HDL CHOLESTEROL 153(H) 0 - 129 MG/DL [facility] Comment: FOR AGES >=20 YEARS (MG/DL) .................IDEAL....ELEVATED....BORDERLINE......HIGH.....VERY HIGH CHOL*........<200.......................................200-239....>=240 TRIG...........<150.....................150-199......200-499....>=500 LDL-C.......<100...100-129.....130-159......160-189....>=190 NONHDL-C.<130...130-159.....160-189......190-219....>=220 IRVIN TA, ET AL. NATIONAL LIPID ASSOCIATION RECOMMENDATIONS FOR PATIENT-CENTERED MANAGEMENT OF DYSLIPIDEMIA: PART 1-FULL REPORT. J CLIN LIPIDOL 2015;129-169. *THIRD REPORT OF THE NATIONAL CHOLESTEROL EDUCATION PROGRAM (NCEP) EXPERT PANEL ON DETECTION, EDUCATION, AND TREATMENT OF HIGH BLOOD CHOLESTEROL IN ADULTS (ADULT TREATMENT PANEL III): FINAL REPORT. CIRCULATION 2002; 106:3143. 06/07/2020 9:59 AM CDT 06/08/2020 5:20 AM CDT [facility] - 06/08/2020 6:49 AM CDT REPORT: [id number] IS PATIENT FASTING?->YES Shyam Lewis DO LABORATORY Final Resul t [employer] [address] [place] [address], * Colonoscopy (09/10/2007 12:00 AM CAFETERIA WORKER) 09/10/2007 09/10/2007 Narrative [facility] TO EPIC CONVERSION - 09/10/2007 12:00 AM CAFETERIA WORKER Documented hx of procedure Procedure Note Dipak Stratton MD - 07/14/2018 Documented hx of procedure Generic Yasmani Stratton MD GI PROCEDURE ORDERABLES Final Result [facility] TO EPIC CONVERSION from Last 3 Months or Most Recently Relevant to Health Maintenance Additional Health Concerns Active Problems Noted Date Diagnosed Date Autogenerated Problem 01/09/2025 Infection Onset Date Last Indicated MRSA 04/16/2017 04/16/2017 Insurance [facility] Care Teams Hot Molder Relationship Specialty Start Date End Date Valentín Mandel MD PCP - General FAMILY PRACTICE 09/14/21
--- OUTSIDE RECORDS SUMMARY | 2025-01-13 10:19 | XMS_ITS | Referral Summary ---
Author Organization [facility] Address [address] [place] [address] Care Team Providers Care Canoe Builder Name Role Phone Clem Suggs MD Unavailable Valentín Mandel MD Primary Care Provi desiree Encounters Date Type Department Care Team Description 01/05/2025 Telephone [facility] Family Medicine [address] [facility] [place] [phone] Valentín Mandel MD Medical Question/Miscellaneous 12/23/2024 Telephone [facility] Family Medicine [address] [facility] [address] [facility] [place] [phone] Valentín Mandel MD Call Back 12/23/2024 Orders Only [facility] Medicine [address] [facility] [place] [phone] ProviderManolo MD 12/12/2024 Letter (Out) [facility] Family Medicine [address] [facility] [place] [phone] 12/12/2024 9:00 AM CDT Telemedicine [facility] Family Medicine [address] [facility] [place] [phone] Valentín Mandel MD Essential familial hypercholesterolemia (Primary Dx); Breast cancer screening by mammogram; Bipolar depression (HCC); Panlobular emphysema (HCC); Alcoholism (HCC) 12/09/2024 Orders Only [facility] Family [facility] [address] [place] [address] Valentín Mandel MD 12/02/2024 Telephone [facility] [address] [place] [address] Valentín Mandel MD Additional Services Or Orders 11/10/2024 Nurse Triage [facility] [address] [facility] [place] [phone] Valentín Mandel MD 10/28/2024 Telephone [facility] [address] [phone] Valentín Mandel MD Med Refill 10/26/2024 Results Follow-Up [facility] [address] [phone] Valentín Mandel MD Encounter for colorectal cancer screening (Primary Dx) from Last 3 Months Allergies Active Allergy [...] 30 tablet 5 5 11/11/19 26 Active traZODone (DESYREL) 150 mg tablet Take [...] times a day 60 tablet 5 5 02/08/20 25 Active oxyCODONE-aceta minophen (PERCOCET) 10-325 mg per tabletIndicatio ns:Pain Take 1 tablet by mouth every 6 (six) hours as needed for pain 78 tablet 5 01/01/20 25 Discontinu ed(Reorder ) clonazePAM (KlonoPIN) 0.5 mg tablet Take 1 tablet (0.5 mg total) by mouth 2 (two) times a day 60 tablet 5 5 01/09/20 25 Discontinu ed(Reorder ) Active Problems Problem [...] on file Legal Sex Female 5:33 PM TRIP RIDER Gender Identity Female 09/11/2024 10:09 AM TRIP RIDER Sexual Orientation Straight 09/11/2024 10 :09 AM TRIP RIDER Last Filed Vital Signs Vital Sign Reading Time Taken Comments Blood Pressure 132/68 10/10/2024 3:06 PM TRIP RIDER Pulse 68 10/10/2024 3:06 PM TRIP RIDER Temperature 36.7 C (98 F) 10/10/2024 3:06 PM TRIP RIDER Respiratory Rate 20 10/10/2024 3:06 PM TRIP RIDER Oxygen Saturation 98% 10/10/2024 3:06 PM TRIP RIDER Inhaled Oxygen Concentration - - Weight 93.9 kg (207 lb) 10/10/2024 3:06 PM TRIP RIDER Height 165.1 cm (5' 5 ) 09/11/2024 11:19 AM TRIP RIDER Body Mass Index 34.45 09/11/2024 11:19 AM TRIP RIDER Plan of Treatment Not on file Medical Devices Implanted Type Area Air Drill Operator Device Identifier Shelf Expiration Date Model / Serial / Lot [employer] Raven 54mm 36mm Hip Neutral Liner Acetabular Altrx Sterile Latex Free [id number] - [id number] Implanted:Qty: 1 on 10/09/2022 by Clem Suggs MD at [facility] Left: Hip [employer] 08/09/2027 [id number] / / [id number] [employer] Raven 54mm Sector Hip Shell Acetabular Gription Sterile Latex Free [id number] - [id number] Implanted:Qty: 1 on 10/09/2022 by Clem Suggs MD at [facility] Left: Hip [employer] 07/10/2032 [id number] / / [id number] [employer] Raven 6.5mm 35mm Acetabular Cancellous Screw Bone Sterile 1217-35-500 - [id number] Implanted:Qty: 1 on 10/09/2022 by Clem Suggs MD at [facility] Left: Hip [employer] 04/09/2032 [id number] / / [id number] [employer] Actis Collar Hip 7 High Offset Stem Femoral [id number] - [id number] Implanted:Qty: 1 on 10/09/2022 by Clem Suggs MD at [facility] Left: Hip [employer] 04/09/2032 [id number] / / [id number] [employer] Articul/Viet 36mm Cementless Hip +1.5mm 08/23 Taper Head Femoral Latex Free [id number] - [id number] Implanted:Qty: 1 on 10/09/2022 by Clem Suggs MD at [facility] Left: Hip [employer] 09/09/2027 [id number] / / [id number] Procedures Procedure Name Priority Date/Time Associated Diagnosis Comments SCREENING MAMMOGRAM BILATERAL W JOE Schedule Routine, Read Routine (OP Routine) 12/23/2024 2:00 PM CDT SCAN - LABS Routine 12/08/2024 STOOL DNA COLOGUARD Routine 10/23/2024 8:55 AM TRIP RIDER Colon cancer screening DEXA AXIAL SKELETON BONE DENSITY 1 OR MORE SITES Schedule Routine, Read Routine (OP Routine) 05/19/2024 11:38 AM CDT Postmenopausal from Last 3 Months or Most Recently Relevant to Health Maintenance Results * Screening Mammogram Bilateral W Joe (12/23/2024 2:00 PM CDT) Anatomical Region Laterality Modality Breast Bilateral Mammography us Historical Provider IMG MAMMO PROCEDURES Dai l Result * SCAN - LABS (12/08/2024) us Historical Provider Final Res ult [address] [address], [facility] [phone] * Stool DNA - Cologuard (10/23/2024 8:55 AM TRIP RIDER) Stool DNA - Cologuard Negative Negative [facility] (CLIA #:[id number]) Comment: NEGATIVE TEST RESULT. A negative Cologuard [...] (Diego Bauer al, N Engl J Med 2014;370(14):6312-1033) The normal value (reference range) for this assay is negative. COLOGUARD RE-SCREENING RECOMMENDATION: Periodic colorectal cancer screening is an important part of preventive healthcare for asymptomatic individuals at average risk for colorectal cancer. Following a negative Cologuard result, the [employer] Cancer Society and U.S. Multi-Society Task Force screening guidelines recommend a Cologuard re-screening interval of 3 years. References: [place] Cancer Society Guideline for Colorectal Cancer Screening: https://www.cancer.org/cancer/wptky-tembcx-pexoji/sqlyoquck-focotcosh-iyilxdf/ac s-rec ommendations.html.; Larry DK, Joshua MOISE, Tom JonesK, Colorectal Cancer Screening: Recommendations for Physicians and Patients from the U.S. Multi-Society Task Force on Colorectal Cancer Screening , Am J Gastroenterology 2017; 112:4016-2575. TEST DESCRIPTION: Composite algorithmic analysis of stool [...] (Diego Bauer al, N Engl J Med 2014;370(14):7585-7582.) Cologuard may produce a false negative or false positive result (no colorectal cancer or precancerous polyp present at colonoscopy follow up). A negative Cologuard test result does not guarantee the absence of CRC or advanced adenoma (pre-cancer). The current Cologuard screening interval is every 3 years. ([employer] Cancer Society and U.S. Multi-Society Task Force). Cologuard performance data in a 10,000 patient pivotal study using colonoscopy as the reference method can be accessed at the following location: www.ShopSavvy/results. Additional description of the Cologuard test process, warnings and precautions can be found at www.Hittite Microwaveoguard.com. Stool 10/23/2024 8:55 AM TRIP RIDER 11/20/2024 9:49 AM CDT Valentín Mandel MD LAB BODY FLUIDS AND STOOLS ORDERABLES Final Result [facility] (CLIA #:[id number]) [address] [place] [address] * Dexa Axial Skeleton Bone Density 1 Or 2 Site (05/19/2024 11:38 AM CDT) Anatomical Region Laterality Modality Body N/A Radiographic Krissy ging Valentín Mandel MD IMG DXA PROCEDURES Final Result from Last 3 Months or Most Recently Relevant to Health Maintenance Insurance [facility] MED[facility] ADVANTAGE MEDICARE ADVANTAGE MEDICARE ADVANTAGE [facility] ADV[facility]AGE Advance Directives For more information, please contact: [phone] * Full Code (Latest Code Status on File) Date Activated Date Inactivated Comments 10/09/2022 5:02 PM 10/11/2022 8:58 PM Care Teams Canoe Builder Relationship Specialty Start Date End Date Valentín Mandel MD [address] [facility] [address] [place] [address] PCP - General Family Medicine 05/03/23 Clem Suggs MD [address] [place] [address] Surgeon Orthopedic Surgery 10/10/22
--- OUTSIDE RECORDS SUMMARY | 2025-01-13 10:19 | XMS_ITS | Encounter Summary ---
Author Organization [facility] Address [address] [place] [address] Care Team Providers Care Scarfing Machine Operator Name Role Phone Valentín Mandel MD Primary Care Provider Encounter Details Date Type Department Care Team (Late Contact Info) Description 06/23/2024 [place] [address] Malinda Nicholson, [facility] [address] [facility] [place] [address] Visit Follow Up Social History Tobacco Use [...] Sex Assigned at Female 10/20/2024 2:15 PM GLASSIE Legal Sex Female 9:56 PM CDT Gender Identity Not on file Sexual Orientation Not on file documented as of this encounter Plan of Treatment Upcoming Encounters Date Type Department Care Team (Late Contact Info) Description 08/17/2025 1:30 PM GLASSIE Office Visit [address] [place] [address] Sahil Marcano Jr., DO [address] [place] [phone] documented as of this encounter Visit Diagnoses Not on filedocumented in this encounter Additional Health Concerns Infection Onset Date Last Indicated Resolved Time 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
--- OUTSIDE RECORDS SUMMARY | 2025-01-13 10:19 | XMS_ITS | Encounter Summary ---
Author Organization [facility] Healthcare Address [address] [place] [address] Care Team Providers Care Icd 9 Coder Name Role Phone Clem Suggs MD Unavailable Valentín Mandel MD Primary Care Provi desiree Reason for Visit * Reason Onset Date Comments Medical Question/Miscellaneous 01/05/2025 Encounter Details Date Type Department Care Team (Late st Contact Info) Description 01/05/2025 Telephone [facility] Medical Group Family Medicine [address] [place] [address] Valentín Mandel MD [address] [facility] [address] [address] [place] [address] Medical Question/Miscellaneou s Social History Tobacco Use Types Packs/Day Years Used Date Smoking Tobacco: Former Cigarettes 1 48.5 0 03/10/1973 - 09/25/2021 Vaping Smokeless Tobacco: Current Comments:I quit smoking ciga rettes 09/25/2020. Alcohol Use Standard Drinks/Week Comments Yes [...] on file Legal Sex Female 5:33 PM SLATE ROOFER Gender Identity Female 09/11/2024 10:09 AM SLATE ROOFER Sexual Orientation Straight 09/11/2024 10 :09 AM SLATE ROOFER documented as of this encounter Miscellaneous Notes * Telephone Encounter - Dmitry Ford - 01/05/2025 8:45 AM CDT Medical Question/Miscellaneous Caller???s Concern: Kymberly stating she had a voicemail she missed from Sunday. ENTERTAINMENT & MEDIA CORRESPONDENT did not locate any reason for all on Sunday, please reach out to pt if need be. Pt asked if her pain medication was called in, ENTERTAINMENT & MEDIA CORRESPONDENT confirmed was sent to [facility] on 12/31/24 Does message need to be routed? Yes-FYI Only documented in this encounter Plan of Treatment Not on file documented as of this encounter Visit Diagnoses Not on filedocumented in this encounter Care Teams Icd 9 Coder Relationship Specialty Start Date End Date Valentín Mandel MD [address] [place] [address] PCP - General Family Medicine 05/03/23 Clem Suggs MD [address] [facility] [address] [address] Surgeon Orthopedic Surgery 10/10/22 documented as of this encounter
--- OUTSIDE RECORDS SUMMARY | 2025-01-13 10:19 | XMS_ITS | Data Portability ---
Author Organization [employer] [facility] Address [address] [place] [address] Assessment No assessment recorded. Plan of Treatment Reminders Order Date Submit Date Provider Last Modified By Organization Details Last Modified Time Details Appointments None record ed. Lab None record ed. Referral None record ed. Procedures None record ed. Surgeries None record ed. Imaging None record ed. Medication Orders None record ed. Patient TargetsNo targets recorded. Patient Instructions Encounter Date Encounter Id Patient Instructions Last Modified By Organization Details Last Modified Time 08/01/2021 [id number] eating healthy foods: care instructions [email or web address] Not available 08/01/2021 15:23:25 weight management education [facility] Not available 08/01/2021 15:23:25 Discussed guidelines for Pap Smear and importance of annual exam. Rec weight baring exercise and Calcium and Vit D [facility] Not available 08/01/2021 15:22:45 Reason for Referral None Reported. Problems Name Problem SNOMED Code Status Onset Date Resolution Date Notes Provider Name and Address Organization Details Recorded Time Sampling of vagina for Papanicola ou smear Active 2018 Encounter for gynecologic al examination (general) (routine) without abnormal findings; Progress: Stable Added By: Анна Maldonado Add to Current Problems: YES ProblemStat us: Current Not Available [employer] 2 14:16:40 Screening for malignant neoplasm of cervix Active 2018 Encounter for screening for malignant neoplasm of cervix; Progress: Stable Added By: Анна Maldonado Add to Current Problems: YES ProblemStat us: Current Not Available [employer] 2 07:46:43 Problem Notes None recorded. Procedures Surgical History Date Name Laterality Status Provider Name and Address Organization Details Recorded Time Most Recent Mammogram completed Melissa Freeman [facility] 08/01/2021 12:34:22 9 Date [facility] 11:04:45 6 [facility] bilateral fall[facility] tubes [facility] 11:06:13 Imaging Results None recorded. Procedure Notes None recorded. Medical Equipment None Reported. Allergies No known drug allergies Medications Name Sig Start Date Stop Date Status Note LastModified by Organization Details LastModified Time trazodone 50 mg tablet 08/01 completed Trazodone HCl Allow Substitut ion: True Refill Denied: No Refill DateOccur red: 8 Not Available Not Available Not Available aspirin 325 mg tablet 08/01 completed Aspirin (ASA) Allow Substitut ion: True Refill Denied: No Refill DateOccur red: 8 Not Available Not Available Not Available tizanidine 4 mg tablet 08/01 completed Not Available Not Available Not Available acetaminop hen 300 mg-codeine 30 mg tablet active Not Available Not Available Not Available tramadol 50 mg tablet 08/01 completed Not Available Not Available Not Available meloxicam 7.5 mg tablet active Not Available Not Available Not Available ziprasidon e 20 mg capsule Take 1 capsul e(s) by mouth bid with food 08/01 completed Ziprasido ne 80mg Capsules RxNorm: 219200 Allow Substitut ion: True Refill Denied: No Refill DateOccur red: 9 Not Available Not Available Not Available methocarba mol 750 mg tablet active Not Available Not Available Not Available trazodone 100 mg tablet 2017 active Trazodone HCl Allow Substitut ion: True Refill Denied: No Refill DateOccur red: 8 Not Available Not Available Not Available benzonatat e 100 mg capsule 08/01 completed Not Available Not Available Not Available trazodone 150 mg tablet 08/01 completed Not Available Not Available Not Available gabapentin 300 mg capsule active Not Available Not Available Not Available aspirin 81 mg chewable tablet 2017 active Aspirin (ASA) Allow Substitut ion: True Refill Denied: No Refill DateOccur red: 8 Not Available Not Available Not Available furosemide 20 mg tablet 08/01 completed Not Available Not Available Not Available bupropion HCl XL 150 mg 24 hr tablet, extended release active Not Available Not Available Not Available Aleve 08/01 completed Aleve Allow Substitut ion: True Refill Denied: No Refill DateOccur red: 8 Not Available Not Available Not Available estradiol 10/04 completed Estradiol Allow Substitut ion: True Refill Denied: No Refill DateOccur red: 8 Not Available Not Available Not Available oxybutynin chloride 10/04 completed Oxybutyni n Chloride Allow Substitut ion: True Refill Denied: No Refill DateOccur red: 8 Not Available Not Available Not Available tramadol 10/04 completed Tramadol Allow Substitut ion: True Refill Denied: No Refill DateOccur red: 8 Not Available Not Available Not Available Prometrium 10/04 completed Prometriu m Allow Substitut ion: True Refill Denied: No Refill DateOccur red: 8 Not Available Not Available Not Available bupropion HCl 08/01 completed Bupropion HCl Allow Substitut ion: True Refill Denied: No Refill DateOccur red: 8 Not Available Not Available Not Available escitalopr am oxalate 12/04 completed Escitalop albin Oxalate RxNorm: 202440 Allow Substitut ion: True Refill Denied: No Refill DateOccur red: 8 Not Available Not Available Not Available Multivitam ins 2018 active Multivita mins RxNorm: 0 Allow Substitut ion: True Refill Denied: No Refill DateOccur red: 9 Not Available Not Available Not Available Myrbetriq 10/04 completed Myrbetriq Allow Substitut ion: True Refill Denied: No Refill DateOccur red: 8 Not Available Not Available Not Available Breo Ellipta 100 mcg-25 mcg/dose powder for inhalation 08/01 completed Not Available Not Available Not Available Breo Ellipta 200 mcg-25 mcg/dose powder for inhalation active Not Available Not Available N ot Available bupropion HCl 150 mg tablet,12 hr sustained- release(sm oking deterrent) 08/01 completed Not Available Not Available Not Available Vitals Date Recorded Body weight Body mass index (BMI) Body height Systolic blood pressure Diastolic blood pressure Provider Name and Address Organization Details Last Updated DateTime 08/01/2021 57495.14 g 34.1 kg/m2 170.18 cm 118 mm[Hg] 64 mm[Hg] Melissa Freeman [employer] 12:29:50 Social History Question Answer Notes LastModified by Organizat ion Details LastModified Time Tobacco Smoking Status Current Every Day Smoker Melissa Freeman [facility], [employer] [facility] 08/01/2021 12:35:59 What Is Your Level Of Alcohol Consumption? Occasional Information not available 08/01/2021 What Is Your Relationship Status? Information not available 08/01/2021 Are You Sexually Active? No Information not available 08/01/2021 How Much Tobacco Do You Smoke? 1 PPD Information not available 08/01/2021 Do You Use Any Illicit Or Recreational Drugs? No Information not available 08/01/2021 Sex: Unknown Functional Status Question Answer Note LastModified by Organization D etails LastModified Time What is your exercise level? None Information not available 08/01/2021 Mental Status None recorded. Family History Relationship Description Onset Age of this Age Resolved Age Notes LastModified by Organization Details LastModified Time Father Malignant hypertension [email or web address] Not available 11:06:56 Maternal Grandmother Malignant tumor of breast [email or web address] Not available 08/01 11:07:04 Medical History Condition Response Other Cancer N High Blood Pressure N Colon Cancer N Cytomegalovirus N Hyperthyroidism N Herpes (HSV) N Breast Cancer N Blood Transfusion N MRSA N Lung Cancer N Hypothyroidism N Depression N Incontinence N Panic Attacks N Neurological Disorder N Deep Vein Thrombosis N Anxiety Disorder N Autoimmune disease N Arthritis N Tuberculosis/Positive PPD N Shingles N Polycystic Ovarian Syndrome N Cervical Cancer N Chlamydia N Hematuria N Stroke N Varicosities N Crohn's Disease N Seasonal allergies N Alzheimer's/Dementia N COPD/Emphysema N HPV/Genital Warts N Endometriosis N IBS (Irritable Bowel Syndrome) N History of Abnormal Pap N High Cholesterol N Liver Disease N Kidney Infection N Fibromyalgia N Ulcer N Kidney Disease N HIV N Gallbladder disease N Sickle Cell Disease/Trait N Von Willebrand disease N ADD/ADHD N Eating Disorder N Anemia N Diabetes Mellitus (non-insulin dependent ) N Ovarian Problems N Multiple Sclerosis N Gonorrhea N Frequent Urinary Tract infections N Osteopenia N Headaches/migraines N GERD (reflux) N Ovarian Cancer N Diabetes (insulin dependent) N Seizures/Epilepsy N Fibroids N Heart Attack N Asthma N Lupus N Endometrial Cancer N Rubella N Blood Clotting Disorder N Bipolar Disorder Y Diabetes Mellitus (during ) N Ulcerative Colitis N Hepatitis N Heart Disease N Pulmonary Embolism N RPR N Chicken Pox N Osteoporosis N Gynecological History Statement/Question Response HPV Vaccine N Date of Last Pap Smear 12/04/2018 Most Recent Mammogram 12/28/2020 Current Control Method Tubal Ligat ion Obstetrics History GPAL:G 3 P 2 0 1 2 Type Value Full Term 2 Spontaneous 1 Living 2 Total 3 Immunizations Vaccine Type Date Status Note Provider Nam e and Address Organization Details Recorded Time SARS-COV-2 (COVID-19) vaccine, UNSPECIFIED 06/22/2021 completed [facility] 08/01/2021 12:33:43 Past Encounters Encounter ID Performer Location Encounter Start Date Encounter Closed Date Diagnosis/Indication Diagnosis SNOMED-CT Code Diagnosis ICD10 Code Diagnosis Note [id number] Dara Vanegas is, [facility] [address] [place] [address] 08/01/2021 11:38:27 08/01/2021 15:26:03 Gynecologic examination 63696204 Z01.419 Health Concerns Section Related Observation LastModified by Organization Detai ls LastModified Time None Recorded Concern Status LastModified by Organization Details LastModified Time None Recorded Advance Directives Directive None Recorded Payers Encounter Date Sequence Insurance Name Policy Number Policy Cazares Covered Member ID Cazares Member ID Guarantor Name 08/01/2021 1 [facility] (MEDICARE REPLACEMENT HMO) [id number] Kymberly Dumont Osullivan [id number] Kymberly Dumont 08/01/2021 2 [place] Kymberly Osullivan [id number] Kymberly Osullivan Notes Date Note Type Note Provider Name and Address Organization Details Recorded Time 08/01/2021 text/html This patient is {{new established* a previously established}} patient. She {{admits denies*}} significant gynecological concerns. Menstrual History: She {{does does not*}} get a menses. Pap History: The patient {{is is not*}} due for a pap smear. Her last pap smear was 12/04/2018 Breast History: She {{admits to denies*}} breast symptoms. She performs breast exams: {{never regularly o ccasionally*}}. Her last mammogram was {{never within the last year 1 year ago 2 years ago >3 years ago 12/28/2020#}}. The results were {{normal* abnormal and the proper follow up was done abnormal and the proper follow up was not done}}. Dara Garsia, [employer] [address] [facility], [place], [address], [facility] 08/01/2021 15:23:34 OBGyn Episode No OBEpisode recorded.
--- OUTSIDE RECORDS SUMMARY | 2025-01-13 10:19 | XMS_ITS | Clinical Summary ---
Author Organization [facility] Address [address] [place] [address] Care Team Providers Care Cut Off Machine Operator Name Role Phone Clem Suggs MD Unavailable [phone] Valentín Mandel MD Primary Care Provi desiree [...] Type Department Care Team Description 01/05/2025 Telephone [facility] [address] [facility] [address] [place] [phone] Valentín Mandel MD Medical Question/Miscellaneous 12/23/2024 Telephone [facility] [address] [place] [phone] Valentín Mandel MD Call Back 12/23/2024 Orders Only [facility] [address] [place] [address] [place] [phone] ProviderManolo MD 12/12/2024 9:00 AM CDT Telemedicine [facility] [address] [facility] [address] [place] [phone] Valentín Mandel MD Essential familial hypercholesterolemia (Primary Dx); Breast cancer screening by mammogram; Bipolar depression (HCC); Panlobular emphysema (HCC); Alcoholism (HCC) 12/12/2024 Letter (Out) [facility] [address] [facility] [address] [place] [phone] 12/09/2024 Orders Only [facility] [address] [phone] Valentín Mandel MD 12/02/[address] [phone] Valentín Mandel MD Additional Services Or Orders 11/10/2024 Nurse Triage [address] [phone] Valentín Mandel MD 10/28/[address] [phone] Valentín Mandel MD Med Refill 10/26/2024 Results Follow-Up [address] [phone] Valentín Mandel MD Encounter for colorectal cancer screening (Primary Dx) from Last 3 Months Immunizations Immunization Administration [...] reflux disease) 03/2024 Alcohol abuse 1994 Anxiety 2015? Family History Medical History Relation Name Comments No Known Problems Brother 1 Alcohol abuse Father Luis Oquendo Heart disease Father Luis Oquendo Hypertension Father Luis Oquendo Breast cancer Maternal Grandmother Gout Mother Homer Armandokopf Heart disease Mother Homer Musk[place] Hypertension Mother Dana Muskopf Stroke Mother Dana Muskopf No Known Problems Other 2 children No Known Problems Sister 1 No Known Problems Sister 2 Relation Name Status Comments Brother 1 Alive Brother 2 Sucide Father Luis Oquendo Maternal Grandmother Mother Dana Tejedapaaron Other 2 children Alive Sister 1 Alive [...] on file Legal Sex Female 5:33 PM TELEPHONE ORDER CLERK Gender Identity Female 09/11/2024 10:09 AM TELEPHONE ORDER CLERK Sexual Orientation Straight 09/11/2024 10 :09 AM TELEPHONE ORDER CLERK Obstetrics History Para Term AB IAB SAB Ectopic Multiple Livin g Live Births 2 2 2 Date Outcome GA Total Labor Labor/2nd/3rd Weight Sex Type Anes PTL Cathie A1 A5 Name Clin Term Term Last Filed Vital Signs Vital Sign Reading Time Taken Comments Blood Pressure 132/68 10/10/2024 3:06 PM TELEPHONE ORDER CLERK Pulse 68 10/10/2024 3:06 PM TELEPHONE ORDER CLERK Temperature 36.7 C (98 F) 10/10/2024 3:06 PM TELEPHONE ORDER CLERK Respiratory Rate 20 10/10/2024 3:06 PM TELEPHONE ORDER CLERK Oxygen Saturation 98% 10/10/2024 3:06 PM TELEPHONE ORDER CLERK Inhaled Oxygen Concentration - - Weight 93.9 kg (207 lb) 10/10/2024 3:06 PM TELEPHONE ORDER CLERK Height 165.1 cm (5' 5 ) 09/11/2024 11:19 AM TELEPHONE ORDER CLERK Body Mass Index 34.45 09/11/2024 11:19 AM TELEPHONE ORDER CLERK Plan of Treatment Health Maintenance Due Date Last Done Comments Hepatitis C Screening 1955 DTaP/Tdap/Td Vaccine (1 - Tdap) 1966 Hepatitis B Screening 1973 Lung Cancer Screening 2005 Covid-19 Vaccine ( season) 2025 08/07/2023, 07/11/2022, [...] 12/12/2024, 04/0 12/2024, 07/03/2023, Additional history exists Breast Cancer Screening-Mammogram 12/23/2025 12/23/2024, 07/27/2023, 07/27/2023, Additional history exists Osteoporosis Screening-Bone Density Scan 05/19/2026 05/19/2024, 12/26/2021 Colon Cancer Screening-DNA Stool 10/23/2027 10/23/2024, 08/01/2024, 08/12/2021, Additional history exists Zoster Vaccine Completed 07/12/2022, 01/24/2022 Influenza Vaccine Completed 07/14/2024, , 06/14/2022, Additional history exists Colon Cancer Screening-FIT Discontinued 10/23, 08/01/2024, 08/12/2021, Additional history exists Medical Devices Implanted Type Area Mixer Operator Raw Salt Device Identifier Shelf Expiration Date Model / Serial / Lot Dep [employer] Orient 54mm 36mm Hip Neutral Liner Acetabular Altrx Sterile Latex Free [id number] - [id number] Implanted:Qty: 1 on 10/09/2022 by Clem Suggs MD at [facility] Left: Hip [employer] 08/09/2027 [id number] / / [id number] [employer] Orient 54mm Sector Hip Shell Acetabular Gription Sterile Latex Free [id number] - [id number] Implanted:Qty: 1 on 10/09/2022 by Clem Suggs MD at [facility] Left: Hip [employer] 07/10/2032 [id number] / / [id number] [employer] Orient 6.5mm 35mm Acetabular Cancellous Screw Bone Sterile 1217-35-500 - [id number] Implanted:Qty: 1 on 10/09/2022 by Clem Suggs MD at [facility] Left: Hip [employer] 04/09/2032 1217-35-500 / / [id number] [employer] Actis Collar Hip 7 High Offset Stem Femoral [id number] - [id number] Implanted:Qty: 1 on 10/09/2022 by Clem Suggs MD at [facility] Left: Hip [employer] 04/09/2032 [id number] / / [id number] [employer] Articul/Viet 36mm Cementless Hip +1.5mm 12/14 Taper Head Femoral Latex Free [id number] - [id number] Implanted:Qty: 1 on 10/09/2022 by Clem Suggs MD at [facility] Left: Hip [employer] 09/09/2027 [id number] / / [id number] Procedures Procedure Name Priority Date/Time Associated Diagnosis Comments SCREENING MAMMOGRAM BILATERAL W JOE Schedule Routine, Read Routine (OP Routine) 12/23/2024 2:00 PM CDT SCAN - LABS Routine 12/08/2024 STOOL DNA COLOGUARD Routine 10/23/2024 8:55 AM TELEPHONE ORDER CLERK Colon cancer screening DEXA AXIAL SKELETON BONE [...] (12/08/2024) us Historical Provider Final Res ult Performing Organization Address City/State/[facility] Co de Phone Number [address] [phone] * Stool DNA - Cologuard (10/23/2024 8:55 AM TELEPHONE ORDER CLERK) Stool DNA - Cologuard Negative Negative [employer] (CLIA #:[id number]) Comment: NEGATIVE TEST RESULT. A negative Cologuard [...] Hawkins et al, N Engl J Med 2014;370(14):2870-4950) The normal value (reference range) for this assay is negative. COLOGUARD RE-SCREENING RECOMMENDATION: Periodic colorectal cancer screening is an important part of preventive healthcare for asymptomatic individuals at average risk for colorectal cancer. Following a negative Cologuard result, the [place] [employer] and U.S. Multi-Society Task Force screening guidelines recommend a Cologuard re-screening interval of 3 years. References: [place] [employer] Guideline for Colorectal Cancer Screening: https://www.cancer.org/cancer/orisz-zacavp-rwypax/vjfmyoote-rumkenkbd-jjzulyi/ac s-rec ommendations.html.; Larry DK, Joshua CR, Tom LERMA, Colorectal Cancer Screening: Recommendations for Physicians and Patients from the U.S. Multi-Society Task Force on Colorectal Cancer Screening , Am J Gastroenterology 2017; 112:3028-6791. TEST DESCRIPTION: Composite algorithmic analysis of stool [...] screened with both Cologuard and colonoscopy. (Diego Frederick. et al, N Engl J Med 2014;370(14):3463-5971.) Cologuard may produce a false negative or false positive result (no colorectal cancer or precancerous polyp present at colonoscopy follow up). A negative Cologuard test result does not guarantee the absence of CRC or advanced adenoma (pre-cancer). The current Cologuard screening interval is every 3 years. ([place] [employer] and U.S. Multi-Society Task Force). Cologuard performance data in a 10,000 patient pivotal study using colonoscopy as the reference method can be accessed at the following location: www.coUrbanize.com/results. Additional description of the Cologuard test process, warnings and precautions can be found at www.cologuard.com. Stool 10/23/2024 8:55 AM TELEPHONE ORDER CLERK 11/20/2024 9:49 AM CDT us Valentín Mandel MD LAB BODY FLUIDS AND STOOLS ORDERABLES Final Result [facility] [employer] (CLIA #:[id number]) [address] [place] [address] * Dexa Axial Skeleton Bone Density 1 Or 2 Site (05/19/2024 11:38 AM CDT) Anatomical Region Laterality Modality Body N/A Radiographic Krissy ging Valentín Mandel MD IMG DXA PROCEDURES Final Result from Last 3 Months or Most Recently Relevant to Health Maintenance Insurance UHC MEDICARE ADVANTAGE UHC MEDICARE ADVANTAGE [facility] MEDICARE ADVANTAGE [facility] MEDICARE ADVANTAGE Advance Directives For more information, please contact: [phone] * Full Code (Latest Code Status on File) Date Activated Date Inactivated Comments 10/09/2022 5:02 PM 10/11/2022 8:58 PM Care Teams Cut Off Machine Operator Relationship Specialty Start Date End Date Valentín Mandel MD [address] [facility] [address] [place] [address] PCP - General Family Medicine 05/03/23 Clem Suggs MD [address] [place] [address] [address] [address] Surgeon Orthopedic Surgery 10/10/22
--- OUTSIDE RECORDS SUMMARY | 2025-01-13 10:19 | XMS_ITS | Encounter Summary ---
Author Organization [facility] Address [address] [place] [address] Care Team Providers Care Public Space Attendant Name Role Phone Valentín Mandel MD Primary Care Provider Encounter Details Date Type Department Care Team (Late Contact Info) Description 11/19/2024 [employer] [facility] [address] [place] [phone] [place], [facility] Provider Action Needed Social History Tobacco Use [...] Sex Assigned at Female 10/20/2024 2:15 PM SALES EXEC Legal Sex Female 9:56 PM CDT Gender Identity Not on file Sexual Orientation Not on file documented as of this encounter Plan of Treatment Upcoming Encounters Date Type Department Care Team (Late Contact Info) Description 08/17/2025 1:30 PM SALES EXEC Office Visit [facility] [address] [address] Sahil Marcano Jr., DO [address] [place] [address] documented as of this encounter Visit Diagnoses Not on filedocumented in this encounter Additional Health Concerns Infection Onset Date Last Indicated Resolved Time MRSA 04/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
== END 2025-01-13 09:40 | disposition home or self-care (01) ==
LOC: CHSIMG 09:42
PROVIDERS: Visit Provider Family Medicine
DX: R92.8 Other abnormal and inconclusive findings on diagnostic imaging of breast (principal)
CPT/HCPCS: 77061; 77065; G0279

== ENCOUNTER 2025-05-19 15:06 | Outpatient (CLI) | payer MEDICARE, SELFPAY ==
--- OUTSIDE RECORDS SUMMARY | 2025-05-19 16:27 | XMS_ITS | Encounter Summary ---
Author Organization [facility] Address [address] [place] [address] Care Team Providers Care High School Guidance Counselor Name Role Phone Valentín Mandel MD Primary Care Provider Encounter Details Date Type Department Care Team (Late Contact Info) Description 11/19/2024 [facility] [address] [place] [address] [facility], [facility] Provider Action Needed Social History Tobacco [...] Sex Assigned at Female 10/20/2024 2:15 PM CHART PICKER Legal Sex Female 9:56 PM CDT Gender Identity Not on file Sexual Orientation Not on file documented as of this encounter Plan of Treatment Upcoming Encounters Date Type Department Care Team (Late Contact Info) Description 08/17/2025 1:30 PM CHART PICKER Office Visit [facility] [address] [address] Sahil Marcano Jr., DO [address] [place] [address] documented as of this encounter Visit Diagnoses Not on filedocumented in this encounter Additional Health Concerns Infection Onset Date Last Indicated Resolved Time MRSA 04/16/2017 04/16/2017 Assessment Noted Time PHQ-9 Depression Total Score: 2 05/25/20 21 11:41 AM CDT documented as of this encounter Care Teams High School Guidance Counselor Relationship Specialty Start Date End Date Valentín Mandel MD PCP - General FAMILY PRACTICE 09/14/21 documented as of this encounter
--- OUTSIDE RECORDS SUMMARY | 2025-05-19 16:27 | XMS_ITS | Patient Health Record ---
Author Organization [facility] Address [address] [place], [place] [id number] Care Team Providers Care Outboard Motorboat Operator Name Role Phone MARTIN Pillai Unavailable [phone] Reason For Referral No Information Plan Of Treatment No Information Insurance Providers Payer Name Payer Address Payer Phone Subscriber Number Group Number Insured Name Patient Relationship to Insured Coverage Start Date Coverage End Date [facility] [address] [id number] JUAN MIGUEL MALDONADO Self - patient is the insured
--- OUTSIDE RECORDS SUMMARY | 2025-05-19 16:27 | XMS_ITS | Clinical Summary ---
Author Organization [facility] Address [address] [place] [address] Care Team Providers Care Accounting Advisory Services Manager Name Role Phone Clem Suggs MD Unavailable [phone] Valentín Mandel MD Primary Care Provi desiree Allergies Active Allergy Reactions Criticality Noted Date Comments Sulfa Anaphylaxis High 05/29/2024 Medications multivitamin capsule Take 1 capsule by mouth daily Active aspirin 81 mg enteric coated tablet Take 1 tablet (81 mg total) by mouth daily Active rosuvastatin (CRESTOR) 20 mg tablet TAKE 1 TABLET BY MOUTH EVERY DAY 90 tablet 3 06/23/20 24 Active celecoxib (CeleBREX) 200 mg capsuleIndicat ions:Osteoarth ritis Take 1 capsule (200 mg total) by mouth daily 90 capsule 3 10/06/19 25 Active buPROPion XL (WELLBUTRIN XL) 150 mg 24 hr tablet Take 1 tablet (150 mg total) by mouth every morning 90 tablet 3 10/13/19 25 026 Active oxyCODONE-acet aminophen (PERCOCET) 10-325 mg per tabletIndicati ons:Pain Take 1 tablet by mouth every 6 (six) hours as needed for pain 78 tablet 04/03/20 25 Active Additional Information Patient not taking.Reported on 05/14/2025 primidone (MYSOLINE) 50 mg tabletIndicati ons:Essential tremor 1/4 tab qhs for 1 week, 1/2 tab po qhs for 1 week, 1/4 tab qam and 1/2 tab qhs for 1 week, 1/2 tab po bid for 1 week, 1/2 tab qam, 1 tab qhs for 1 week, then 1 tab bid 120 tablet 3 04/20/20 25 Active traZODone (DESYREL) 150 mg tabletIndicati ons:Primary insomnia Take 1 tablet (150 mg total) by mouth nightly 90 tablet 3 04/27/20 25 Active clonazePAM (KlonoPIN) 0.5 mg tablet Take 1 tablet (0.5 mg total) by mouth 2 (two) times a day 60 tablet 5 04/27/20 25 025 Active solifenacin (VESIcare) 5 mg tablet TAKE 1 TABLET (5 MG TOTAL) BY MOUTH DAILY. 90 tablet 3 04/28/20 25 026 Active ARIPiprazole (ABILIFY) 5 mg tabletIndicati ons:Bipolar Disorder TAKE 1 TABLET (5 MG TOTAL) BY MOUTH DAILY. 90 tablet 3 05/13/20 25 Active nitrofurantoin monohydrate (MACROBID) 100 mg capsule Take 1 capsule (100 mg total) by mouth 2 (two) times a day for 5 days 10 capsule 05/14/20 25 025 Active ARIPiprazole (ABILIFY) 5 mg tabletIndicati ons:Bipolar Disorder TAKE 1 TABLET (5 MG TOTAL) BY MOUTH DAILY. 90 tablet 3 04/11/20 24 025 Discontinued solifenacin (VESIcare) 5 mg tablet Take 1 tablet (5 mg total) by mouth daily 30 tablet 5 11/11/19 25 025 Discontinued traZODone (DESYREL) 150 mg tablet Take 1 tablet (150 mg total) by mouth nightly 10/10/19 25 025 Discontinued(R eorder) clonazePAM (KlonoPIN) 0.5 mg tablet Take 1 tablet (0.5 mg total) by mouth 2 (two) times a day 60 tablet 5 01/09/20 25 025 Discontinued(R eorder) Active Problems Problem Noted Date Diagnosed Date Acute febrile illness 05/14/2025 Adrenal mass, right 05/14/2025 Arthritis 05/14/2025 Bursitis 05/14/2025 Diverticulosis 05/14/2025 Edema 05/14/2025 Urinary tract infection 05/14/2025 Hiatal hernia 05/14/2025 Essential tremor 04/29/2025 History of right hip replacement 08/25/2024 Cigarette [...] Encounters Date Type Department Care Team Description 05/15/2025 Nurse Triage [facility] [address] [place] [address] Brandi Alvarado RN 05/14/2025 2:00 PM CDT Office Visit [facility] [address] [place] [address] Torsten Martinez PA Acute cystitis with hematuria (Primary Dx); Abdominal pain; Altered mental status, unspecified altered mental status type; Bilateral elbow joint pain; Chronic pain of both shoulders 04/20/2025 1:00 PM CDT Office Visit [facility] [address] [place] [address] [address] [address] Mark Arriaza MD Essential tremor (Primary Dx) 04/09/2025 Orders Only [facility] Health Information Management [address] [place] [address] Scanning, Provider from Last 3 Months Immunizations Immunization Administration Dates Next Due Influenza, Quad, Adjuvantate d, Intramuscular 05/29/2024(Deferred: Patient Refused),08/22/2023(Deferred: Patient Refused),11/08/2022(Deferred: Patient Refused),10/11/2022(Deferred: Patient Refused),10/11/2022(Deferred: Patient Refused) Influenza, Quadrivalent, Hig h Dose, Preservative Free, Intrr 05/14/2025(Deferred: Patient Refused),05/29/2024(Deferred: Patient Refused),07/03/2023,06/22/2021 Influenza, Quadrivalent, Rec ombinant, Egg Free, Preservative Free, Intramuscular 05/25/2020,06/23/2019 Influenza, Quadrivalent, Spl it, Preservative Free, Intramuscular 06/14/2022,07/19/2015 Influenza, Trivalent, High D ose, Split, Preservative Free, Intramuscular 07/14/2024 Influenza, Unspecified 05/29/2024(Deferr ed: Patient Refused),11/14/2023(Deferred: Patient Refused),11/11/2023(Deferred: Patient decision),11/11/2023(Deferred: Patient Refused),11/10/2022(Deferred: Patient Refused),06/22/2021,06/04/2018, 017,10/03/2016,07/21/2015,07/19/2015,1 09/10/2012,09/30/2012 Pfizer SARS-CoV-2 Monovalent Vaccination (12+ Yrs) PURPLE 06/22/2021,11/12/2020,10/12/2020 Pneumococcal Conjugate PCV 13 05/25/2020 Pneumococcal Polysaccharide PPV23 05/28/2015 RSV, Bivalent, Protein Subun it Rsvpref, Diluent (Abrysvo) 11/20/2024 Sars-CoV-2, Unspecified 06/22/2021 ZOSTER Recombinant 07/12/2022,01/24/2022 Surgical History Surgery Date Site/Laterality Comments SPINE SURGERY HIP SURGERY 10/09/2021 Left replaced - Dr. Suggs ANGIOPLASTY 10/09/2020 & 08/11/2024 TUBAL LIGATION 02/1986 FRACTURE SURGERY 10/2010 Medical History Medical History Date Comments Arthritis Emphysema of lung Hypercholesteremia Depression GERD (gastroesophageal reflux disease) 03/2024 Alcohol abuse 1994 Anxiety 2015? Family History Medical History Relation Name Comments No Known Problems Brother 1 Alcohol abuse Father Luis Oquendo Heart disease Father Luis Oquendo Hypertension Father Luis Oquendo Breast cancer Maternal Grandmother Gout Mother [place] Heart disease Mother [place] Hypertension Mother Dana [place] Stroke Mother Dana [place] No Known Problems Other 2 children No Known Problems Sister 1 No Known Problems Sister 2 Relation Name Status Comments Brother 1 Alive Brother 2 Sucide Father Luis Oquendo Maternal Grandmother Mother Dana Tejedapf Other 2 children Alive Sister 1 Alive [...] more points, staff should administer the PHQ-9) 3 05/14/2025 PHQ-9 Answer Date Recorded PHQ-9 Total Score 14 05/14/2025 Personal Safety Answer Date Recorded Getting School Help Needed Denies 08/22 Comments No Sex and Gender Information Value Date Recorded Sex Assigned at Not on file Legal Sex Female 5:33 PM WEB SITE ADMIN Gender Identity Female 09/11/2024 10:09 AM WEB SITE ADMIN Sexual Orientation Straight 09/11/2024 10 :09 AM WEB SITE ADMIN Obstetrics History Para Term AB IAB SAB Ectopic Multiple Livin g Live Births 2 2 2 Date Outcome GA Total Labor Labor/2nd/3rd Weight Sex Type Anes PTL Cathie A1 A5 Name Clin Term Term Last Filed Vital Signs Vital Sign Reading Time Taken Comments Blood Pressure 124/76 05/14/2025 1:42 PM CDT Pulse 62 05/14/2025 1:42 PM CDT Temperature 36.7 C (98 F) 10/10/2024 3:06 PM WEB SITE ADMIN Respiratory Rate 18 05/14/2025 1:42 PM CDT Oxygen Saturation 96% 05/14/2025 1:42 PM CDT Inhaled Oxygen Concentration - - Weight 93 kg (205 lb) 05/14/2025 1:42 PM CDT Height 165.1 cm (5' 5) 05/14/2025 1:42 PM CDT Body Mass Index 34.11 05/14/2025 1:42 PM CDT Plan of Treatment Health Maintenance Due Date Last Done Comments Hepatitis C Screening 1955 DTaP/Tdap/Td Vaccine (1 - Tdap) 1966 Hepatitis B Screening 1973 Lung Cancer Screening 2005 Influenza Vaccine (#1) 2025 , 07/03/2023, 06/14/2022, Additional history exists Pneumococcal vaccine 65+ (3 of 3 - PCV20 or PCV21) 05/29/2025 05/25/2020, 05/28/2015 Postponed f rom 05/25/2025 (Patient declined, but will receive in the future) Fall Risk Assessment 12/12/2025 12/12/2024, 07/14/2024, 07/03/2023, Additional history exists Well Visit 65+ 12/12/2025 12/12/2024, 04/0 12/2024, 07/03/2023, Additional history exists Breast Cancer Screening-Mammogram 12/23/2025 12/23/2024, 07/27/2023, 07/27/2023, Additional history exists Covid-19 Vaccine ( season) 2026 11/20/2024, 08/07/2023, 07/11/2022, Additional history exists Postponed from 05/23/2025 (Patient declined, but will receive in the future) Depression Screening 05/14/2026 05/14/2025, 05/14/2025, 12/12/2024, Additional history exists Osteoporosis Screening-Bone Density Scan 05/19/2026 05/19/2024, 12/26/2021 Colon Cancer Screening-DNA Stool 10/23/2027 10/23/2024, 08/01/2024, 08/12/2021, Additional history exists Zoster Vaccine Completed 07/12/2022, 01/24/2022 Colon Cancer Screening-FIT Discontinued 10/23, 08/01/2024, 08/12/2021, Additional history exists Medical Devices Implanted Type Area Poultry Picker Device Identifier Shelf Expiration Date Model / Serial / Lot [employer] [place] 54mm 36mm Hip Neutral Liner Acetabular Altrx Sterile Latex Free [id number] - [id number] Implanted:Qty: 1 on 10/09/2022 by Clem Suggs MD at [facility] Left: Hip [employer] 08/09/2027 [id number] / / [id number] [employer] [place] 54mm Sector Hip Shell Acetabular Gription Sterile Latex Free [id number] - [id number] Implanted:Qty: 1 on 10/09/2022 by Clem Suggs MD at [facility] Left: Hip [employer] 07/10/2032 [id number] / / [id number] [employer] [place] 6.5mm 35mm Acetabular Cancellous Screw Bone Sterile 1217-35-500 - [id number] Implanted:Qty: 1 on 10/09/2022 by Clem Suggs MD at [facility] Left: Hip [employer] 04/09/2032 [id number] / / [id number] [employer] Actis Collar Hip 7 High Offset Stem Femoral [id number] - [id number] Implanted:Qty: 1 on 10/09/2022 by Clem Suggs MD at [facility] Left: Hip [employer] 04/09/2032 [id number] / / [id number] [employer] Articul/Viet 36mm Cementless Hip +1.5mm 12/14 Taper Head Femoral Latex Free [id number] - [id number] Implanted:Qty: 1 on 10/09/2022 by Clem Suggs MD at [facility] Left: Hip [employer] 09/09/2027 [id number] / / [id number] Procedures Procedure Name Priority Date/Time Associated Diagnosis Comments POCT URINALYSIS DIPSTICK Routine 05/14/2025 2:13 PM CDT Abdominal pain Altered mental status, unspecified altered mental status type SCAN - PATHOLOGY 04/09/2025 SCAN - RADIOLOGY/IMAGING 04/09/2025 SCREENING MAMMOGRAM BILATERAL W JOE Schedule Routine, Read Routine (OP Routine) 12/23/2024 2:00 PM CDT STOOL DNA COLOGUARD Routine 10/23/2024 8:55 AM WEB SITE ADMIN Colon cancer screening DEXA AXIAL SKELETON BONE DENSITY 1 OR MORE SITES Schedule Routine, Read Routine (OP Routine) 05/19/2024 11:38 AM CDT Postmenopausal from Last 3 Months or Most Recently Relevant to Health Maintenance Results * (ABNORMAL) POCT urinalysis dipstick (05/14/2025 2:13 PM CDT) Color, Urine, POC Dark Yellow Clarity, ur, POC Cloudy(A) Clear Glucose, ur, POC Negative Negative Bilirubin, ur, POC 1+(A) Negative Ketones, ur, POC Trace(A) Negative Specific [place], POC 1.030 1.003 - 1.030 Blood, ur, POC 2+(A) Negative pH, ur, POC 5.5 5.0 - 8.0 Protein, ur, POC 2+(A) Negative Urobilinogen, urine, POC 1.0 0.2 - 1.0 mg/dL Nitrite, ur, POC Negative Negative Leukocytes, ur, POC Trace(A) Negative Lot Number [id number] Urine 05/14/2025 2:13 PM CDT us Torsten [facility] POINT OF CARE TEST ORDERABL ES Final Result * SCAN - RADIOLOGY/IMAGING (04/09/2025) Anatomical Region Laterality Modality Other us Provider Scanning Final Result * SCAN - PATHOLOGY (04/09/2025) us Provider Scanning Final Result * Screening Mammogram Bilateral W Joe (12/23/2024 2:00 PM CDT) Anatomical Region Laterality Modality Breast Bilateral Mammography us Historical Provider MD [facility] MAMMO PROCEDURES Dai l Result * Stool DNA - Cologuard (10/23/2024 8:55 AM WEB SITE ADMIN) Stool DNA - Cologuard Negative Negative [employer] (CLIA #:[id number]) Comment: NEGATIVE TEST RESULT. A negative Cologuard [...] (Diego Bauer al, N Engl J Med 2014;370(14):3035-6661) The normal value (reference range) for this assay is negative. COLOGUARD RE-SCREENING RECOMMENDATION: Periodic colorectal cancer screening is an important part of preventive healthcare for asymptomatic individuals at average risk for colorectal cancer. Following a negative Cologuard result, the [place] Cancer Society and U.S. Multi-Society Task Force screening guidelines recommend a Cologuard re-screening interval of 3 years. References: [place] [employer] Society Guideline for Colorectal Cancer Screening: https://www.cancer.org/cancer/nybwd-acklcs-qcqzug/anjhdlbxg-bzwdajrsx-sdazlui/ac s-rec ommendations.html.; Larry DK, Joshua CR, Tom JonesK, Colorectal Cancer Screening: Recommendations for Physicians and Patients from the U.S. Multi-Society Task Force on Colorectal Cancer Screening , Am J Gastroenterology 2017; 112:1508-0663. TEST DESCRIPTION: Composite algorithmic analysis of stool [...] Hawkins et al, N Engl J Med 2014;370(14):3305-2801.) Cologuard may produce a false negative or false positive result (no colorectal cancer or precancerous polyp present at colonoscopy follow up). A negative Cologuard test result does not guarantee the absence of CRC or advanced adenoma (pre-cancer). The current Cologuard screening interval is every 3 years. ([place] Cancer Society and U.S. Multi-Society Task Force). Cologuard performance data in a 10,000 patient pivotal study using colonoscopy as the reference method can be accessed at the following location: www.[employer]/results. Additional description of the Cologuard test process, warnings and precautions can be found at www.[employer].Check I'm Here. Stool 10/23/2024 8:55 AM WEB SITE ADMIN 11/20/2024 9:49 AM CDT Valentín Mandel MD LAB BODY FLUIDS AND STOOLS ORDERABLES Final Result [employer] (CLIA #:[id number]) [address] [place] [address] * Dexa Axial Skeleton Bone Density 1 Or 2 Site (05/19/2024 11:38 AM CDT) Anatomical Region Laterality Modality Body N/A Radiographic Krissy ging Valentín Mandel MD IMG DXA PROCEDURES Final Result from Last 3 Months or Most Recently Relevant to Health Maintenance Insurance MEDICARE ADVANTAGE MEDICARE ADVANTAGE MEDICARE ADVANTAGE [facility] MEDICARE ADVANTAGE Advance Directives For more information, please contact: [phone] * Full Code (Latest Code Status on File) Date Activated Date Inactivated Comments 10/09/2022 5:02 PM 10/11/2022 8:58 PM Care Teams Accounting Advisory Services Manager Relationship Specialty Start Date End Date Valentín Mandel MD [address] [facility] [address] [place] [address] PCP - General Family Medicine 05/03/23 Clem Suggs MD [address] [place] [address] Surgeon Orthopedic Surgery 10/10/22
--- OUTSIDE RECORDS SUMMARY | 2025-05-19 16:27 | XMS_ITS | Encounter Summary ---
Author Organization [facility] Address [address] [place] [address] Care Team Providers Care Apple Thinner Name Role Phone Shyam Lewis DO Primary Care Provider [phone] Valentín Mandel MD Primary Care Provider Encounter Details Date Type Department Care Team (Latest Contact Info) Description 04/19/2021 Mila Message Enc [facility] Multispecialty Care - [facility] [address] [address] [facility] [address] [address], [address] [place] [address] [employer], [facility] Provider please call our office Social History [...] Sex Assigned at Female 10/20/2024 2:15 PM SOCIAL ORGANIZATION PROFESSOR Legal Sex Female 9:56 PM CDT Gender Identity Not on file Sexual Orientation Not on file documented as of this encounter Plan of Treatment Upcoming Encounters Date Type Department Care Team (Late st Contact Info) Description 08/17/2025 1:30 PM SOCIAL ORGANIZATION PROFESSOR Office Visit [facility] [place] [id number] [address] [address] Sahil Marcano Jr., DO [address] [place] [address] documented as of this encounter Visit Diagnoses Not on filedocumented in this encounter Additional Health Concerns Infection Onset Date Last Indicated Resolved Time 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
--- OUTSIDE RECORDS SUMMARY | 2025-05-19 16:27 | XMS_ITS | Clinical Summary ---
Author Organization [facility] Address [address] [place] [address] Care Team Providers Care Specialty Trimmer Name Role Phone Valentín Mandel MD Primary [...] 06/23/2024 Tinnitus, unspecified laterality 07/22/2021 Other emphysema ([facility]) 05/25/2021 Shortness of breath 02/04/2021 Calcification of abdominal aorta 01/31/2021 Overview (01/31/2021): Noted on lumbar x-ray 09/16/20 Carotid atherosclerosis, unspecified laterality 01/31/2021 Overview (01/31/2021): Noted on CT 06/20/13 Mild mood disorder 05/25/2020 Depression, major 2015 Impaired fasting glucose 01/06/2015 Alcoholism ([facility]) 01/06/2015 Insomnia 01/06/2015 Chronic lower back pain 05/22/2014 Sciatica 10/22/2013 Arthralgia of left shoulder region 07/11/2013 Bipolar affective disorder (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 11/22/2012 De Quervain's tenosynovitis 11/22/2012 Ganglion 11/22/2012 Encounters Date Type Department Care Team Description 04/09/2025 9:14 AM CDT - 04/09/2025 11:59 PM CDT Hospital Encounter [facility] [place] [address] Dhiraj Rasmussen MD Discharge Disposition: Home or Self Care (Routine Discharge) 04/09/2025 Travel from Last 3 Months Immunizations Immunization [...] Sex Assigned at Female 10/20/2024 2:15 PM ESCORT BLIND Legal Sex Female 9:56 PM CDT Gender Identity Not on file Sexual Orientation Not on file Last Filed Vital Signs Vital Sign Reading Time Taken Comments Blood Pressure 117/52 08/11/2024 1:08 PM ESCORT BLIND Pulse 84 08/11/2024 1:08 PM ESCORT BLIND Temperature 35.9 C (96.6 F) 08/11/2024 1:08 PM ESCORT BLIND Respiratory Rate 16 08/11/2024 1:08 PM ESCORT BLIND Oxygen Saturation 100% 08/11/2024 1:08 PM ESCORT BLIND Inhaled Oxygen Concentration - - Weight 93.4 kg (206 lb) 10/20/2024 2:22 PM ESCORT BLIND Height 170.2 cm (5' 7) 10/20/2024 2:22 PM ESCORT BLIND Body Mass Index 32.26 10/20/2024 2:22 PM ESCORT BLIND Plan of Treatment Upcoming Encounters Date Type Department Care Team (Late st Contact Info) Description 08/17/2025 1:30 PM ESCORT BLIND Office Visit [facility] [address] [facility] [place] [address] Sahil Marcano Jr., DO [address] [place] [address] Health Maintenance Due Date Last Done Comments Hepatitis C 1973 DTaP, Tdap and Td Vaccines (1 - Tdap) 1974 Lung Cancer Screening 2005 Colorectal Cancer Screening Colonoscopy (10 Years) 09/10/2017 09/10/2007 ASCVD LDL 06/07/2021 06/07/2020, 08/0 02/2019, 04/09/2018, Additional history exists Annual Medicare Wellness Visit 05/26/2022 05/25/2021 PHQ-2 (Physician [place]) 09/10/2024 COVID-19 Vaccine ( season) 2025 11/20/2024, 08/07/2023, 07/11/2022, Additional history exists Pneumococcal Vaccine: 50+ Years (3 of 3 - PCV20 or PCV21) 05/25/2025 05/25/2020, 05/28/2015 Mammogram Screening 04/09/2027 04/09/2025, 07/27/2023, 12/26/2021, Additional history exists Zoster Vaccines Completed 07/12/2022, 01/24/2022 Dexa Scan (General) Completed 05/19/2024, RSV Immunization or 60+ Years Completed 11/20/2024 Meningococcal B Vaccine Aged Out No l onger eligible based on patient's age to complete this topic Meningococcal Vaccine Aged Out No saida mariah eligible based on patient's age to complete this topic RSV Immunizations Under 20 Months Aged Out No longer eligible based on patient's age to complete this topic Medical Devices Implanted Type Area Comedian Device Identifier Shelf Expiration Date Model / Serial / Lot Shell Acetabular [employer] Osseoti G7 4 Hole 56mm F - [id number] Implanted:Qty: 1 on 08/11/2024 by Sahil Marcano Jr., DO at [facility] Hip Components Right: Hip [employer] [id number] 04/05/2034 [id number] / / [id number] Stem Femoral Collar Avenir Complete 6 Standard Hip Sterile Latex Free - [id number] Implanted:Qty: 1 on 08/11/2024 by Sahil Marcano Jr., DO at [facility] [employer] Right: Hip [employer] [id number] 12/16/2028 [id number] / / [id number] Dual Mobility Acetabular System 44mm Bearing Size Liner Size F Neutral Acetabular Liner Co-Cr-Mo Implanted:Qty: 1 on 08/11/2024 by Sahil Marcano Jr., DO at [facility] Right: Hip [employer] [id number] 02/19/2034 [id number] / / [id number] Biolox Option Ceramic Femoral Head Implanted:Qty: 1 on 08/11/2024 by Sahil Marcano Jr., DO at [facility] Right: Hip [employer] [id number] 03/19/2034 [id number] / / [id number] Dual Mobility Vivacit-E Vitamin E Highly Crosslinked Polyethylene Implanted:Qty: 1 on 08/11/2024 by Sahil Marcano Jr., DO at [facility] Right: Hip [employer] [id number] 02/04/2029 [id number] / / [id number] Procedures Procedure Name Priority Date/Time Associated Diagnosis Comments MG DIAGNOSTIC LT DIGI Routine 04/09/2025 10:49 AM CDT Breast calcification, left MG TISSUE STUDY LOC LT Routine 04/09/2025 10:37 AM CDT Breast calcification, left MG STEREO CORE BX LT BIRAD Routine 04/09/2025 10:34 AM CDT Breast calcification, left PATHOLOGY Routine 04/09/2025 12:00 AM CDT Breast calcification, left LIPID PANEL Routine 06/07/2020 9:59 AM CDT Essential familial hypercholesterolemia Encounter For Preventive Health Examination COLONOSCOPY Routine 09/10/2007 12:00 AM ESCORT BLIND from Last 3 Months or Most Recently Relevant to Health Maintenance Results * MG DIAGNOSTIC LT DIGI (04/09/2025 10:49 AM CDT) Anatomical Region Laterality Modality Breast Left Mammography 04/09/2025 12:1 6 PM CDT Impressions 04/09/2025 12:19 PM CDT =====IMPRESSION:===== Left breast biopsy changes with biopsy clip in place. Inferior clip migration as noted. ASSESSMENT: WAITING FOR PATHOLOGY Recommendation: 1: Waiting on Pathology Left Ordered By: DHIRAJ RASMUSSEN Interpreted By: Jason Head MD, 04/09/2025 12:16 PM Narrative 04/09/2025 12:19 PM CDT [facility] [address] [place] [address] EXAMINATION: Digital left mammogram EXAM DATE/TIME: 04/09/2025 10:02 AM REASON FOR EXAM: post bx, left breast calcifications laterally COMPARISON: 01/13/2025, 12/19/2024 TECHNIQUE: Digital left mammogram was performed. This study was read with the assistance of a computer-aided detection system. TISSUE DENSITY: There are scattered areas of fibroglandular density. FINDINGS: Postbiopsy changes of the left breast. Some of the targeted calcifications have been removed. There is a biopsy marker clip in place. Inferior migration of the biopsy clip measures 2 cm. Prominent focal asymmetry compatible with postbiopsy hematoma centered over the biopsy cavity. us Dhiraj Rasmussen MD MAMMO Final Result * MG TISSUE STUDY LOC LT (04/09/2025 10:37 AM CDT) Anatomical Region Laterality Modality Breast Mammography 04/09/2025 12:1 9 PM CDT Impressions 04/09/2025 12:22 PM CDT =====IMPRESSION:===== Left breast specimen contains targeted calcifications. Ordered By: DHIRAJ RASMUSSEN Interpreted By: Jason Head MD, 04/09/2025 12:19 PM Narrative 04/09/2025 12:22 PM CDT [facility] [address] [place] [address] Exam date/time: 04/09/2025 10:02 AM Examination: Left breast specimen Reason For Exam: Left breast calcifications laterally. Comparison: 01/13/2025, 12/19/2024 Findings: Single specimen image is provided. The tissue specimen contains targeted calcifications. Procedure Note Jason Head MD - 04/09/2025 [facility] [address] [facility] [place] [address] Exam date/time: 04/09/2025 10:02 AM Examination: Left breast specimen Reason For Exam: Left breast calcifications laterally. Comparison: 01/13/2025, 12/19/2024 Findings: Single specimen image is provided. The tissue specimen containstargeted calcifications. =====IMPRESSION:===== Left breast specimen contains targeted calcifications. Ordered By: DHIRAJ RASMUSSEN Interpreted By: Jason Head MD, 04/09/2025 12:19 PM Dhiraj Rasmussen MD MAMMO Final Result * MG STEREO CORE BX LT BIRAD (04/09/2025 10:34 AM CDT) LEFT BREAST STRUCTURE / Unknown Narrative Radiology, Technologist - 04/13/2025 11:21 AM CDT This report does not contain a radiologist's interpretation. Please review associated procedure and/or operative report. us Dhiraj Rasmussen MD MAMMO Final Result * Pathology (04/09/2025 12:00 AM CDT) PATHOLOGY [facility] Department of Laboratory Medicine [address] [place] [address] , [email or web address] [id number] Pathology Report Surgical Pathology Report Name: JUAN MIGUEL MALDONADO Specimen #: [id number] Age: 11 1955 (Age: 69) Location: [facility] Sex: F Procedure Date: 04/09/2025 Hospital #: [id number] Date Received: 04/09/2025 Date Reported: 04/10/2025 Provider: DHIRAJ RASMUSSEN MD Source: Left breast, 10:30, needle biopsies Clinical History: Left breast calcifications FINAL DIAGNOSIS: Breast, left at 1030, needle biopsy: - Hyalinized (involuted) fibroadenoma with dystrophic calcifications. - Proliferative fibrocystic change with usual ductal epithelial hyperplasia. - Additional microcalcifications associated with fibrocystic change. - No evidence of malignancy. Gross Description: Received in formalin, labeled with a patient label and as left breast calcs, are multiple needle core biopsies of white-mcclure to yellow-mcclure slightly hemorrhagic soft tissue ranging from 0.4 to 2.7 cm in greatest dimension. The specimen is entirely submitted in cassettes 1-3. Please note: The cold ischemia time for this specimen was less than one hour. It was placed in formalin at 1030 on 04/09/2025 for a total time in formalin of 8.5 hours. Gross examination (when applicable), interpretation, and sign out were performed at [facility], [address] [place] [address]. Electronically Signed Out RYAN ZAMORA MD [facility] 04/09/2025 04/09/2025 2:5 5 PM CDT Comment:Left breast, 10:30, needle biopsies us Dhiraj Rasmussen MD PATHOLOGY/CYTOLOGY ORDERABLES Final Result [facility] [address] [place] [address], [id number] * (ABNORMAL) LIPID PANEL (06/07/2020 9:59 AM CDT) CHOLESTEROL 202(H) 0 - 199 MG/DL [facility] TRIGLYCERIDES 156(H) 0 - 149 MG/DL [facility] HDL 49(L) 50 - 240 MG/DL [facility] LDL (CALCULATED) 122(H) 0 - 99 MG/DL [facility] CHOL/HDL RATIO 4.1 [facility] NON HDL CHOLESTEROL 153(H) 0 - 129 MG/DL [facility] Comment: FOR AGES >=20 YEARS (MG/DL) .................IDEAL....ELEVATED....BORDERLINE......HIGH.....VERY HIGH CHOL*........<200.......................................200-239....>=240 TRIG...........<150.....................150-199......200-499....>=500 LDL-C.......<100...100-129.....130-159......160-189....>=190 NONHDL-C.<130...130-159.....160-189......190-219....>=220 BRANDEE TA, ET AL. NATIONAL LIPID ASSOCIATION RECOMMENDATIONS FOR PATIENT-CENTERED MANAGEMENT OF DYSLIPIDEMIA: PART 1-FULL REPORT. J CLIN LIPIDOL 2015;129-169. *THIRD REPORT OF THE NATIONAL CHOLESTEROL EDUCATION PROGRAM (NCEP) EXPERT PANEL ON DETECTION, EDUCATION, AND TREATMENT OF HIGH BLOOD CHOLESTEROL IN ADULTS (ADULT TREATMENT PANEL III): FINAL REPORT. CIRCULATION 2002; 106:3143. 06/07/2020 9:59 AM CDT 06/08/2020 5:20 AM CDT Narrative [facility] - 06/08/2020 6:49 AM CDT REPORT: [id number] IS PATIENT FASTING?->YES Shyam Lewis DO LABORATORY Final Resul t [facility] [address] [place] [address], * Colonoscopy (09/10/2007 12:00 AM ESCORT BLIND) 09/10/2007 09/10/2007 Narrative [facility] EPIC CONVERSION - 09/10/2007 12:00 AM ESCORT BLIND Documented hx of procedure Procedure Note Dipak Stratton MD - 07/14/2018 Documented hx of procedure us Generic Yasmani Stratton MD GI PROCEDURE ORDERABLES Final Result [facility] TO EPIC CONVERSION from Last 3 Months or Most Recently Relevant to Health Maintenance Additional Health Concerns Infection Onset Date Last Indicated MRSA 04/16/2017 04/16/2017 Insurance [id number] Care Teams Specialty Trimmer Relationship Specialty Start Date End Date Valentín Mandel MD PCP - General FAMILY PRACTICE 09/14/21
--- OUTSIDE RECORDS SUMMARY | 2025-05-19 16:27 | XMS_ITS | Encounter Summary ---
Author Organization [facility] Address [address] [place] [address] Care Team Providers Care Boat Loader Name Role Phone Valentín Mandel MD Primary Care Provider Encounter Details Date Type Department Care Team (Late Contact Info) Description 06/23/2024 MyChart [place] [address] Malinda Nicholson, [facility] [address] [facility] [place] [address] Visit Follow Up Social History Tobacco Use [...] Sex Assigned at Female 10/20/2024 2:15 PM NEUROLOGICAL PHYSIOTHERAPIST Legal Sex Female 9:56 PM CDT Gender Identity Not on file Sexual Orientation Not on file documented as of this encounter Plan of Treatment Upcoming Encounters Date Type Department Care Team (Late Contact Info) Description 08/17/2025 1:30 PM NEUROLOGICAL PHYSIOTHERAPIST Office Visit [address] [place] [id number] Sahil Marcano Jr., DO [address] [place] [address] documented as of this encounter Visit Diagnoses Not on filedocumented in this encounter Additional Health Concerns Infection Onset Date Last Indicated Resolved Time MRSA 04/16/2017 04/16/2017 Assessment Noted Time PHQ-9 Depression Total Score: 2 05/25/20 21 11:41 AM CDT documented as of this encounter Care Teams Boat Loader Relationship Specialty Start Date End Date Valentín Mandel MD PCP - General FAMILY PRACTICE 09/14/21 documented as of this encounter
--- OUTSIDE RECORDS SUMMARY | 2025-05-19 16:27 | XMS_ITS | Encounter Summary ---
Author Organization [facility] Address [address] [place] [address] Care Team Providers Care Returns Supervisor Name Role Phone Clem Suggs MD Unavailable [phone] Valentín Mandel MD Primary Care Provi desiree Encounter Details Date Type Department Care Team (Late st Contact Info) Description 04/09/2025 Orders Only [facility] Health Information Management [address] [place] [address] Scanning, Provider Social History Tobacco Use Types Packs/Day Years [...] on file Legal Sex Female 5:33 PM MAINTENANCE REPAIRER Gender Identity Female 09/11/2024 10:09 AM MAINTENANCE REPAIRER Sexual Orientation Straight 09/11/2024 10 :09 AM MAINTENANCE REPAIRER documented as of this encounter Plan of Treatment Not on file documented as of this encounter Procedures Procedure Name Priority Date/Time Associated Diagnosis Comments SCAN - RADIOLOGY/IMAGING 04/09/2025 SCAN - PATHOLOGY 04/09/2025 documented in this encounter Results * SCAN - PATHOLOGY (04/09/2025) us Provider Scanning Final Result * SCAN - RADIOLOGY/IMAGING (04/09/2025) Anatomical Region Laterality Modality Other us Provider Scanning Final Result documented in this encounter Visit Diagnoses Not on filedocumented in this encounter Care Teams Returns Supervisor Relationship Specialty Start Date End Date Valentín Mandel MD [address] [place] [address] PCP - General Family Medicine 05/03/23 Clem Suggs MD [address] [facility] [address] [place] [address] Surgeon Orthopedic Surgery 10/10/22 documented as of this encounter
== END 2025-05-19 15:07 | disposition home or self-care (01) ==
LOC: CHSLAB 15:08
PROVIDERS: PCP Family Medicine
DX: Z79.899 Other long term (current) drug therapy (principal)
CPT/HCPCS: 80307; 80324; 80359

== ENCOUNTER 2025-09-07 16:30 | Outpatient (RCR) | payer MEDICARE, SELFPAY ==
--- NOTE | 2025-07-27 13:56 | OPREHPOC ---
Outpatient Therapy Plan of Care This is a Multidisciplinary Plan of Care that may contain components documented by all disciplines (PT, OT, and ST.) PT Problem 1 PT Problem #1 Knowledge Deficit PT Goal 1 Goal / Goal Update independent and compliant with HEP Target Visit 6 PT Problem 2 PT Problem #2 Pain PT Goal 1 Goal / Goal Update decrease pain at worst in bilateral shoulders to 4 /10 or less Target Visit 12 PT Problem 3 PT Problem #3 Impaired Range of Motion PT Goal 1 Goal / Goal Update 145 degrees bilateral active shoulder flex Target Visit 12 PT Problem 4 PT Problem #4 Impaired Strength PT Goal 1 Goal / Goal Update 4/5 or better overall bilateral shoulder strength 4+/5 or better overall bilateral elbow strength Target Visit 12 PT Problem 5 PT Problem #5 Impaired Functional Mobility PT Goal 1 Goal / Goal Update quick dash to display 30% or less functional deficits patient to lift 5lbs from waist to shoulder level shelf with bilateral arms Target Visit 12
--- NOTE | 2025-07-27 13:56 | PTOPEVAL1 ---
Assessment and note entered by JT File, PT Evaluation Information Assessment Status Evaluation ICD-10 Condition Codes (PT) Pain in right shoulder M25.511,Pain in left shoulder M25.512 Onset 01/24/25 Subjective Information patient reports she has pain in both shoulders/ arms. she reports pain mostly along the side of the upper arms. she reports she has increased pain with reaching up high into cabinets, reaching out to her side and behind her to turn of the bedside lamp, and doing her hair. she reports she has had pain in the bilateral shoulder for about 6-12 months. she reports she has had xrays recently, and reports there are no fractures. she reports she does have some arthritis. Reported Pain Level Pain Score 0: Self Report Assessment PT Clinical Summary mrs. salamanca presents to skilled PT services for evaluation and treatment of bilateral shoulder pain. she presents today with signs and symptoms with rotator cuff arthropathy and GH OA. she displays bilateral shoulder weakness, tenderness to palpation, and decreased rom. continued skilled PT is indicated to improve her objective/ functional deficits and progress towards a return to her prior level functional activity performance /quality of life. Plan of Care Interventions Electrical Stimulation,Hot Pack/Cold Pack,Manual Therapy,Neuro Re-education,Patient/Caregiver Education,Therapeutic Activities,Therapeutic Exercise PT Services Indicated Yes Treatment Frequency and 3x weekly for 12 visits Duration These treatments will address the objective and functional deficits as defined above. The patient will be advanced safely and appropriately in order for the patient to progress towards his/her prior level of function. Additional exercises will be introduced and as well as a comprehensive home exercise program upon discharge, if needed, ?to ensure carryover of functional gains achieved in the clinic. This treatment plan has been reviewed and agreement upon by the patient.
--- NOTE | 2025-08-28 15:10 | OPREHPOC ---
Outpatient Therapy Plan of Care This is a Multidisciplinary Plan of Care that may contain components documented by all disciplines (PT, OT, and ST.) PT Problem 1 PT Problem #1 Knowledge Deficit PT Goal 1 Goal / Goal Update independent and compliant with HEP Target Visit 6 Progress Not Met PT Problem 2 PT Problem #2 Pain PT Goal 1 Goal / Goal Update decrease pain at worst in bilateral shoulders to 4 /10 or less Target Visit 12 Progress Met PT Problem 3 PT Problem #3 Impaired Range of Motion PT Goal 1 Goal / Goal Update 145 degrees bilateral active shoulder flex - partially met Target Visit 12 Progress Partially Met PT Problem 4 PT Problem #4 Impaired Strength PT Goal 1 Goal / Goal Update 4/5 or better overall bilateral shoulder strength -met 4+/5 or better overall bilateral elbow strength - met Target Visit 12 Progress Met PT Problem 5 PT Problem #5 Impaired Functional Mobility PT Goal 1 Goal / Goal Update quick dash to display 30% or less functional deficits -not met patient to lift 5lbs from waist to shoulder level shelf with bilateral arms -met Target Visit 12 Progress Partially Met
--- NOTE | 2025-08-28 15:11 | PTOPPROG ---
Assessment and note entered by Natali Brizuela, PT Evaluation Information Assessment Status Progress ICD-10 Condition Codes (PT) Pain in right shoulder M25.511,Pain in left shoulder M25.512 Onset 01/24/25 Subjective Information Kymberly reports she is getting better with PT and she feels like she's gotten a lot stronger. She does still note occasional pain in the shoulders but states she also avoids the things that cause her pain. She states she has not tried lifting her arms high up or tried reaching into cabinets. She states she does have some pain with reaching behind her back to perform hygiene tasks but that she is able to reach that far. Assessment PT Clinical Summary Mrs. Osullivan has attended 10 skilled PT visits addressing bilat shoulder pain. Since beginning PT she notes reduction of pain and also demonstrates improved bilat shoulder AROM and strength. She has met her goal addressing bilat shoulder strength and has nearly met her goal addressing shoulder AROM. She is also able to lift 5# using bilateral arms without difficulty to perform functional tasks. Continued skilled PT intervention is indicated to make further progress toward remaining therapeutic goals to achieve optimal shoulder AROM and improve overall functional use of bilateral shoulders. Plan of Care Interventions Electrical Stimulation,Hot Pack/Cold Pack,Manual Therapy,Neuro Re-education,Patient/Caregiver Education,Therapeutic Activities,Therapeutic Exercise PT Services Indicated Yes Treatment Frequency and Continue per POC Duration These treatments will address the objective and functional deficits as defined above. The patient will be advanced safely and appropriately in order for the patient to progress towards his/her prior level of function. Additional exercises will be introduced and as well as a comprehensive home exercise program upon discharge, if needed, ?to ensure carryover of functional gains achieved in the clinic. This treatment plan has been reviewed and agreement upon by the patient.
--- NOTE | 2025-09-07 17:20 | OPREHPOC ---
Outpatient Therapy Plan of Care This is a Multidisciplinary Plan of Care that may contain components documented by all disciplines (PT, OT, and ST.) PT Problem 1 PT Problem #1 Knowledge Deficit PT Goal 1 Goal / Goal Update independent and compliant with HEP Target Visit 6 Progress Not Met PT Problem 2 PT Problem #2 Pain PT Goal 1 Goal / Goal Update decrease pain at worst in bilateral shoulders to 4 /10 or less Target Visit 12 Progress Met PT Problem 3 PT Problem #3 Impaired Range of Motion PT Goal 1 Goal / Goal Update 145 degrees bilateral active shoulder flex -met Target Visit 12 Progress Met PT Problem 4 PT Problem #4 Impaired Strength PT Goal 1 Goal / Goal Update 4/5 or better overall bilateral shoulder strength -met 4+/5 or better overall bilateral elbow strength - met Target Visit 12 Progress Met PT Problem 5 PT Problem #5 Impaired Functional Mobility PT Goal 1 Goal / Goal Update quick dash to display 30% or less functional deficits -not met patient to lift 5lbs from waist to shoulder level shelf with bilateral arms -met Target Visit 12 Progress Partially Met
--- NOTE | 2025-09-07 17:20 | PTOPDC ---
Assessment and note entered by Natali Brizuela, PT Evaluation Information Assessment Status Discharge ICD-10 Condition Codes (PT) Pain in right shoulder M25.511,Pain in left shoulder M25.512 Onset 01/24/25 Subjective Information Kymberly reports she still has shoulder pain occasionally but it's not as bad. She reports she avoids the tasks that cause her pain. She states she has not been doing exercises at home for her shoulders but is willing to try. Reported Pain Level Pain Score 0: Self Report Assessment PT Clinical Summary Mrs. Osullivan has attended 12 skilled PT visits addressing bilat shoulder pain. Since starting PT pt has experienced a significant reduction in her pain and also demonstrates improved bilat shoulder AROM and strength. While she does still avoid the tasks that cause her shoulder pain such as opening jars and lifting heavy loads, she has responded well to PT and has met or partially met all therapeutic goals at this time except for adherence to HEP. Educated pt on the importance of continuing exercises at home to maintain her progress and new HEP handout provided. Pt will be discharged from PT this date. Plan of Care PT Services Indicated No
== END 2025-09-07 20:00 | disposition home or self-care (01) ==
LOC: CHSPT 16:30
PROVIDERS: Visit Provider Family Medicine
DX: M25.511 Pain in right shoulder (principal); M25.512 Pain in left shoulder; G89.29 Other chronic pain
CPT/HCPCS: 97014; 97110; 97112; 97150; 97161; G0283